=== PATIENT | female | born 1995 | race Caucasian/White ===

== ENCOUNTER 2023-05-26 13:59 | Outpatient (OUT) | payer BC, SELFPAY ==
--- NOTE | 2023-05-26 14:01 | US_ITS ---
The [address] [address] Patient Name: SUNNY RICHARDSON MRN: [id number] date: 1995 Sex: F Assigned Patient Location: US Current Patient Location: US Accession/Order Number: [id number] Exam Date: 05/26/2023 14:03 Report Date: 05/26/2023 15:45 At the request of: JESSICA HUGHES Procedure: US pelvis w/ transvaginal EXAMINATION: US pelvis w/ transvaginal HISTORY: Pelvic And Perineal Pain COMPARISON: No relevant comparison available. FINDINGS: The uterus is normal in size, contour and echotexture measuring 6.7 x 4.4 x 4.0 cm. Retroflexed. No focal myometrial mass. The endometrium measures 8.2 mm, normal. The right ovary is normal measuring 2.5 x 1.4 x 1.4 cm. Normal color and Doppler flow. Multiple peripheral subcentimeter anechoic areas consistent with follicles measuring from 2 to 3 mm in size. The left ovary is normal in appearance measuring 2.0 x 1.8 x 1.4 cm. Normal color and multiple peripheral subcentimeter anechoic areas consistent with follicles measuring 2 to 4 mm in size. US/US pelvis w/ transvaginal IMPRESSION: Multiple bilateral peripheral follicles not meeting criteria for polycystic ovarian morphology Normal uterus Electronically authenticated by: PATRICIA LOAIZA Date: 05/26/2023 15:45
== END 2023-05-26 14:00 | disposition home or self-care (01) ==
LOC: US 13:59
PROVIDERS: PCP Nurse Practitioner; Visit Provider Nurse Practitioner
DX: R10.2 Pelvic and perineal pain (principal)
CPT/HCPCS: 76830; 76856

== ENCOUNTER 2024-04-19 20:45 | Outpatient (REF) | payer BC, SELFPAY ==
--- OUTSIDE RECORDS SUMMARY | 2024-04-19 20:48 | XMS_ITS | CCD ---
Author Organization [facility] Care Team Providers Care Sheet Finisher Name Role Phone Barbra Davis Unavailable Jaye Lyn Unavailable DIAB ., KETTY Attending Unavailable DIAB ., KETTY Consulting Unavailable DIAB . KETTY Admitting Unavailable MCGREGOR ., DR LINDY Renteria Primary Care Unavailable CAROL ., DR LO Attending Unavailable CAROL ., DR LO Consulting Unavailable CAROL ., DR LO Admitting Unavailable MCGREGOR ., DR LINDY Renteria Primary Care Unavailable Dana Cazares Primary Care Physician [phone] Juliette Marquez Unavailable Barbra Davis Attending Unavailable Barbra Davis Admitting Unavailable Lindy Mcgregor MD Primary Care Provider [phone] YESICA SALDIVAR Attending Unavailable RUSHERLAYO Attending Unavailable RUSHERLAYO Attending Unavailable RUSHERLAYO Attending Unavailable DeboraDana Attending Unavailable DeboraDana burgos Attending Unavailable MD Aashish Bazan Attending Unavailable DeboraDana burgos Attending Unavailable Sher FINE Attending Unavailable DeboraDana Attending Unavailable DeboraDana Attending Unavailable Medications Current Medications Medication Drug Class(es) Dates Sig (Normalized) Sig (Original) amoxicillin 875 mg / clavulanate 125 mg oral tablet (1 source) Penicillin-class Antibacterial Start: 09-28-2021 take 1 tablet by mouth every twelve hours Amoxicillin-Pot Clavulanate 875-125 MG 1 tablet Orally every 12 hrs for 10 day(s) Sep, Active Ethinyl Estradiol / Levonorgestrel (1 source) Progestin, Estrogen, Progestin-containing Intrauterine Device Start: 03-25-2023 levonorgestrel-e thinyl estradiol (Seasonale) 0.15-0.03 MG tablet Take 1 tablet by mouth in the morning. 0 03/25/2023 Active fluticasone propionate 0.05 mg/actuat metered dose nasal spray (1 source) Corticosteroid Start: 09-28-2021 take 2 spray(s) nasal route once daily Fluticasone Propionate 50 MCG/ACT 2 sprays Nasally Once a day for 14 day(s) Sep, Active ibuprofen 800 mg oral tablet (8 sources) Nonsteroidal Anti-inflammatory Drug Start: 01-30-2023 take 1 tablet by mouth every eight hours ibuprofen 800 MG tablet Take 800 mg by mouth every 8 (eight) hours. PRN 0 01/30/2023 Active predniSONE 20 mg oral tablet (1 source) Start: 09-28-2021 take 1 tablet by mouth every twelve hours predniSONE 20 MG 1 tablet Orally bid for 5 day(s) Sep, Active terbinafine 250 mg oral tablet (5 sources) Allylamine Antifungal take 1 tablet by mouth in the morning terbinafine (LamISIL) 250 MG tablet Take 250 mg by mouth in the morning. 0 Active LamISIL TABLET F OR TOE NAIL FUNGUS Active Completed/Discontinued Medications Medication Drug Class(es) Dates Sig (Normalized) Sig (Original) cyclobenzaprine hydrochloride 10 mg oral tablet (4 sources) Muscle Relaxant take 1 tablet by mouth every eight hours as needed Cyclobenzaprine HCl 10 MG 1 tablet Orally every 8 hours prn for 7 days Not-Taking Triamcinolone (6 sources) Corticosteroid Start: 05-21-2016 KENALOG - 10 mg May, 40 mg Problems Active Problems Problem Classification Problem Date Documented Da te Episodic/Chronic Acute bronchitis (6 sources) Acute bronchitis; Translations: [Acute bronchitis] Episodic Genitourinary symptoms and ill-defined conditions (3 sources) Dysuria; Translations: [Dysuria] Onset: 05-11-2023 Episodic Other connective tissue disease (1 source) Pain in hallux; Translations: [Pain in right toe(s)] 07-16-2023 Episodic Other nervous system disorders (1 source) Difficulty walking; Translations: [Difficulty in walking, not elsewhere classified] 07-16-2023 Chronic Other nutritional; endocrine; and metabolic disorders (2 sources) Overweight in adulthood with body mass index of 25 or more but less than 30 02-25-2023 Episodic Other skin disorders (1 source) Disorder of skin; Translations: [Other specified disorders of the skin and subcutaneous tissue] Onset: 02-25-2023 Episodic Other skin disorders (2 sources) Pilonidal disease 02-25-2023 Episodic Other skin disorders (1 source) Ingrowing nail; Translations: [Ingrowing nail] 07-16-2023 Episodic Other upper respiratory infections (8 sources) Upper respiratory infection; Translations: [Upper respiratory infection] Onset: 09-23-2021 Resolved: 09-28-2021 Episodic Skin and subcutaneous tissue infections (7 sources) Pilonidal cyst with abscess; Translations: [Pilonidal cyst] Onset: 11-10-2022 Episodic Sprains and strains (1 source) Strain of other muscles, fascia and tendons at shoulder and upper arm level, right arm, initial encounter Episodic Unclassified (4 sources) Patient encounter status 01-30-2023 Unclassified (1 source) Cancer cervix screening status 03-18-2023 Past or Other Problems Problem Classification Problem Date Documented Date Episodic/Chronic Fever of unknown origin (1 source) Fever, unspecified Onset: 09-23-2021 Resolved: 09-23-2021 Episodic Immunizations and screening for infectious disease (1 source) Encounter for screening for human papillomavirus (HPV); Translations: [ENC SCREENING HUMAN PAPILLOMAVIRUS] Onset: 03-06-2022 Episodic Other screening for suspected conditions (not mental disorders or infectious disease) (4 sources) Encounter for screening for malignant neoplasm of cervix; Translations: [ENC SCREENING MALIG NEOPLASM CERV] Onset: 03-05-2022 Episodic Results Test Name Value Interpretation Reference Range Facility Family Medicine Office/Clini c Noteon 04-11-2024 Family Medicine Office/Clinic Note Family Medicine Office/Clinic Note HPI Staff Jewell is a 28 year old female presenting with cough, congestion, Onset; Has had cough for about a month, was seen in on dx'd with bronchiolitis tx'd with albuterol, prednisone, and Benzonatate 100 mg She doesn't think her cough is getting better History of Present Illness pt presents today for cough >4 weeks. Review of Systems PHQ Score Initial Depression Screen Score: 2 SCORE Physical Exam Vitals & Measurements T: 36.1 ???C(Temporal Artery) HR: 86(Peripheral) RR: 20 BP: 122/84 SpO2: 100% HT: 66 in HT: 167.6 cm WT: 72.5 kg WT: 159.5 lb BMI: 25.81 General: alert, no acute distress ENMT: oral mucosa moist, no pharyngeal erythema or exudate Cardiovascular: regular rate and rhythm, normal peripheral perfusion Respiratory: Lungs CTA, respirations non labored Extremities: no deformity, no trauma Neurological: oriented x 4, LOC appropriate for age, CN II-XII intact, motor strength equal & normal bilaterally, speech normal Assessment/Plan 1. Bronchitis (J40: Bronchitis, not specified as acute or chronic) pt presents today with continued cough for greater than 4 weeks. was treated by with steroid, inhaler and Tessalon pearls. pt is still coughing. lungs are clear. will send in z louise and pt encouraged to get mucinex. RTC as needed Ordered: azithromycin, = 1 packet(s), Oral, As Directed, as directed on package labeling, X 5 day(s), # 6 tab(s), Refills(s) 0, Pharmacy: [facility]/pharmacy #[id number], 167.6, cm, 04/11/24 14:44:00 EDT, Height/Length Dosing, 72.5, kg, 04/11/24 14:44:00 EDT, Weight Dosing 2. BMI 25.0-25.9,adult (Z68.25: Body mass index [BMI] 25.0-25.9, adult) BMI education given Ordered: azithromycin, = 1 packet(s), Oral, As Directed, as directed on package labeling, X 5 day(s), # 6 tab(s), Refills(s) 0, Pharmacy: [facility]/pharmacy #[id number], 167.6, cm, 04/11/24 14:44:00 EDT, Height/Length Dosing, 72.5, kg, 04/11/24 14:44:00 EDT, Weight Dosing 3. Non-smoker (Z78.9: Other specified health status) continue not smoking Ordered: azithromycin, = 1 packet(s), Oral, As Directed, as directed on package labeling, X 5 day(s), # 6 tab(s), Refills(s) 0, Pharmacy: [facility]/pharmacy #[id number], 167.6, cm, 04/11/24 14:44:00 EDT, Height/Length Dosing, 72.5, kg, 04/11/24 14:44:00 EDT, Weight Dosing 4. Overweight (BMI 25.0-29.9) (E66.3: Overweight) see above Ordered: azithromycin, = 1 packet(s), Oral, As Directed, as directed on package labeling, X 5 day(s), # 6 tab(s), Refills(s) 0, Pharmacy: [facility]/pharmacy #[id number], 167.6, cm, 04/11/24 14:44:00 EDT, Height/Length Dosing, 72.5, kg, 04/11/24 14:44:00 EDT, Weight Dosing Follow-up No qualifying data available Problem List/Past Medical History Ongoing Bacterial vaginitis BMI 25.0-25.9,adult Bronchitis Cervical cancer screening PCOS (polycystic ovarian syndrome) Pelvic pain Pilonidal cyst Pilonidal disease Vaginal sasha Well woman exam Wellness examination Historical No qualifying data Procedure/Surgical History Reattachment of finger. Medications Albuterol (Eqv-Proventil HFA) 90 mcg/inh inhalation aerosol azithromycin 250 mg Tab, 1 packet(s), Oral, As Directed benzonatate 100 mg Cap ethinyl estradiol-levonorges trel extended cycle 30 mcg-0.15 mg Tab, See Instructions ibuprofen 800 mg Tab, 800 mg= 1 tab(s), Oral, q8hr, 1 refills Allergies No Known Allergies Social History Alcohol - Denies Alcohol Use, 02/25/2023 Never., 04/11/2024 Substance Abuse - Denies Substance Abuse, 02/25/2023 Never., 04/11/2024 Tobacco Never (less than 100 in lifetime) Tobacco Use:. Never Smokeless Tobacco Use:. Cigarettes, 04/11/2024 Family History Acute myocardial infarction: Grandparent. Cancer: Grandparent. Diabetes mellitus type 2: Grandparent. Immunizations Vaccine Date Status Comments influenza virus vaccine, inactivated - Not Given Postpone due to refusal [facility] Comment on above: Result Comment: Elec tronically Signed By: Dana Pastor\.amanda\Date and Time Signed: 04/11/24 14:57 EDT Ambulatory Visit Summaryon 1 08-11-2022 Ambulatory Visit Summary JEWELL RICHARDSON :1995 Visit Date:06/10/2023 Ambulatory Visit Instructions Your Diagnosis PCOS (polycystic ovarian syndrome) BMI 23.0-23.9, adult Non-smoker Your Care Team Attending Physician - Dana Pastor Primary Care Physician - Dana Pastor This Is Your Medications List ethinyl estradiol-levonorges trel (Jolessa oral tablet) ibuprofen (ibuprofen 800 mg Tab) Procedures Performed Reattachment of finger. Discharge Vitals Heart Rate (Peripheral) 76 Respiratory Rate 18 Blood Pressure 110/72 Height 167.6 cm Height 66 in Weight 67.0 kg Weight 147.4 lb BMI 23.85 Medications What How Much When Instructions Unchanged ethinyl estradiol-levonorges trel (Jolessa oral tablet) 1 Tablets By Mouth Every day Unchanged ibuprofen (ibuprofen 800 mg Tab) 1 Tablets By Mouth Every 8 hours Allergies No Known Allergies Problems Ongoing - Any problem that you are currently receiving treatment for. Bacterial vaginitis BMI 25.0-25.9,adult Cervical cancer screening PCOS (polycystic ovarian syndrome) Pelvic pain Pilonidal cyst Pilonidal disease Vaginal sasha Well woman exam Wellness examination Patient Survey You may receive a survey via text or e-mail asking about your office visit. Please share your experience with us by completing your survey. We appreciate your feedback and thank you for choosing us for your care. Education Materials Polycystic Ovary Syndrome Polycystic ovarian syndrome (PCOS) is a common hormonal disorder among women of reproductive age. In most women with PCOS, small fluid-filled sacs (cysts) grow on the ovaries. PCOS can cause problems with menstrual periods and make it hard to get and stay . If this condition is not treated, it can lead to serious health problems, such as diabetes and heart disease. What are the causes? The cause of this condition is not known. It may be due to certain factors, such as: ? Irregular menstrual cycle. ? High levels of certain hormones. ? Problems with the hormone that helps to control blood sugar (insulin). ? Certain genes. What increases the risk? You are more likely to develop this condition if you: ? Have a family history of PCOS or type 2 diabetes. ? Are overweight, eat unhealthy foods, and are not active. These factors may cause problems with blood sugar control, which can contribute to PCOS or PCOS symptoms. What are the signs or symptoms? Symptoms of this condition include: ? Ovarian cysts and sometimes pelvic pain. ? Menstrual periods that are not regular or are too heavy. ? Inability to get or stay . ? Increased growth of hair on the face, chest, stomach, back, thumbs, thighs, or toes. ? Acne or oily skin. Acne may develop during adulthood, and it may not get better with treatment. ? Weight gain or obesity. ? Patches of thickened and dark brown or black skin on the neck, arms, breasts, or thighs. How is this diagnosed? This condition is diagnosed based on: ? Your medical history. ? A physical exam that includes a pelvic exam. Your health care provider may look for areas of increased hair growth on your skin. ? Tests, such as: ? An ultrasound to check the ovaries for cysts and to view the lining of the uterus. ? Blood tests to check levels of sugar (glucose), male hormone (testosterone), and female hormones (estrogen and progesterone). How is this treated? There is no cure for this condition, but treatment can help to manage symptoms and prevent more health problems from developing. Treatment varies depending on your symptoms and if you want to have a baby or if you need control. Treatment may include: ? Making nutrition and lifestyle changes. ? Taking the progesterone hormone to start a menstrual period. ? Taking control pills to help you have regular menstrual periods. ? Taking medicines such as: ? Medicines to make you ovulate, if you want to get . ? Medicine to reduce extra hair growth. ? Having surgery in severe cases. This may involve making small holes in one or both of your ovaries. This decreases the amount of testosterone that your body makes. Follow these instructions at home: ? Take [id number]-whkuypp and prescription medicines only as told by your health care provider. ? Follow a healthy meal plan that includes lean proteins, complex carbohydrates, fresh fruits and vegetables, low-fat dairy products, healthy fats, and fiber. ? If you are overweight, lose weight as told by your health care provider. Your health care provider can determine how much weight loss is best for you and can help you lose weight safely. ? Keep all follow-up visits. This is important. Contact a health care provider if: ? Your symptoms do not get better with medicine. ? Your symptoms get worse or you develop new symptoms. Sum (more content not included)... Normal [facility] Medicine Office/Clini c Noteon 06-10-2023 Family Medicine Office/Clinic Note HPI Staff Jewell is a 27 year old female presenting to go over Ultrasound Pt has US of pelvis with transvaginal on 05/26/23 due to pain ,pt here to discuss results History of Present Illness pt presents today to discuss pelvic u/s results Review of Systems PHQ Score Initial Depression Screen Score: 1 SCORE ROS - Provider Constitutional: no fever, no chills, no sweats, no fatigue Respiratory: no shortness of breath, no cough, no orthopnea, no wheezing. Cardiovascular: no chest pain, no palpitations, no edema. Neurologic: no headache, no dizziness, no numbness, no weakness. Physical Exam Vitals & Measurements HR: 76(Peripheral) RR: 18 BP: 110/72 SpO2: 98% HT: 66 in HT: 167.6 cm WT: 67.0 kg WT: 147.4 lb BMI: 23.85 General: alert, no acute distress ENMT: oral mucosa moist, no pharyngeal erythema or exudate Cardiovascular: regular rate and rhythm, normal peripheral perfusion Respiratory: Lungs CTA, respirations non labored Extremities: no deformity, no trauma Neurological: oriented x 4, LOC appropriate for age, CN II-XII intact, motor strength equal & normal bilaterally, speech normal Assessment/Plan 1. PCOS (polycystic ovarian syndrome) (E28.2: Polycystic ovarian syndrome) pt presents today to go over pelvic u/s results. pt is also c/o vaginal irritation. she has an appointment with DR. Mcnulty tomorrow for the irritation. all questions answered. RTC as needed 2. BMI 23.0-23.9, adult (Z68.23: Body mass index [BMI] 23.0-23.9, adult) BMI education complete 3. Non-smoker (Z78.9: Other specified health status) continue not smoking Orders: fluconazole, 150 mg = 1 tab(s), Oral, Once, take one tab on day 1 and 1 tab on day 4, # 2 tab(s), Refills(s) 0, Pharmacy: [facility]/pharmacy #[id number], 167.6, cm, 05/19/23 8:23:00 EST, Height/Length Dosing, 68.2, kg, 05/19/23 8:23:00 EST, Weight Dosing metronidazole, 500 mg = 1 tab(s), Oral, q12hr, # 14 tab(s), Refills(s) 0, Pharmacy: [facility]/pharmacy #[id number], 167.6, cm, 05/19/23 8:23:00 EST, Height/Length Dosing, 68.2, kg, 05/19/23 8:23:00 EST, Weight Dosing Follow-up No qualifying data available Patient Education Polycystic Ovary Syndrome Ovarian Cyst, [id number] Diet for Polycystic Ovary Syndrome Problem List/Past Medical History Ongoing Bacterial vaginitis BMI 25.0-25.9,adult Cervical cancer screening PCOS (polycystic ovarian syndrome) Pelvic pain Pilonidal cyst Pilonidal disease Vaginal sasha Well woman exam Wellness examination Historical No qualifying data Procedure/Surgical History Reattachment of finger. Medications ibuprofen 800 mg Tab, 800 mg= 1 tab(s), Oral, q8hr, 1 refills Jolessa oral tablet, 1 tab(s), Oral, Daily, 2 refills Allergies No Known Allergies Social History Alcohol - Denies Alcohol Use, 02/25/2023 Substance Abuse - Denies Substance Abuse, 02/25/2023 Tobacco Never (less than 100 in lifetime) Tobacco Use:. Never Smokeless Tobacco Use:. Household tobacco concerns: No., 06/10/2023 Family History Acute myocardial infarction: Grandparent. Cancer: Grandparent. Diabetes mellitus type 2: Grandparent. Immunizations Vaccine Date Status Comments influenza virus vaccine, inactivated - Not Given Postpone due to refusal [facility] Comment on above: Result Comment: Elec tronically Signed By: Dana Pastor\.amanda\Date and Time Signed: 06/10/23 08:52 EST Patient Educationon 06-10-20 Patient Education Obstetrics and Gynecology Polycystic Ovary Syndrome Polycystic ovarian syndrome (PCOS) is a common hormonal disorder among women of reproductive age. In most women with PCOS, small fluid-filled sacs (cysts) grow on the ovaries. PCOS can cause problems with menstrual periods and make it hard to get and stay . If this condition is not treated, it can lead to serious health problems, such as diabetes and heart disease. What are the causes? The cause of this condition is not known. It may be due to certain factors, such as: ? Irregular menstrual cycle. ? High levels of certain hormones. ? Problems with the hormone that helps to control blood sugar (insulin). ? Certain genes. What increases the risk? You are more likely to develop this condition if you: ? Have a family history of PCOS or type 2 diabetes. ? Are overweight, eat unhealthy foods, and are not active. These factors may cause problems with blood sugar control, which can contribute to PCOS or PCOS symptoms. What are the signs or symptoms? Symptoms of this condition include: ? Ovarian cysts and sometimes pelvic pain. ? Menstrual periods that are not regular or are too heavy. ? Inability to get or stay . ? Increased growth of hair on the face, chest, stomach, back, thumbs, thighs, or toes. ? Acne or oily skin. Acne may develop during adulthood, and it may not get better with treatment. ? Weight gain or obesity. ? Patches of thickened and dark brown or black skin on the neck, arms, breasts, or thighs. How is this diagnosed? This condition is diagnosed based on: ? Your medical history. ? A physical exam that includes a pelvic exam. Your health care provider may look for areas of increased hair growth on your skin. ? Tests, such as: ? An ultrasound to check the ovaries for cysts and to view the lining of the uterus. ? Blood tests to check levels of sugar (glucose), male hormone (testosterone), and female hormones (estrogen and progesterone). How is this treated? There is no cure for this condition, but treatment can help to manage symptoms and prevent more health problems from developing. Treatment varies depending on your symptoms and if you want to have a baby or if you need control. Treatment may include: ? Making nutrition and lifestyle changes. ? Taking the progesterone hormone to start a menstrual period. ? Taking control pills to help you have regular menstrual periods. ? Taking medicines such as: ? Medicines to make you ovulate, if you want to get . ? Medicine to reduce extra hair growth. ? Having surgery in severe cases. This may involve making small holes in one or both of your ovaries. This decreases the amount of testosterone that your body makes. Follow these instructions at home: ? Take [id number]-bmkltvt and prescription medicines only as told by your health care provider. ? Follow a healthy meal plan that includes lean proteins, complex carbohydrates, fresh fruits and vegetables, low-fat dairy products, healthy fats, and fiber. ? If you are overweight, lose weight as told by your health care provider. Your health care provider can determine how much weight loss is best for you and can help you lose weight safely. ? Keep all follow-up visits. This is important. Contact a health care provider if: ? Your symptoms do not get better with medicine. ? Your symptoms get worse or you develop new symptoms. Summary ? Polycystic ovarian syndrome (PCOS) is a common hormonal disorder among women of reproductive age. ? PCOS can cause problems with menstrual periods and make it hard to get and stay . ? If this condition is not treated, it can lead to serious health problems, such as diabetes and heart disease. ? There is no cure for this condition, but treatment can help to manage symptoms and prevent more health problems from developing. This information is not intended to replace advice given to you by your health care provider. Make sure you discuss any questions you have with your health care provider. Document Revised: 11/08/2020 Document Reviewed: 11/08/2020 [employer] Patient Education ? 2022 [employer]. Ovarian Cyst An ovarian cyst is a fluid-filled sac on an ovary. Most of these cysts go away on their own and are not cancer. Some cysts need treatment. What are the causes? ? Ovarian hyperstimulation syndrome. Some medicines may lead to this problem. ? Polycystic ovarian syndrome (PCOS). Problems with body chemicals (hormones) can lead to this condition. ? The normal menstrual cycle. What increases the risk? ? Being overweight or very overweight. ? Taking medicines to increase your chance of getting . ? Using some types of control. ? Smoking. What are the signs or symptoms? Many ovarian cysts do not cause symptoms. If you get symptoms, you may have: ? Pain or pressure in the area between th (more content not included)... Normal [facility] RAD - Ultrasound Reporton RAD - Ultrasound Report [id number] Normal [facility] Ambulatory Visit Summaryon 1 07-20-2022 Ambulatory Visit Summary JEWELL RICHARDSON :1995 Visit Date:05/19/2023 Ambulatory Visit Instructions Your Diagnosis Pelvic pain Bacterial vaginitis Vaginal sasha Dysuria Other specified bacterial agents as the cause of diseases classified elsewhere Tests Performed Urnls Dip Stick Auto w/o Microscopy POC 97033 Your Care Team Attending Physician - Dana Pastor Primary Care Physician - Dana Pastor This Is Your Medications List ethinyl estradiol-levonorges trel (Jolessa oral tablet) fluconazole (fluconazole 150 mg Tab) ibuprofen (ibuprofen 800 mg Tab) metronidazole (MetroNIDAZOLE 500 mg Tab) Procedures Performed Reattachment of finger. Discharge Vitals Temperature (Temporal Artery) 36.5 ?C Heart Rate (Peripheral) 78 Respiratory Rate 16 Blood Pressure 122/72 Height 167.6 cm Height 66 in Weight 68.2 kg Weight 150.04 lb BMI 24.28 Medications What How Much When Instructions Changed fluconazole (fluconazole 150 mg Tab) 1 Tablets By Mouth Once take one tab on day 1 and 1 tab on day 4 Pickup at [facility]/pharmacy #[id number] Unchanged ethinyl estradiol-levonorges trel (Jolessa oral tablet) 1 Tablets By Mouth Every day Unchanged ibuprofen (ibuprofen 800 mg Tab) 1 Tablets By Mouth Every 8 hours Unchanged metronidazole (MetroNIDAZOLE 500 mg Tab) 1 Tablets By Mouth Every 12 hours Pickup at [facility]/pharmacy #[id number] Pharmacy Information [facility]/pharmacy #[id number]: [address], [place] [id number] [phone] Test Results Urnls Dip Stick Auto w/o Microscopy POC 84600 (05/19/2023) Bilirubin Urine Dipstick - Negative Blood Urine Dipstick - Negative Glucose Urine Dipstick - Negative Ketones Urine Dipstick - 1+ 15 mg/dl Leukocytes Urine Dipstick - Negative Nitrite Urine Dipstick - Negative Protein Urine Dipstick - Negative Specific Ewing Urine Dipstick - 1.010 Urine Appearance Urine Dipstick - Clear Urine Color Urine Dipstick - Light yellow Urobilinogen Urine Dipstick - Normal 0.2-1 EU/dl pH Urine Dipstick - 5.5 Allergies No Known Allergies Problems Ongoing - Any problem that you are currently receiving treatment for. Bacterial vaginitis BMI 25.0-25.9,adult Cervical cancer screening Pelvic pain Pilonidal cyst Pilonidal disease Vaginal sasha Well woman exam Wellness examination Patient Survey You may receive a survey via text or e-mail asking about your office visit. Please share your experience with us by completing your survey. We appreciate your feedback and thank you for choosing us for your care. Giuseppe Mon [facility] Medicine Office/Clini c Noteon 05-19-2023 Family Medicine Office/Clinic Note HPI Staff Jewell is a 27 year old female presenting for UTI symptoms - Pt has had some issues for about 2 weeks, was here 2 weeks ago, feeling better today. Wants to discuss vaginal issues. Frequency over the weekend. Dysuria: Onset: Before thanksgiving. Symptoms: Burning, itchy in vaginal area. OTC used: no Last UTI: 2weeks ago - saw Dr Bazan here. Hx of kidney stones: no. UA in office documented in chart - doxycicline, flucanazole. History of Present Illness pt presents today with vaginal itching/burning Review of Systems PHQ Score Initial Depression Screen Score: 0 SCORE ROS - Provider Constitutional: no fever, no chills, no sweats, no fatigue Respiratory: no shortness of breath, no cough, no orthopnea, no wheezing. Cardiovascular: no chest pain, no palpitations, no edema. Neurologic: no headache, no dizziness, no numbness, no weakness. vaginal burning/itching, fishy odor Physical Exam Vitals & Measurements T: 36.5 ?C(Temporal Artery) HR: 78(Peripheral) RR: 16 BP: 122/72 SpO2: 98% HT: 66 in HT: 167.6 cm WT: 68.2 kg WT: 150.04 lb BMI: 24.28 General: alert, no acute distress ENMT: oral mucosa moist, no pharyngeal erythema or exudate Cardiovascular: regular rate and rhythm, normal peripheral perfusion Respiratory: Lungs CTA, respirations non labored Extremities: no deformity, no trauma Neurological: oriented x 4, LOC appropriate for age, CN II-XII intact, motor strength equal & normal bilaterally, speech normal perineum and vaginal opening red small amount of white discharge noted Assessment/Plan 1. Pelvic pain (R10.2: Pelvic and perineal pain) pt c/o pelvic pain will order pelvic u/s for TB order provided and faxed. all questions answered. RTC as needed 2. Bacterial vaginitis (N76.0: Acute vaginitis) pt c/o vaginal irritation and fishy odor 3. Vaginal sasha (B37.31: Acute candidiasis of vulva and vagina) vaginal opening red and white discharge noted Dysuria (R30.0: Dysuria) u/a negative in office today Ordered: fluconazole, 150 mg = 1 tab(s), Oral, Once, # 1 tab(s), Refills(s) 0, [id number] 167.6, cm, 05/05/23 15:42:00 EST, Height/Length Dosing, 69.3, kg, 05/05/23 15:42:00 EST, Weight Dosing Urnls Dip Stick Auto w/o Microscopy POC 69288 Urnls Dip Stick Auto w/o Microscopy POC 14801 Other specified bacterial agents as the cause of diseases classified elsewhere (B96.89: Other specified bacterial agents as the cause of diseases classified elsewhere) flagyl sent to pharmacy Orders: fluconazole, 150 mg = 1 tab(s), Oral, Once, take one tab on day 1 and 1 tab on day 4, # 2 tab(s), Refills(s) 0, [id number], 167.6, cm, 05/19/23 8:23:00 EST, Height/Length Dosing, 68.2, kg, 05/19/23 8:23:00 EST, Weight Dosing metronidazole, 500 mg = 1 tab(s), Oral, q12hr, # 14 tab(s), Refills(s) 0, [id number], 167.6, cm, 05/19/23 8:23:00 EST, Height/Length Dosing, 68.2, kg, 05/19/23 8:23:00 EST, Weight Dosing Follow-up No qualifying data available Problem List/Past Medical History Ongoing Bacterial vaginitis BMI 25.0-25.9,adult Cervical cancer screening Pelvic pain Pilonidal cyst Pilonidal disease Vaginal sasha Well woman exam Wellness examination Historical No qualifying data Procedure/Surgical History Reattachment of finger. Medications fluconazole 150 mg Tab, 150 mg= 1 tab(s), Oral, Once ibuprofen 800 mg Tab, 800 mg= 1 tab(s), Oral, q8hr, 1 refills Jolessa oral tablet, 1 tab(s), Oral, Daily, 2 refills MetroNIDAZOLE 500 mg Tab, 500 mg= 1 tab(s), Oral, q12hr Allergies No Known Allergies Social History Alcohol - Denies Alcohol Use, 02/25/2023 Substance Abuse - Denies Substance Abuse, 02/25/2023 Tobacco Never (less than 100 in lifetime) Tobacco Use:. Never Smokeless Tobacco Use:. Household tobacco concerns: No., 05/19/2023 Family History Acute myocardial infarction: Grandparent. Cancer: Grandparent. Diabetes mellitus type 2: Grandparent. Immunizations Vaccine Date Status Comments influenza virus vaccine, inactivated - Not Given Postpone due to refusal Lab Results Ambulatory Point of Care Results Bilirubin Urine Dipstick: Negative (05/19/23 08:23:00) Blood Urine Dipstick: Negative (05/19/23 08:23:00) Glucose Urine Dipstick: Negative (05/19/23 08:23:00) Ketones Urine Dipstick: 1+ 15 mg/dl (05/19/23 08:23:00) Leukocytes Urine Dipstick: Negative (05/19/23 08:23:00) Nitrite Urine Dipstick: Negative (05/19/23 08:23:00) Protein Urine Dipstick: Negative (05/19/23 08:23:00) Specific Ewing Urine Dipstick: 1.010 (05/19/23 08:23:00) Urine Appearance Urine Dipstick: Clear (05/19/23 08:23:00) Urine Color Urine Dipstick: Light yellow (05/19/23 08:23:00) Urobilinogen Urine Dipstick: Normal 0.2-1 EU/dl (05/19/23 08:23:00) pH Urine Dipstick: 5.5 (05/19/23 08:23:00) Normal [facility] Comment on above: Result Comment: Elec tronically Signed By: Dana Pastor\.br\Date and Time Signed: 05/19/23 08:49 EST Physician Orderon 05-19-2023 Physician Order [id number] #[id number] Normal [facility] Urinalysis - AUTOMATEDon Appearance (U) cloudy [employer] Other Bilirubin Ql (U) Negative [employer] Other Color (U) light yellow [employer] Other Glucose Ql (U) Negative [employer] Other Hemoglobin Ql (U) trace [employer] Other Ketones Ql (U) Negative [employer] Other Leukocyte esterase Test strip Ql (U) small [employer] Other Nitrite Ql (U) neative [employer] Other pH (U) 6.5 [pH] [employer] Other Protein Ql (U) Negative [employer] Other Specific gravity (U) [Rel density] 1.010 [employer] Other Urobilinogen (U) [Mass/Vol] 0.2 mg/dL [employer] Other Urinalysis - AUTOMATED [employer] Other Urine Cultureon 05-11-2023 Bacteria identified Cx Nom (U) 50,000 colonies/ml mixed bacterial skin contaminants 2 Days PERFORMED BY: [place] [address] PATHOLOGIST PIPE CONNECTOR BRADFORD ANNE M.D. [facility] Comment on above: Performed By: #### C UU #### [address] Bacteria identified Cx Nom (U) [employer] Other Ambulatory Visit Summaryon 1 07-05-2022 Ambulatory Visit Summary JEWELL RICHARDSON :1995 Visit Date:05/05/2023 Ambulatory Visit Instructions Your Diagnosis BMI 24.0-24.9, adult Nonsmoker Dysuria Urinary frequency Tests Performed Urnls Dip Stick Auto w/o Microscopy POC 60885 Your Care Team Attending Physician - Aashish Bazan MD Primary Care Physician - Dana Pastor This Is Your Medications List ethinyl estradiol-levonorges trel (Jolessa oral tablet) ibuprofen (ibuprofen 800 mg Tab) Procedures Performed Reattachment of finger. Discharge Vitals Temperature (Temporal Artery) 37.2 ?C Heart Rate (Peripheral) 88 Respiratory Rate 14 Blood Pressure 120/76 Height 167.6 cm Height 66 in Weight 69.3 kg Weight 152.46 lb BMI 24.67 Medications What How Much When Instructions Unchanged ethinyl estradiol-levonorges trel (Jolessa oral tablet) 1 Tablets By Mouth Every day Unchanged ibuprofen (ibuprofen 800 mg Tab) 1 Tablets By Mouth Every 8 hours Test Results Urnls Dip Stick Auto w/o Microscopy POC 71822 (05/05/2023) Bilirubin Urine Dipstick - Negative Blood Urine Dipstick - Trace-intact Glucose Urine Dipstick - Negative Ketones Urine Dipstick - Negative Leukocytes Urine Dipstick - 1+ Small Nitrite Urine Dipstick - Negative Protein Urine Dipstick - Negative Specific Ewing Urine Dipstick - 1.020 Urine Appearance Urine Dipstick - Clear Urine Color Urine Dipstick - Yellow Urobilinogen Urine Dipstick - Normal 0.2-1 EU/dl pH Urine Dipstick - 6.5 Medications and Immunizations Administered Not Given influenza virus vaccine, inactivated, Postpone due to refusal Allergies No Known Allergies Problems Ongoing - Any problem that you are currently receiving treatment for. BMI 25.0-25.9,adult Cervical cancer screening Pilonidal cyst Pilonidal disease Well woman exam Wellness examination Patient Survey You may receive a survey via text or e-mail asking about your office visit. Please share your experience with us by completing your survey. We appreciate your feedback and thank you for choosing us for your care. [facility] Ambulatory Visit Summary JEWELL RICHARDSON :1995 Visit Date:05/05/2023 Ambulatory Visit Instructions Your Diagnosis BMI 24.0-24.9, adult Nonsmoker Dysuria Urinary frequency Tests Performed Urnls Dip Stick Auto w/o Microscopy POC 17553 Your Care Team Attending Physician - Aashish Bazan MD Primary Care Physician - Dana Pastor This Is Your Medications List ethinyl estradiol-levonorges trel (Jolessa oral tablet) ibuprofen (ibuprofen 800 mg Tab) Procedures Performed Reattachment of finger. Discharge Vitals Temperature (Temporal Artery) 37.2 ?C Heart Rate (Peripheral) 88 Respiratory Rate 14 Blood Pressure 120/76 Height 167.6 cm Height 66 in Weight 69.3 kg Weight 152.46 lb BMI 24.67 Medications What How Much When Instructions Unchanged ethinyl estradiol-levonorges trel (Jolessa oral tablet) 1 Tablets By Mouth Every day Unchanged ibuprofen (ibuprofen 800 mg Tab) 1 Tablets By Mouth Every 8 hours Test Results Urnls Dip Stick Auto w/o Microscopy POC 19033 (05/05/2023) Bilirubin Urine Dipstick - Negative Blood Urine Dipstick - Trace-intact Glucose Urine Dipstick - Negative Ketones Urine Dipstick - Negative Leukocytes Urine Dipstick - 1+ Small Nitrite Urine Dipstick - Negative Protein Urine Dipstick - Negative Specific Ewing Urine Dipstick - 1.020 Urine Appearance Urine Dipstick - Clear Urine Color Urine Dipstick - Yellow Urobilinogen Urine Dipstick - Normal 0.2-1 EU/dl pH Urine Dipstick - 6.5 Medications and Immunizations Administered Not Given influenza virus vaccine, inactivated, Postpone due to refusal Allergies No Known Allergies Problems Ongoing - Any problem that you are currently receiving treatment for. BMI 25.0-25.9,adult Cervical cancer screening Pilonidal cyst Pilonidal disease Well woman exam Wellness examination Patient Survey You may receive a survey via text or e-mail asking about your office visit. Please share your experience with us by completing your survey. We appreciate your feedback and thank you for choosing us for your care. Giuseppe Mon [facility] Family Medicine Office/Clini c Noteon 05-05-2023 Family Medicine Office/Clinic Note HPI Staff Jewell is a 27 year old female presenting for acute visit Acute: UTI Dysuria: Onset: thursday Symptoms: frequency, burning w/ urination, cloudy urine, itchy feeling also OTC used: cranberry juice, water, no coffee and OTC cranberry pills Last UTI: year and half ago Hx of kidney stones: none UA in office documented in chart flu: refused History of Present Illness - Here for UTI symptoms. See staff HPI Review of Systems PHQ Score Initial Depression Screen Score: 1 SCORE Physical Exam Vitals & Measurements T: 37.2 ?C(Temporal Artery) HR: 88(Peripheral) RR: 14 BP: 120/76 SpO2: 99% HT: 66 in HT: 167.6 cm WT: 69.3 kg WT: 152.46 lb BMI: 24.67 General: alert, no acute distress ENMT: oral mucosa moist, Cardiovascular: normal peripheral perfusion Respiratory: respirations non labored Extremities: no deformity, no trauma Neurological: oriented x 4, LOC appropriate for age, CN II-XII intact, motor strength equal & normal bilaterally, speech normal Assessment/Plan 1. Dysuria (R30.0: Dysuria) - Will treat with positive nitrates - Send for culture Ordered: doxycycline, 100 mg = 1 tab(s), Oral, q12hr, X 5 day(s), # 10 tab(s), Refills(s) 0, Pharmacy: [facility]/pharmacy #[id number], 167.6, cm, 05/05/23 15:42:00 EST, Height/Length Dosing, 69.3, kg, 05/05/23 15:42:00 EST, Weight Dosing fluconazole, 150 mg = 1 tab(s), Oral, Once, # 1 tab(s), Refills(s) 0, Pharmacy: [facility]/pharmacy #[id number], 167.6, cm, 05/05/23 15:42:00 EST, Height/Length Dosing, 69.3, kg, 05/05/23 15:42:00 EST, Weight Dosing Urnls Dip Stick Auto w/o Microscopy POC 33109 2. Urinary frequency (R35.0: Frequency of micturition) - As above Ordered: doxycycline, 100 mg = 1 tab(s), Oral, q12hr, X 5 day(s), # 10 tab(s), Refills(s) 0, Pharmacy: [facility]/pharmacy #[id number], 167.6, cm, 05/05/23 15:42:00 EST, Height/Length Dosing, 69.3, kg, 05/05/23 15:42:00 EST, Weight Dosing fluconazole, 150 mg = 1 tab(s), Oral, Once, # 1 tab(s), Refills(s) 0, Pharmacy: [facility]/pharmacy #[id number], 167.6, cm, 05/05/23 15:42:00 EST, Height/Length Dosing, 69.3, kg, 05/05/23 15:42:00 EST, Weight Dosing Urnls Dip Stick Auto w/o Microscopy POC 00455 3. BMI 24.0-24.9, adult (Z68.24: Body mass index [BMI] 24.0-24.9, adult) - BMI education uploaded Ordered: doxycycline, 100 mg = 1 tab(s), Oral, q12hr, X 5 day(s), # 10 tab(s), Refills(s) 0, [id number] 167.6, cm, 05/05/23 15:42:00 EST, Height/Length Dosing, 69.3, kg, 05/05/23 15:42:00 EST, Weight Dosing fluconazole, 150 mg = 1 tab(s), Oral, Once, # 1 tab(s), Refills(s) 0, [id number], 167.6, cm, 05/05/23 15:42:00 EST, Height/Length Dosing, 69.3, kg, 05/05/23 15:42:00 EST, Weight Dosing 4. Nonsmoker (Z78.9: Other specified health status) - Please continue to not smoke Ordered: doxycycline, 100 mg = 1 tab(s), Oral, q12hr, X 5 day(s), # 10 tab(s), Refills(s) 0, [id number], 167.6, cm, 05/05/23 15:42:00 EST, Height/Length Dosing, 69.3, kg, 05/05/23 15:42:00 EST, Weight Dosing fluconazole, 150 mg = 1 tab(s), Oral, Once, # 1 tab(s), Refills(s) 0, [id number], 167.6, cm, 05/05/23 15:42:00 EST, Height/Length Dosing, 69.3, kg, 05/05/23 15:42:00 EST, Weight Dosing Follow-up No qualifying data available Patient Education Dysuria BMI for Adults Problem List/Past Medical History Ongoing BMI 25.0-25.9,adult Cervical cancer screening Pilonidal cyst Pilonidal disease Well woman exam Wellness examination Historical No qualifying data Procedure/Surgical History Reattachment of finger. Medications Diflucan 150 mg Tab, 150 mg= 1 tab(s), Oral, Once doxycycline hyclate 100 mg Tab, 100 mg= 1 tab(s), Oral, q12hr ibuprofen 800 mg Tab, 800 mg= 1 tab(s), Oral, q8hr, 1 refills Jolessa oral tablet, 1 tab(s), Oral, Daily, 2 refills Allergies No Known Allergies Social History Alcohol - Denies Alcohol Use, 02/25/2023 Substance Abuse - Denies Substance Abuse, 02/25/2023 Tobacco Never (less than 100 in lifetime) Tobacco Use:. Never Smokeless Tobacco Use:. Household tobacco concerns: No., 05/05/2023 Family History Acute myocardial infarction: Grandparent. Cancer: Grandparent. Diabetes mellitus type 2: Grandparent. Immunizations Vaccine Date Status Comments influenza virus vaccine, inactivated - Not Given Postpone due to refusal Lab Results Ambulatory Point of Care Results Bilirubin Urine Dipstick: Negative (05/05/23 15:46:00) Blood Urine Dipstick: Trace-intact (05/05/23 15:46:00) Glucose Urine Dipstick: Negative (05/05/23 15:46:00) Ketones Urine Dipstick: Negative (05/05/23 15:46:00) Leukocytes Urine Dipstick: 1+ Small (05/05/23 15:46:00) Nitrite Urine Dipstick: Negative (05/05/23 15:46:00) Protein Urine Dipstick: Negative (05/05/23 15:46:00) Specific Ewing Urine Dipstick: 1.020 (05/05/23 15:46:00) Urine Appearance Urine Dipstick: Clear (05/05/23 15:46:00) Urine Color Urine Dipstick: Yellow (05/05/23 15:46:00) Urobilinogen Urine Dipstic (more content not included)... Normal [facility] Comment on above: Result Comment: Elec tronically Signed By: Beni LORENZANA, Aashish Pollard\.br\Date and Time Signed: 05/05/23 16:09 EST Patient Educationon 05-05-20 Patient Education Nutrition BMI for Adults What is BMI? Body mass index (BMI) is a number that is calculated from a person's weight and height. BMI can help estimate how much of a person's weight is composed of fat. BMI does not measure body fat directly. Rather, it is an alternative to procedures that directly measure body fat, which can be difficult and expensive. BMI can help identify people who may be at higher risk for certain medical problems. What are BMI measurements used for? BMI is used as a screening tool to identify possible weight problems. It helps determine whether a person is obese, overweight, a healthy weight, or underweight. BMI is useful for: ? Identifying a weight problem that may be related to a medical condition or may increase the risk for medical problems. ? Promoting changes, such as changes in diet and exercise, to help reach a healthy weight. BMI screening can be repeated to see if these changes are working. How is BMI calculated? BMI involves measuring your weight in relation to your height. Both height and weight are measured, and the BMI is calculated from those numbers. This can be done either in [place] or metric measurements. Note that charts and online BMI calculators are available to help you find your BMI quickly and easily without having to do these calculations yourself. To calculate your BMI in [place] measurements: 1. Measure your weight in pounds (lb). 2. Multiply the number of pounds by 703. ? For example, for a person who weighs 180 lb, multiply that number by 703, which equals 126,540. 3. Measure your height in inches. Then multiply that number by itself to get a measurement called inches squared. ? For example, for a person who is 70 inches tall, the inches squared measurement is 70 inches x 70 inches, which equals 4,900 inches squared. 4. Divide the total from step 2 (number of lb x 703) by the total from step 3 (inches squared): 126,540 ? 4,900 = 25.8. This is your BMI. To calculate your BMI in metric measurements: 1. Measure your weight in kilograms (kg). 2. Measure your height in meters (m). Then multiply that number by itself to get a measurement called meters squared. ? For example, for a person who is 1.75 m tall, the meters squared measurement is 1.75 m x 1.75 m, which is equal to 3.1 meters squared. 3. Divide the number of kilograms (your weight) by the meters squared number. In this example: 70 ? 3.1 = 22.6. This is your BMI. What do the results mean? BMI charts are used to identify whether you are underweight, normal weight, overweight, or obese. The following guidelines will be used: ? Underweight: BMI less than 18.5. ? Normal weight: BMI between 18.5 and 24.9. ? Overweight: BMI between 25 and 29.9. ? Obese: BMI of 30 or above. Keep these notes in mind: ? Weight includes both fat and muscle, so someone with a muscular build, such as an athlete, may have a BMI that is higher than 24.9. In cases like these, BMI is not an accurate measure of body fat. ? To determine if excess body fat is the cause of a BMI of 25 or higher, further assessments may need to be done by a health care provider. ? BMI is usually interpreted in the same way for men and women. Where to find more information For more information about BMI, including tools to quickly calculate your BMI, go to these websites: ? Centers for Disease Control and Prevention: www.cdc.gov ? [place] Heart Association: www.heart.org ? National Heart, Lung, and Blood [place]: www.nhlbi.nih.gov Summary ? Body mass index (BMI) is a number that is calculated from a person's weight and height. ? BMI may help estimate how much of a person's weight is composed of fat. BMI can help identify those who may be at higher risk for certain medical problems. ? BMI can be measured using [place] measurements or metric measurements. ? BMI charts are used to identify whether you are underweight, normal weight, overweight, or obese. This information is not intended to replace advice given to you by your health care provider. Make sure you discuss any questions you have with your health care provider. Document Revised: 02/22/2020 Document Reviewed: 12/30/2019 [employer] Patient Education ? 2022 [employer] Urology Dysuria Dysuria is pain or discomfort during urination. The pain or discomfort may be felt in the part of the body that drains urine from the bladder (urethra) or in the surrounding tissue of the genitals. The pain may also be felt in the groin area, lower abdomen, or lower back. You may have to urinate frequently or have the sudden feeling that you have to urinate (urgency). Dysuria can affect anyone, but it is more common in females. Dysuria can be caused by many different things, including: ? Urinary tract infection. ? Kidney stones or bladder stones. ? Certain STIs (sexually transmitted infections), such as chlamydia. ? Dehydration. ? Inflammation of the tissues (more content not included)... Normal [facility] CHEMISTRYOrdered By: SYSTEM SYSTEM on 01-30-2023 Albumin [Mass/Vol] 4.6 g/dL Normal 3.3 - 5.0 gm/dL FT Remisol Albumin/Globulin [Mass ratio] 1.5 {ratio} Normal 1.1 - 2.2 [facility] Remisol ALP [Catalytic activity/Vol] 73 [iU]/d Normal 21 - 98 Int._Unit/L [facility] Remisol ALT No additional P-5'-P [Catalytic activity/Vol] 21 [iU]/d Normal 6 - 46 Int._Unit/L [facility] Remisol Anion gap [Moles/Vol] 10 mmol/L Normal 6 - 16 mEq/L [facility] Remisol AST [Catalytic activity/Vol] 20 [iU]/d Normal 5 - 43 Int._Unit/L [facility] Remisol Bilirubin [Mass/Vol] 0.7 mg/dL Normal 0.0 - 1 .1 mg/dL [facility] Remisol Calcium [Mass/Vol] 9.8 mg/dL Normal 8.9 - 11. 1 mg/dL [facility] Remisol Chloride [Moles/Vol] 109 mmol/L Normal 101 - 1 11 mmol/L [facility] Rem[facility] CO2 [Moles/Vol] 24 mmol/L Normal 21 - 31 mmol/L [facility] Remisol Creatinine [Mass/Vol] 0.7 mg/dL Normal 0.5 - 1.3 mg/dL [facility] Remisol GFR/1.73 sq M.predicted among non-blacks MDRD (S/P/Bld) [Vol rate/Area] 122 mL/min/1.73 m2 Normal >=59mL/min/1. 73 m2 FT Chem S Globulin (S) [Mass/Vol] 3.0 g/dL Normal 1.4 - 4.0 gm/dL [facility] Remisol Glucose [Mass/Vol] 70 mg/dL Normal 55 - 199 mg/dL [facility] Remisol Potassium [Moles/Vol] 4.0 mmol/L Normal 3.5 - 5.3 mmol/L [facility] Remisol Protein [Mass/Vol] 7.6 g/dL Normal 6.0 - 7.8 gm/dL [facility] Remisol Sodium [Moles/Vol] 139 mmol/L Normal 135 - 145 mmol/L [facility]isol TSH Qn 1.07 m[IU]/L Normal 0.34 - 5.60 mcIU/mL [facility] Remisol Urea nitrogen [Mass/Vol] 14 mg/dL Normal 5 - 21 mg/dL [facility] Remisol Urea nitrogen/Creatinine [Mass ratio] 20 mg/mg Normal 10 - 20 [facility] Remisol HEMATOLOGYOrdered By: SYSTEM SYSTEM on 01-30-2023 Basophils/100 WBC (Bld) 0.5 % Normal 0.0 - 2.0 % [facility] HemeAutoSS Basophils/Leukocytes Auto (Bld) [Pure # fraction] 0.0 E9/L Normal 0.0 - 0.2 E9/L [facility]Auto[facility] Eosinophils/100 WBC (Bld) 1.0 % Normal 0.0 - 8.0 % [facility]eAutoSS Eosinophils/Leukocyte s Auto (Bld) [Pure # fraction] 0.1 E9/L Normal 0.0 - 0.5 E9/L [facility] Lymphocytes/100 WBC (Bld) 22.3 % Normal 14.0 - 50.0 % [facility]eAutoSS Lymphocytes/Leukocyte s Auto (Bld) [Pure # fraction] 1.9 E9/L Normal 1.0 - 4.0 E9/L [facility] Monocytes/100 WBC (Bld) 5.5 % Normal 4.0 - 14.0 % [facility]eAutoSS Monocytes/Leukocytes Auto (Bld) [Pure # fraction] 0.5 E9/L Normal 0.2 - 1.0 E9/L [facility] Neutrophils/100 WBC (Bld) 70.7 % Normal 36.0 - 75.0 % [facility] Neutrophils/Leukocyte s Auto (Bld) [Pure # fraction] 6.1 E9/L Normal 2.0 - 7.5 E9/L [facility] HEMATOLOGYOrdered By: Maria Alejandra Fitch on 01-30-2023 Erythrocyte distribution width (RBC) [Ratio] 13.6 % Normal 10.9 - 14.2 % [facility] Hematocrit (Bld) [Volume fraction] 41.3 % Normal 34.0 - 46.0 % [facility] HemeAutoS S Hemoglobin (Bld) [Mass/Vol] 13.9 g/dL Normal 12.0 - 16.0 gm/dL [facility] HemeAutoSS MCH (RBC) [Entitic mass] 29.2 pg Normal 27.0 - 34.0 pg [facility] HemeAutoSS MCHC (RBC) [Mass/Vol] 33.6 g/dL Normal 31.4 - 36.0 gm/dL [facility] HemeAutoSS MCV (RBC) [Entitic vol] 86.8 fL Normal 80.0 - 100.0 fL [facility] HemeAutoSS Platelet mean volume (Bld) [Entitic vol] 9.7 fL Normal 6.4 - 10.8 fL [facility] HemeAut oSS Platelets (Bld) [#/Vol] 257.0 E9/L Normal 150.0 - 500.0 E9/L [facility] HemeAutoSS RBC (Bld) [#/Vol] 4.8 E12/L Normal 4.3 - 5.9 E12/L [facility] HemeAutoSS WBC corrected for nucl RBC Auto (Bld) [#/Vol] 8.6 E9/L Normal 4.0 - 11.0 E9/L [facility] HemeAutoSS CULTURE WOUNDon 11-10-2022 CULTURE WOUND Culture Observations: IN PROCESS. Isolate 1 Streptococcus constellatus Moderate growth of Normal [facility] Comment on above: Performed By: #### W [id number] #### [facility] [address] [place] [address] Dr. Dalton Puckett PAP ACOG PANEL 2: to on 03-13-2022 . . Normal [facility] Comment on above: Performed By: #### [id number] #### [facility] [address] [address] [address] Dalton Puckett Age Gdln ACOG Testing Normal [facility] Comment on above: Performed By: #### [id number] #### [facility] [address] [place] [address] Dr. Dalton Puckett DIAGNOSIS: Comment Normal [facility] Comment on above: Result Comment: NEGA TIVE FOR INTRAEPITHELIAL LESION OR MALIGNANCY. Performed By: #### [id number] #### [facility] [address] [place] [address] Dr. Dalton Puckett Methodology: Comment Normal [facility] Comment on above: Result Comment: This liquid based ThinPrep(R) pap test was screened with the use of an image guided system. Performed By: #### [id number] #### [facility] [address] [place] [address] Dr. Dalton Puckett Note: Comment Normal [facility] Comment on above: Result Comment: The Pap smear is a screening test designed to aid in the detection of premalignant and malignant conditions of the uterine cervix. It is not a diagnostic procedure and should not be used as the sole means of detecting cervical cancer. Both false-positive and false-negative reports do occur. . Performed By: #### [id number] #### [facility] [address] [place] [address] Dr. Dalton Puckett Performed by: Comment Normal [facility] Comment on above: Result Comment: Capri Peterson, Tour Consultant (ASCP) Performed By: #### [id number] #### [facility] [address] [place] [address] Dr. Dalton Puckett Reflex Criteria: Comment Normal [facility] Comment on above: Result Comment: The HPV DNA reflex criteria were not met with this specimen result therefore, no HPV testing was performed. . Performed By: #### [id number] #### [facility] [address] [place] [address] Dr. Dalton Puckett Specimen adequacy: Comment Normal [facility] Comment on above: Result Comment: Sati sfactory for evaluation. Endocervical and/or squamous metaplastic cells (endocervical component) are present. Performed By: #### [id number] #### [facility] [address] [place] [address] Dr. Dalton Puckett COVID Quick Testingon 2021 Result neagtive [employer] Other Quick Fluon 09-23-2021 FLUAV Ab CF (S) [Titer] Negative [employer] Other FLUBV Ab CF (S) [Titer] Negative [employer] Other Vital Signs Date Time Vital Sign Value Performing Clinician Facility 07-16-2023 09:27-0500 Body height 167.6 cm Layo Gautam DPM Work Phone: [facility] 07-16-2023 09:27-0500 Body mass index (BMI) [Ratio] 23.4 kg/m2 Layo Gautam DPM Work Phone: [facility] 07-16-2023 09:27-0500 Body weight 65.77 kg Layo Lotus DPM Work Phone: [facility] 05-11-2023 10:20-0500 Body height 170.18 cm Barbra Davis Other [employer] Other 05-11-2023 10:20-0500 Body mass index (BMI) [Ratio] 22.39 kg/m2 Barbra Davis Other [employer] Other 05-11-2023 10:20-0500 Body temperature 99.1 [degF] Barbra Davis Other [facility] Other 05-11-2023 10:20-0500 Body weight 64.86 kg Barbra Davis Other [employer] Other 05-11-2023 10:20-0500 Respiratory rate 19 /min Barbra Davis Other [employer] Other 05-11-2023 10:20-0500 SaO2% (BldA) [Mass fraction] 99 % Barbra Davis Other [employer] Other 03-21-2023 12:15-0400 Body height 170.18 cm Juliette Alma Other [employer] Other 03-21-2023 12:15-0400 Body mass index (BMI) [Ratio] 23.46 kg/m2 Juliette Marquez Other [employer] Other 03-21-2023 12:15-0400 Body temperature 99 [degF] Juliettemaricruz Marquez Other [employer] Other 03-21-2023 12:15-0400 Body weight 67.95 kg Juliette Alma Other [facility] [facility] Other 03-21-2023 12:15-0400 Respiratory rate 18 /min Juliettemaricruz Marquez Other [employer] Other 03-21-2023 12:15-0400 SaO2% (BldA) [Mass fraction] 99 % Juliette Alma Other [employer] Other 02-25-2023 14:27-0400 Blood Pressure Location Sher AdvanovaL [employer] [facility] 02-25-2023 14:27-0400 Body temperature 60.8 [degF] Sher RIVASL [facility] [place] 02-25-2023 14:27-0400 Diastolic blood pressure 78 mm[Hg] Sher RIVASL [facility] [place] 02-25-2023 14:27-0400 Heart rate 70 /min Sher AdvanovaL [employer] [facility] [place] 02-25-2023 14:27-0400 Respiratory rate 16 /min Sher NILL [facility] [place] 02-25-2023 14:27-0400 Systolic blood pressure 122 mm[Hg] Sher FINE [facility] [place] 09-28-2021 11:00-0400 Body height 170.18 cm Barbra Susan Other [employer] Other 09-28-2021 11:00-0400 Body mass index (BMI) [Ratio] 22.71 kg/m2 Barbra Torresmond Other [employer] Other 09-28-2021 11:00-0400 Body temperature 96.8 [degF] Barbra Torresmond Other [employer] Other 09-28-2021 11:00-0400 Body weight 65.77 kg Barbra Susan Other [employer] Other 09-28-2021 11:00-0400 SaO2% (BldA) [Mass fraction] 98 % Barbra Davis Other [employer] Other 09-23-2021 13:50-0400 Body height 170.18 cm Jaye Lyn Other [employer] Other 09-23-2021 13:50-0400 Body mass index (BMI) [Ratio] 22.71 kg/m2 Jaye Lyn Other [employer] Other 09-23-2021 13:50-0400 Body temperature 101.3 [degF] Jaye Lyn Other [employer] Other 09-23-2021 13:50-0400 Body weight 65.77 kg Jaye Lyn Other [facility] Other 09-23-2021 13:50-0400 SaO2% (BldA) [Mass fraction] 98 % Jaye Lyn Other [employer] Other Encounters Encounter Date Encounter Type Care Provider Facility Start: 04-11-2024 End: 04-11-2024 ambulatory Dana L Debora Facility:[facility] [place] Start: 11-23-2023 End: 11-23-2023 ambulatory Dana L Debora Facility:[facility] [place] Start: 10-21-2023 End: 10-21-2023 ambulatory LAYO GAUTAM Not Available Start: 07-16-2023 End: 07-16-2023 ambulatory LAYO GAUTAM Not Available Start: 07-16-2023 End: 07-16-2023 Office outpatient visit 15 minutes Layo Gautam DPM Work Phone: [facility] Comment on above: Onychocryptosis (Miguelina sirena Dx); Paronychia of great toe of right foot; Pain of right great toe; Difficulty walking Start: 06-23-2023 End: 06-23-2023 ambulatory LAYO GAUTAM Not Available Start: 06-11-2023 End: 06-11-2023 ambulatory YESICA AJNNA Not Available Start: 06-10-2023 End: 06-10-2023 ambulatory Dana L Debora Facility:[facility] [place] Start: 05-19-2023 End: 05-19-2023 ambulatory Dana L Debora Facility:[facility] [place] Start: 05-18-2023 End: 05-18-2023 ambulatory Dana L Debora [facility] [place] Start: 05-12-2023 End: 05-12-2023 ambulatory Barbra Davis Other [employer] Other Start: 05-12-2023 Telephone encounter Barbra MACIAS [facility] Start: 05-11-2023 Office outpatient vi sit 15 minutes Barbra Davis [facility] Start: 05-11-2023 End: 05-11-2023 ambulatory Barbra Davis [facility] Other Start: 05-05-2023 End: 05-05-2023 ambulatory MD Aashish Bazan Facility[facility] Start: 04-15-2023 ambulatory Sher Allen ROBAni Facility : [facility] Start: 03-21-2023 End: 03-21-2023 ambulatory Juliette Marquez Other [facility] Other Start: 03-21-2023 Office outpatient vi sit 15 minutes Juliette Marquez [facility] Start: 03-18-2023 End: 03-18-2023 Lab Drop off Daan L Debora [facility] Start: 02-25-2023 End: 02-25-2023 Patient encounter procedure Sher Allen BABATUNDE [facility] Start: 01-30-2023 End: 01-30-2023 Lab Drop off Dana L Debora [facility] Start: 11-10-2022 End: 11-10-2022 ambulatory KETTY SARATH . Facility: Start: 03-05-2022 End: 03-05-[address] TERESITA MCNULTY . Facility: Start: 09-28-2021 End: 09-28-2021 ambulatory Barbra Davis Other [facility] [employer] [facility] Other Start: 09-28-2021 Office outpatient vi sit 15 minutes Barbra Davis [facility] Start: 09-23-2021 End: 09-23-2021 ambulatory Jaye Lyn Other [employer] Other Start: 09-23-2021 Office outpatient vi sit 25 minutes Jaye Riki [facility] Procedures Date Procedure Procedure Detail Performing Clinician Start: 11-10-2022 Pilonidal cyst (morphologic abnormality) Dana Cazares Reattachment of finger Ludwig FINE Plan of Treatment Date Care Activity Detail Author Start: 04-19-2024 End: 04-19-2024 Patient encounter procedure 04/19/2024 9:00 AM EST Office Visit [facility] [address] [place] [address] Yesica Saldivar PA [address] [place] [address] [facility] Start: 10-21-2023 End: 10-21-2023 Patient encounter procedure 10/21/2023 3:15 PM EDT Office Visit [facility] [address] [place] [id number] Layo Gautam, DPM [address] [place] [address] [facility] Payers Date Payer Category Payer [facility] [id number] 2023 Unknown BCBS BCBS xxxxxx [id number] 2023-Present [phone] [address] [place] [address] [id number] 1996 Unknown [id number] 2.16.840.1.365375.3.579.2. 593 1996 Unknown [id number] 2.16.840.1.815407.3.579.2. 593 1996 Unknown [id number] 2.16.840.1.450166.3.579.2. 1259 1996 Unknown [id number] 2.16.840.1.511740.3.579.2. 1259 1996 Unknown [id number] 2.16.840.1.929149.3.579.2. 1259 1996 Unknown [id number] 2.16.840.1.146768.3.579.2. 1259 1996 Unknown [id number] 2.16.840.1.008502.3.579.2. 727 1996 Unknown [id number] 2.16.840.1.276625.3.579.2. 727 1996 Unknown [id number] 2.16.840.1.633064.3.579.2. 727 1996 Unknown [id number] 2.16.840.1.604558.3.579.2. 727 1996 Unknown [id number] 2.16.840.1.221524.3.579.2. 727 1996 Unknown [id number] 2.16.840.1.164346.3.579.2. 727 1996 Unknown [id number] 2.16.840.1.319254.3.579.2. 7 1996 Unknown [id number] 2.16.840.1.319848.3.579.2. 727 1959 [facility] [id number] 1959 Self-pay Unknown [id number] [id number]. 531 Social History Date Type Detail Facility Unknown if ever smoked [employer] Other Start: 06-18-2023 End: 07-16-2023 Sex Assigned At [facility] Start: 01-30-2023 End: 03-10-2023 Tobacco smoking status Never smoked tobacco (finding) [facility] Tobacco smoking status Never [facility] Start: 03-10-2023 Tobacco use and exposure Smokeless tobacco non-user [facility] Start: 07-16-2023 Alcohol intake Current drinke r of alcohol (finding) [facility] Start: 06-18-2023 End: 07-16-2023 History of Social function [facility] How often to you hav e a drink containing alcohol? Monthly or less [facility] How many standard drinks containing alcohol do you have on a typical day? 1 or 2 [facility] How often do you hav e 6 or more drinks on 1 occasion? Monthly [facility] Start: 03-09-2023 Alcohol Comment 1-2 drinks les s than monthly in the past year [facility] Start: 1995 Sex Assigned At Not on file [facility] Functional Status Date Assessment Result Facility 02-25-2023 Functional Status N/A [facility] Clinical Notes 09-23-2021 to 07-16-2023 Layo Gautam, DP - 07/16/2023 9:30 AM ESTPatient Instructions Note Date & Type Note Facility 07-16-2023 History of Presen t illness Narrative Images from the original note were not included. Subjective Patient ID: Jewell Richardson is a 27 y.o. female who presents for Ingrown Toenail (Established pt presents today for possible ingrown nail, RGT. Started to become bothersome about a week ago. Pt states she feels pressure on nail when wearing work shoes. Pt has been soaking in epsom salts. ). HPI Chief complaint: Painful, locally inflamed ingrown toenail medial margin of the right great toe of about 1-2 weeks' duration. Patient denies injury or trauma. Relates no recent change in activity or shoe gear; however steel toe boots, required for her work activity, aggravate the condition. Denies bleeding or drainage. Attempts at self care have been ineffective. Denies streaking or constitutional symptoms. Patient completed 90 day course of oral terbinafine therapy in June 2023; without adverse effects. She does note favorable improvement in the overall appearance, clarity and texture of the involved toenails. Medications Current Outpatient Medications: ibuprofen 800 MG tablet, Take 800 mg by mouth every 8 (eight) hours. PRN, Disp: , Rfl: levonorgestrel-ethinyl estradiol (Seasonale) 0.15-0.03 MG tablet, Take 1 tablet by mouth in the morning., Disp: , Rfl: terbinafine (LamISIL) 250 MG tablet, Take 250 mg by mouth in the morning., Disp: , Rfl: Allergies Patient has no known allergies. Past Surgical History No past surgical history on file. Family History Family History Problem Relation Name Age of Onset Diabetes Paternal Grandfather Cancer Other Objective General Examination: GENERAL EXAMINATIONalert and oriented. Pleasant disposition. Vascular: DORSALIS PEDIS PULSE:2/4, bilaterally. POSTERIOR TIBIAL PULSE:2/4, bilaterally. TEMPERATURE GRADIENT:warm to warm. EDEMA:none. CAPILLARY FILLING TIME(sec):capillary fill intact bilateral digits less than 3 secs. Neurologic: SHARP SENSATION:tactile and light touch sensation intact. Dermatologic: SKIN FINDINGS:skin turgor is good. HYPERTROPHIC LESION:no forefoot or digital discrete keratotic lesions are noted. NAIL PATHOLOGY: Right great toe: maintains effective clearing of the nail plate. The medial margin is incurvated/cryptotic, keratotic, locally inflamed and tender, without drainage or abscess formation. There are no clinical signs of cellulitis or streaking.. Left great toe: interval distinct proximal nail plate clearing; with residual DSO deformity. There remains distal subungual and marginal keratotic and mycotic debris. Unremarkable for drainage. MYCOSIS SCALE: total with debris; bilateral great toes at baseline. INTERDIGITAL MACERATION:clean, dry, non-inflamed. Orthopedic: JOINT RANGE OF MOTION:functional ankle, subtalar, midtarsal and MTP joint range of motion. DEFORMITIES:no obvious or distinct forefoot or digital deformities are noted. MUSCLE STRENGTHno focal deficits. 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 Effective nail plate clearing right great toe; responding favorably to oral terbinafine therapy. Onychocryptosis/mild paronychia medial margin of the right great toe. Plan: Notes: review of clinical findings, differential diagnosis, recalcitrant nature of condition left great toe, response to previous therapy, treatment strategy and objectives. Positive dermatophyte identification by history. Right great toe: Aseptic technique: Debridement and curettage of the offending cryptotic medial margin; providing effective pressure and symptom relief. Instructions on cuticle massage. Continue topical care measures: Use of vinegar and/or Listerine as directed. Hygiene and skin care measures discussed. Procedure: right great toe: Debridement and curettage as described. This note was created with the assistance of a speech recognition program. While intending to generate a timely document that accurately reflects the content of the visit, no guarantee can be provided that every grammatical or spelling mistake has been or will be identified or corrected. Thank you for your understanding. Layo Gautam DPM documented in this encounter [facility] 07-16-2023 Instructions Layo Gautam DPM - 07/16/2023 9:30 AM EST As noted documented in this encounter [facility] 05-11-2023 Evaluation note Encounter Date Diagnosis Assessment Notes Apr, Dysuria (ICD-10 - R30.0) Drink plenty fluids, get plenty of rest. You may take Tylenol as needed for pain. Take cranberry pills as needed for dysuria. Your urine will be sent for culture and we will call you with the results if we need to place you on an antibiotic. No antibiotic is needed at this time. Follow-up with your family physician if no improvement in 2 to 3 days. Patient recently finished a course of doxycycline for a UTI that was diagnosed approximately 5 days ago. She states she feels somewhat better. Denies nausea vomiting chills or fevers. Denies any headache. [employer] [employer] Other 10-07-2023 Evaluation note* Encounter Date Diagnosis Assessment Notes Treatment Notes Treatment Clinical Notes Mar, Strain of right trapezius muscle, initial encounter (ICD-10 - S46.811A) Discussed with patient exam is consistent with muscular strain to area. Continue heat, gentle stretching, topical rubs such as Biofreeze. Will Rx as needed cyclobenzaprine. Discussed may cause drowsiness, caution advised. Continue ibuprofen 800 3 times daily, Tylenol in between as needed. Avoid strenuous activity until symptoms have improved. Follow-up with PCP if not gradually improving over the next week. Patient verbalized understanding of treatment plan. [employer] Other 10-04-2023 Evaluation + Plan note Diagnostic Tests Pending * PAP IG w/rflx HPV 03/18/23 [facility]04-16-2022 Evaluation note* Encounter Date Diagnosis Assessment Notes Treatment Notes Treatment Clinical Notes Sep, Acute sinusitis, recurrence not specified, unspecified location (ICD-10 - J01.90) Drink plenty fluids, get plenty of rest. Take the amoxicillin with clavulanate as prescribed until gone. Take the prednisone as prescribed until gone. Use the Flonase inhaler as prescribed until your symptoms improve. You may continue your xhvq-zro-buritns medications as instructed. Follow-up with your family physician if no improvement in 2 to 3 days. [facility] Other 04-11-2022 Evaluation note* Encounter Date Diagnosis Assessment Notes Treatment Notes Treatment Clinical Notes Sep, Fever (ICD-10 - R50.9) Sep, Viral URI (ICD-10 - J06.9) Symptoms appear viral today. Bacteria infections take several days to weeks of symptoms to develop. Use saline nasal spray before prescription one and you have better results. Recommend OTC medications such as Mucinex DM, Delsym, Cepocal Lozenges Continue tylenol/ibuprofen for general discomfort. Encourage fluids. Symptoms should improve within the next 10-14 days. If no improvement of symptoms in 14 days call primary care provider to discuss antibiotic therapy [employer] Other Evaluation + Plan note No data available for this section [facility] noteNo [facility] Other Evaluation note* Diagnosis Onychocryptosis- Primary Ingrowing nail Paronychia of great toe of right foot Pain of right great toe Difficulty walking Difficulty in walking [facility] - Reported* Type Description Date Medical History acne Medical History asthma-not confirmed [facility] Other Hospital Discharge instructions No data available for this section [facility] No data available for this section [facility] Summary Purpose Family History No Family History Records Found No data available for this section No Family History Records FoundNo Family History Records FoundNo Family History Records Found Advance Directives No Advanced Directives Records FoundNo Advanced Directives Records FoundNo Advanced Directives Records FoundNo Advanced Directives Records Found Additional Source Comments REASON FOR VISIT (unrecogniz ed section and content) Reason Comments Ingrown Toenail Established pt prese nts today for possible ingrown nail, RGT. Started to become bothersome about a week ago. Pt states she feels pressure on nail when wearing work shoes. Pt has been soaking in epsom salts. INFORMATION SOURCE (unrecogn ized section and content) DATE CREATED AUTHOR 11/21/2022 [facility] DATE CREATED AUTHOR AUTHOR'S ORGANIZ ATION 05/22/2023 [facility] DATE CREATED AUTHOR AUTHOR'S ORGANIZ ATION 10/23/2023 [facility] EPIC DATE CREATED AUTHOR AUTHOR'S ORGANIZ ATION 04/12/2024 [facility] Patient Care team informatio n (unrecognized section and content) Sheet Finisher Relationship Specialty Start Date End Date Lindy Mcgregor MD [address] [place] [address] PCP - General Family Medicine 03/09/23 FOR RECORDS PERTAINING TO PATIENTS WHO ARE OR HAVE BEEN ENROLLED IN A CHEMICAL DEPENDENCY/SUBSTANCEABUSE PROGRAM, SOME INFORMATION MAY BE OMITTED. This clinical summary was aggregated from multiple sources. Caution should be exercised in using it in the provision of clinical care. This summary normalizes information from multiple sources, and as a consequence, information in this document may materially change the coding, format and clinical context of patient data. In addition, data may be omitted in some cases. CLINICAL DECISIONS SHOULD BE BASED ON THE PRIMARY CLINICAL RECORDS. [facility]. provides no warranty or guarantee of the accuracy or completeness of information in this document.
[2024-04-23 14:09] LABS: Age Gdln ACOG Testing Note (.); IGP, rfx Aptima HPV ASCU Note (.)
== END 2024-04-19 20:46 | disposition home or self-care (01) ==
LOC: LAB 20:45
PROVIDERS: PCP Nurse Practitioner; Visit Provider Physician Assistant
DX: Z01.419 Encounter for gynecological examination (general) (routine) without abnormal findings (principal)
CPT/HCPCS: 88175

== ENCOUNTER 2024-04-20 15:04 | Outpatient (OUT) | payer BC, SELFPAY ==
--- OUTSIDE RECORDS SUMMARY | 2024-04-20 15:16 | XMS_ITS | CCD ---
Author Organization [facility] Care Team Providers Care Rug Renovator Name Role Phone Barbra Davis Unavailable Jaye Lyn Unavailable DIAB ., KETTY Attending Unavailable DIAB ., KETTY Consulting Unavailable DIAB . KETTY Admitting Unavailable MCGREGOR ., DR LINDY Renteria Primary Care Unavailable CAROL ., DR LO Attending Unavailable CAROL ., DR LO Consulting Unavailable CAROL ., DR LO Admitting Unavailable MCGREGOR ., DR LINDY Renteria Primary Care Unavailable Dana Cazares Primary Care Physician [phone] Juliette Marquez Unavailable Barbra Davis Attending Unavailable Barbra Davis Admitting Unavailable Lindy Mcgregor MD Primary Care Provider Dana Cazares Attending Unavailable DeboraDana burgos Attending Unavailable MD Aashish Bazan Attending Unavailable DeboraDana Attending Unavailable Sher FINE Attending Unavailable DeboraDana burgos Attending Unavailable DeboraDana burgos Attending Unavailable YESICA SALDIVAR Attending Unavailable LAYO GAUTAM Attending Unavailable LAYO GAUTAM Attending Unavailable LAYO GAUTAM Attending Unavailable LAYO GAUTAM Attending Unavailable YESICA SALDIVAR Attending Unavailable Medications Current Medications Medication Drug Class(es) Dates Sig (Normalized) Sig (Original) amoxicillin 875 mg / clavulanate 125 mg oral tablet (1 source) Penicillin-class Antibacterial Start: 09-28-2021 take 1 tablet by mouth every twelve hours Amoxicillin-Pot Clavulanate 875-125 MG 1 tablet Orally every 12 hrs for 10 day(s) Sep, Active Ethinyl Estradiol / Levonorgestrel (4 sources) Progestin, Estrogen, Progestin-containin g Intrauterine Device Start: 03-25-2023 levonorgestrel-et hinyl estradiol (Seasonale) 0.15-0.03 MG tablet Take 1 tablet by mouth in the morning. 03/25/2023 Active Start: 03-25-2023 levonorgestrel -ethinyl estradiol (Seasonale) 0.15-0.03 MG tablet Take 1 tablet by mouth in the morning. 0 03/25/2023 Active fluticasone propionate 0.05 mg/actuat metered dose nasal spray (1 source) Corticosteroid Start: 09-28-2021 take 2 spray(s) nasal route once daily Fluticasone Propionate 50 MCG/ACT 2 sprays Nasally Once a day for 14 day(s) Sep, Active ibuprofen 800 mg oral tablet (11 sources) Nonsteroidal Anti-inflammatory Drug Start: 01-30-2023 take 1 tablet by mouth every eight hours ibuprofen 800 MG tablet Take 800 mg by mouth every 8 (eight) hours. PRN 01/30/2023 Active predniSONE 20 mg oral tablet (1 source) Start: 09-28-2021 take 1 tablet by mouth every twelve hours predniSONE 20 MG 1 tablet Orally bid for 5 day(s) Sep, Active terbinafine 250 mg oral tablet (8 sources) Allylamine Antifungal End: 04-19-2024 take 1 tablet by mouth in the morning terbinafine (LamISIL) 250 MG tablet Take 250 mg by mouth in the morning. 04/19/2024 Discontinued LamISIL TABLET F OR TOE NAIL FUNGUS [...] bronchitis] Episodic Genitourinary symptoms and ill-defined conditions (5 sources) Dysuria; Translations: [Dysuria] Onset: 05-11-2023 Episodic [...] day(s), # 6 tab(s), Refills(s) 0, Pharmacy: [facility]/pharmacy #[id number], 167.6, cm, 04/11/24 14:44:00 EDT, Height/Length Dosing, 72.5, kg, 04/11/24 14:44:00 EDT, Weight Dosing 2. BMI 25.0-25.9,adult (Z68.25: Body mass index [BMI] 25.0-25.9, adult) BMI education given Ordered: azithromycin, = 1 packet(s), Oral, As Directed, as directed on package labeling, X 5 day(s), # 6 tab(s), Refills(s) 0, Pharmacy: [facility] #[id number], 167.6, cm, 04/11/24 14:44:00 EDT, Height/Length Dosing, 72.5, kg, 04/11/24 14:44:00 EDT, Weight Dosing 3. Non-smoker (Z78.9: Other specified health status) continue not smoking Ordered: azithromycin, = 1 packet(s), Oral, As Directed, as directed on package labeling, X 5 day(s), # 6 tab(s), Refills(s) 0, Pharmacy: [facility]/pharmacy #[id number], 167.6, cm, 04/11/24 14:44:00 EDT, Height/Length Dosing, 72.5, kg, 04/11/24 14:44:00 EDT, Weight Dosing 4. Overweight (BMI 25.0-29.9) (E66.3: Overweight) see above Ordered: azithromycin, = 1 packet(s), Oral, As Directed, as directed on package labeling, X 5 day(s), # 6 tab(s), Refills(s) 0, Pharmacy: [facility]/pharmacy #[id number], 167.6, cm, 04/11/24 14:44:00 EDT, Height/Length [...] - Not Given Postpone due to refusal Normal [facility] Comment on above: Result Comment: Elec tronically Signed By: Dana Pastor\.br\Date and Time Signed: 04/11/24 14:57 EDT Ambulatory Visit Summaryon 1 08-11-2022 Ambulatory Visit Summary JEWELL RICHARDSON :1995 Visit Date:06/10/2023 Ambulatory Visit Instructions Your Diagnosis PCOS (polycystic ovarian syndrome) BMI 23.0-23.9, adult Non-smoker Your Care Team Attending Physician - Dnaa Pastor Primary Care Physician - Dana Pastor [...] Follow these instructions at home: ? Take qvdi-vuv-wyllljv and prescription medicines only as told by [...] Sum (more content not included)... Normal [facility] Family Medicine Office/Clini c Noteon 06-10-2023 Family Medicine [...] 4, # 2 tab(s), Refills(s) 0, [id number] 167.6, cm, 05/19/23 8:23:00 EST, Height/Length Dosing, 68.2, kg, 05/19/23 8:23:00 EST, Weight Dosing metronidazole, 500 mg = 1 tab(s), Oral, q12hr, # 14 tab(s), Refills(s) 0, [id number] 167.6, cm, 05/19/23 8:23:00 EST, Height/Length Dosing, 68.2, kg, 05/19/23 8:23:00 EST, Weight Dosing Follow-up No qualifying data available Patient Education Polycystic Ovary Syndrome Ovarian Cyst, Biqr-ch-Qlrh Diet for Polycystic Ovary Syndrome Problem List/Past [...] - Not Given Postpone due to refusal [facility] Comment on above: Result Comment: Elec tronically Signed By: Dana Pastor\.br\Date and Time Signed: 06/10/23 08:52 EST Patient [...] Follow these instructions at home: ? Take xpda-udz-jqbyddf and prescription medicines only as told by [...] provider. Document Revised: 11/08/2020 Document Reviewed: 11/08/2020 [employer] Patient Education ? 2022 [employer]. Ovarian Cyst An ovarian cyst is a [...] between th (more content not included)... Normal [facility] RAD - Ultrasound Reporton RAD - Ultrasound Report [id number] #1.00TIFF Giuseppe [facility] Ambulatory Visit Summaryon 1 07-20-2022 Ambulatory Visit Summary JEWELL RICHARDSON :1995 Visit Date:05/19/2023 Ambulatory Visit Instructions Your Diagnosis Pelvic pain Bacterial vaginitis Vaginal sasha Dysuria Other specified bacterial agents as the cause of diseases classified elsewhere Tests Performed Urnls Dip Stick Auto w/o Microscopy POC 22569 Your Care Team Attending Physician - Dana [...] 1 tab on day 4 Pickup at [facility]/pharmacy #[id number] Unchanged ethinyl estradiol-levonorges trel (Jolessa oral tablet) 1 Tablets By Mouth Every day Unchanged ibuprofen (ibuprofen 800 mg Tab) 1 Tablets By Mouth Every 8 hours Unchanged metronidazole (MetroNIDAZOLE 500 mg Tab) 1 Tablets By Mouth Every 12 hours Pickup at [facility]/pharmacy #[id number] Pharmacy Information [facility]/pharmacy #[id number]: [address], [place] [phone] Test Results Urnls Dip Stick Auto w/o Microscopy POC 57090 (05/19/2023) Bilirubin Urine Dipstick - Negative Blood Urine Dipstick - Negative Glucose Urine Dipstick - Negative Ketones Urine Dipstick - 1+ 15 mg/dl Leukocytes Urine Dipstick - Negative Nitrite Urine Dipstick - Negative Protein Urine Dipstick - Negative Specific [place] Urine Dipstick - 1.010 Urine Appearance Urine [...] you for choosing us for your care. Normal [facility] Family Medicine Office/Clini c Noteon 05-19-2023 Family Medicine [...] pelvic pain will order pelvic u/s for [facility] order provided and faxed. all questions answered. RTC as needed 2. Bacterial vaginitis (N76.0: Acute vaginitis) pt c/o vaginal irritation and fishy odor 3. Vaginal sasha (B37.31: Acute candidiasis of vulva and vagina) vaginal opening red and white discharge noted Dysuria (R30.0: Dysuria) u/a negative in office today Ordered: fluconazole, 150 mg = 1 tab(s), Oral, Once, # 1 tab(s), Refills(s) 0, [id number] 167.6, cm, 05/05/23 15:42:00 EST, Height/Length Dosing, 69.3, kg, 05/05/23 15:42:00 EST, Weight Dosing Urnls Dip Stick Auto w/o Microscopy POC 24142 Urnls Dip Stick Auto w/o Microscopy POC 67898 Other specified bacterial agents as the cause of diseases classified elsewhere (B96.89: Other specified bacterial agents as the cause of diseases classified elsewhere) flagyl sent to pharmacy Orders: fluconazole, 150 mg = 1 tab(s), Oral, Once, take one tab on day 1 and 1 tab on day 4, # 2 tab(s), Refills(s) 0, [id number] 167.6, cm, 05/19/23 8:23:00 EST, Height/Length Dosing, 68.2, kg, 05/19/23 8:23:00 EST, Weight Dosing metronidazole, 500 mg = 1 tab(s), Oral, q12hr, # 14 tab(s), Refills(s) 0, Pharmacy: [facility]/pharmacy #[id number], 167.6, cm, 05/19/23 8:23:00 EST, Height/Length [...] Protein Urine Dipstick: Negative (05/19/23 08:23:00) Specific [place] Urine Dipstick: 1.010 (05/19/23 08:23:00) Urine Appearance Urine Dipstick: Clear (05/19/23 08:23:00) Urine Color Urine Dipstick: Light yellow (05/19/23 08:23:00) Urobilinogen Urine Dipstick: Normal 0.2-1 EU/dl (05/19/23 08:23:00) pH Urine Dipstick: 5.5 (05/19/23 08:23:00) Normal [facility] Comment on above: Result Comment: Elec tronically Signed By: Dana Pastor\.br\Date and Time Signed: 05/19/23 08:49 EST Physician Orderon 05-19-2023 Physician Order [id number] #1.00TIFF [facility] Urinalysis - AUTOMATEDon Appearance (U) cloudy [employer] Other Bilirubin Ql (U) Negative [employer] Other Color (U) light yellow [employer] Other Glucose Ql (U) Negative [employer] Other Hemoglobin Ql (U) trace [employer] Other Ketones Ql (U) Negative [employer] Other Leukocyte esterase Test strip Ql (U) small [employer] Other Nitrite Ql (U) neative [employer] Other pH (U) 6.5 [pH] [employer] Other Protein Ql (U) Negative [employer] Other Specific gravity (U) [Rel density] 1.010 [employer] Other Urobilinogen (U) [Mass/Vol] 0.2 mg/dL [employer] Other Urinalysis - AUTOMATED [employer] Other Urine Cultureon 05-11-2023 Bacteria identified Cx Nom (U) 50,000 colonies/ml mixed bacterial skin contaminants 2 Days PERFORMED BY: CHRISTINA [place] [id number] PATHOLOGIST [employer] INTERN BRADFORD ANNE M.D. [facility] Comment on above: Performed By: #### C UU #### [address] Bacteria identified Cx Nom (U) [employer] Other Ambulatory Visit Summaryon 07-05-2022 Ambulatory Visit Summary JEWELL RICHARDSON :1995 Visit Date:05/05/2023 Ambulatory Visit Instructions Your Diagnosis BMI 24.0-24.9, adult Nonsmoker Dysuria Urinary frequency Tests Performed Urnls Dip Stick Auto w/o Microscopy POC 45149 Your Care Team Attending Physician - Beni LORENZANA, Aashish Pollard Primary Care Physician - Dana Pastor This [...] Urnls Dip Stick Auto w/o Microscopy POC 77234 (05/05/2023) Bilirubin Urine Dipstick - Negative Blood Urine Dipstick - Trace-intact Glucose Urine Dipstick - Negative Ketones Urine Dipstick - Negative Leukocytes Urine Dipstick - 1+ Small Nitrite Urine Dipstick - Negative Protein Urine Dipstick - Negative Specific [place] Urine Dipstick - 1.020 Urine Appearance Urine [...] you for choosing us for your care. Normal [facility] Ambulatory Visit Summary JEWELL RICHARDSON :1995 Visit Date:05/05/2023 Ambulatory Visit Instructions Your Diagnosis BMI 24.0-24.9, adult Nonsmoker Dysuria Urinary frequency Tests Performed Urnls Dip Stick Auto w/o Microscopy POC 03461 Your Care Team Attending Physician - Beni LORENZANA, Aashish Pollard Primary Care Physician - Dana Pastor This [...] Urnls Dip Stick Auto w/o Microscopy POC 01352 (05/05/2023) Bilirubin Urine Dipstick - Negative Blood Urine Dipstick - Trace-intact Glucose Urine Dipstick - Negative Ketones Urine Dipstick - Negative Leukocytes Urine Dipstick - 1+ Small Nitrite Urine Dipstick - Negative Protein Urine Dipstick - Negative Specific [place] Urine Dipstick - 1.020 Urine Appearance Urine [...] you for choosing us for your care. Normal [facility] Family Medicine Office/Clini c Noteon 05-05-2023 Family [...] day(s), # 10 tab(s), Refills(s) 0, [facility]: [id number], 167.6, cm, 05/05/23 15:42:00 EST, Height/Length Dosing, 69.3, kg, 05/05/23 15:42:00 EST, Weight Dosing fluconazole, 150 mg = 1 tab(s), Oral, Once, # 1 tab(s), Refills(s) 0, Pharmacy: [facility]/pharmacy #[id number], 167.6, cm, 05/05/23 15:42:00 EST, Height/Length Dosing, 69.3, kg, 05/05/23 15:42:00 EST, Weight Dosing Urnls Dip Stick Auto w/o Microscopy POC 91320 2. Urinary frequency (R35.0: Frequency of micturition) - As above Ordered: doxycycline, 100 mg = 1 tab(s), Oral, q12hr, X 5 day(s), # 10 tab(s), Refills(s) 0, Pharmacy: [facility]/pharmacy #[id number], 167.6, cm, 05/05/23 15:42:00 EST, Height/Length Dosing, 69.3, kg, 05/05/23 15:42:00 EST, Weight Dosing fluconazole, 150 mg = 1 tab(s), Oral, Once, # 1 tab(s), Refills(s) 0, [id number] 167.6, cm, 05/05/23 15:42:00 EST, Height/Length Dosing, 69.3, kg, 05/05/23 15:42:00 EST, Weight Dosing Urnls Dip Stick Auto w/o Microscopy POC 43367 3. BMI 24.0-24.9, adult (Z68.24: Body mass index [BMI] 24.0-24.9, adult) - BMI education uploaded Ordered: doxycycline, 100 mg = 1 tab(s), Oral, q12hr, X 5 day(s), # 10 tab(s), Refills(s) 0, [id number], 167.6, cm, 05/05/23 15:42:00 EST, Height/Length Dosing, 69.3, kg, 05/05/23 15:42:00 EST, Weight Dosing fluconazole, 150 mg = 1 tab(s), Oral, Once, # 1 tab(s), Refills(s) 0, Pharmacy: [facility] #[id number], 167.6, cm, 05/05/23 15:42:00 EST, Height/Length Dosing, 69.3, kg, 05/05/23 15:42:00 EST, Weight Dosing 4. Nonsmoker (Z78.9: Other specified health status) - Please continue to not smoke Ordered: doxycycline, 100 mg = 1 tab(s), Oral, q12hr, X 5 day(s), # 10 tab(s), Refills(s) 0, [id number], 167.6, cm, 05/05/23 15:42:00 EST, Height/Length Dosing, 69.3, kg, 05/05/23 15:42:00 EST, Weight Dosing fluconazole, 150 mg = 1 tab(s), Oral, Once, # 1 tab(s), Refills(s) 0, [id number], 167.6, cm, 05/05/23 15:42:00 EST, Height/Length [...] Protein Urine Dipstick: Negative (05/05/23 15:46:00) Specific [place] Urine Dipstick: 1.020 (05/05/23 15:46:00) Urine Appearance Urine Dipstick: Clear (05/05/23 15:46:00) Urine Color Urine Dipstick: Yellow (05/05/23 15:46:00) Urobilinogen Urine Dipstic (more content not included)... Normal [facility] Comment on above: Result Comment: Elec troelsaally Signed By: Beni LORENZANA, Aashish Robbins\Date and Time Signed: 05/05/23 16:09 EST Patient Educationon 05-05-20 23 Patient Education Nutrition BMI for Adults What [...] numbers. This can be done either in Georgian (U.S[place] or metric measurements. Note that charts and online BMI calculators are available to help you find your BMI quickly and easily without having to do these calculations yourself. To calculate your BMI in Georgian (U.[place] measurements: 1. Measure your weight in [...] for Disease Control and Prevention: www.cdc.gov ? [place] Heart Association: www.heart.org ? National Heart, Lung, and Blood [place]: www.nhlbi.nih.gov Summary ? Body mass index (BMI) is a number that is calculated from a person's weight and height. ? BMI may help estimate how much of a person's weight is composed of fat. BMI can help identify those who may be at higher risk for certain medical problems. ? BMI can be measured using Georgian measurements or metric measurements. ? BMI charts are used to identify whether you are underweight, normal weight, overweight, or obese. This information is not intended to replace advice given to you by your health care provider. Make sure you discuss any questions you have with your health care provider. Document Revised: 02/22/2020 Document Reviewed: 12/30/2019 [employer] Patient Education ? 2022 [employer] Urology Dysuria Dysuria is pain or [...] the tissues (more content not included)... Normal [facility] CHEMISTRYOrdered By: SYSTEM SYSTEM on 01-30-2023 Albumin [Mass/Vol] 4.6 g/dL Normal 3.3 - 5.0 gm/dL [facility] Remisol Albumin/Globulin [Mass ratio] 1.5 {ratio} Normal [...] 122 mL/min/1.73 m2 Normal >=59mL/min/1. 73 m2 [facility] Chem S Globulin (S) [Mass/Vol] 3.0 g/dL [...] 0.5 E9/L Normal 0.2 - 1.0 E9/L [facility] Neutrophils/100 WBC (Bld) 70.7 % Normal 36.0 - 75.0 % [facility] HemeAutoSS Neutrophils/Leukocyte s Auto (Bld) [Pure # fraction] 6.1 E9/L Normal 2.0 - 7.5 E9/L [facility] HEMATOLOGYOrdered By: Maria Alejandra Fitch on 01-30-2023 Erythrocyte distribution width (RBC) [Ratio] 13.6 % Normal 10.9 - 14.2 % [facility] Hematocrit (Bld) [Volume fraction] 41.3 % Normal 34.0 - 46.0 % [facility] S Hemoglobin (Bld) [Mass/Vol] 13.9 g/dL Normal 12.0 - 16.0 gm/dL [facility] MCH (RBC) [Entitic mass] 29.2 pg Normal 27.0 - 34.0 pg [facility] MCHC (RBC) [Mass/Vol] 33.6 g/dL Normal 31.4 - 36.0 gm/dL [facility] MCV (RBC) [Entitic vol] 86.8 fL Normal 80.0 - 100.0 fL [facility] Platelet mean volume (Bld) [Entitic vol] 9.7 fL Normal 6.4 - 10.8 fL [facility]eAut oSS Platelets (Bld) [#/Vol] 257.0 E9/L Normal 150.0 - 500.0 E9/L [facility] RBC (Bld) [#/Vol] 4.8 E12/L Normal 4.3 - 5.9 E12/L [facility] WBC corrected for nucl RBC Auto (Bld) [#/Vol] 8.6 E9/L Normal 4.0 - 11.0 E9/L [facility] CULTURE WOUNDon 11-10-2022 CULTURE WOUND Culture Observations: IN PROCESS. Isolate 1 Streptococcus constellatus Moderate growth of Normal [facility] Comment on above: Performed By: #### W OUNDCX #### [facility] [address] [place] [address] Dr. Dalton Puckett PAP ACOG PANEL 2: to on 03-13-2022 . . Normal [facility] Comment on above: Performed By: #### [id number] #### [facility] [address] [place] [address] Dr. Dalton Puckett Age Gdln ACOG Testing [facility] Comment on above: Performed By: #### [id number] #### [facility] [address] [place] [address] Dr. Dalton Puckett DIAGNOSIS: Comment Normal [facility] Comment on above: Result Comment: NEGA TIVE FOR INTRAEPITHELIAL LESION OR MALIGNANCY. Performed By: #### 4 [id number] #### [facility] [address] [place] [address] Dr. Dalton Puckett Methodology: Comment [facility] Comment on above: Result Comment: This liquid based ThinPrep(R) pap test was screened with the use of an image guided system. Performed By: #### 4 [id number] #### [facility] [address] [place] [address] Dr. Dalton Puckett Note: Comment [facility] Comment on above: Result Comment: The Pap smear is a screening test designed to aid in the detection of premalignant and malignant conditions of the uterine cervix. It is not a diagnostic procedure and should not be used as the sole means of detecting cervical cancer. Both false-positive and false-negative reports do occur. . Performed By: #### 4 [id number] #### [facility] [address] [place] [address] Dr. Dalton Puckett Performed by: Comment Normal [facility] Comment on above: Result Comment: Capri Peterson, Bed Teacher (ASCP) Performed By: #### 4 [id number] #### [facility] [address] [place] [address] Dr. Dalton Puckett Reflex Criteria: Comment [facility] Comment on above: Result Comment: The HPV DNA reflex criteria were not met with this specimen result therefore, no HPV testing was performed. . Performed By: #### [id number] #### [facility] [address] [place] [address] Dr. Dalton Puckett Specimen adequacy: Comment Normal [facility] Comment on above: Result Comment: Sati sfactory for evaluation. Endocervical and/or squamous metaplastic cells (endocervical component) are present. Performed By: #### 4 [id number] #### [facility] [address] [place] [address] Dr. Dalton Puckett COVID Quick Testingon 2021 Result neagtive [employer] Other Quick Fluon 09-23-2021 FLUAV Ab CF (S) [Titer] Negative [employer] Other FLUBV Ab CF (S) [Titer] Negative [employer] Other Vital Signs Date Time Vital Sign Value Performing Clinician Facility 04-19-2024 09:11-0500 Body mass index (BMI) [Ratio] 25.99 kg/m2 Yesica STEWART Work Phone: [facility] 04-19-2024 09:11-0500 Body weight 73.03 kg Yesica STEWART Work Phone: [facility] 04-19-2024 09:11-0500 Diastolic blood pressure 50 mm[Hg] Yesica STEWART Work Phone: [facility] 04-19-2024 09:11-0500 Systolic blood pressure 100 mm[Hg] Yesica STEWART Work Phone: [facility] 07-16-2023 09:27-0500 Body height 167.6 cm Layo Gautam DPM Work Phone: [facility] 07-16-2023 09:27-0500 Body mass index (BMI) [Ratio] 23.4 kg/m2 Layo Gautam DPM Work Phone: [facility] 07-16-2023 09:27-0500 Body weight 65.77 kg Layo Gautam DPM Work Phone: [facility] 05-11-2023 10:20-0500 Body height 170.18 cm Barbra Davis Other [employer] Other 05-11-2023 10:20-0500 Body mass index (BMI) [Ratio] 22.39 kg/m2 Barbra Davis Other [employer] Other 05-11-2023 10:20-0500 Body temperature 99.1 [degF] Barbra Davis Other [employer] Other 05-11-2023 10:20-0500 Body weight 64.86 kg Barbra Davis Other [employer] Other 05-11-2023 10:20-0500 Respiratory rate 19 /min Barbra Davis Other [employer] Other 05-11-2023 10:20-0500 SaO2% (BldA) [Mass fraction] 99 % Barbra Davis Other [employer] Other 03-21-2023 12:15-0400 Body height 170.18 cm Juliette Marquez Other [employer] Other 03-21-2023 12:15-0400 Body mass index (BMI) [Ratio] 23.46 kg/m2 Juliette Marquez Other [employer] Other 03-21-2023 12:15-0400 Body temperature 99 [degF] Juliette Marquez Other [employer] Other 03-21-2023 12:15-0400 Body weight 67.95 kg Juliette Marquez Other [employer] Other 03-21-2023 12:15-0400 Respiratory rate 18 /min Juliette Marquez Other [employer] Other 03-21-2023 12:15-0400 SaO2% (BldA) [Mass fraction] 99 % Juliette Marquez Other [employer] Other 02-25-2023 14:27-0400 Blood Pressure Location [email or web address] [place] 02-25-2023 14:27-0400 Body temperature 60.8 [degF] [facility] [place] 02-25-2023 14:27-0400 Diastolic blood pressure 78 mm[Hg] [facility] [place] 02-25-2023 14:27-0400 Heart rate 70 /min [facility] [place] 02-25-2023 14:27-0400 Respiratory rate 16 /min [facility] [place] 02-25-2023 14:27-0400 Systolic blood pressure 122 mm[Hg] [facility] [place] 09-28-2021 11:00-0400 Body height 170.18 cm Barbra Davis Other [employer] Other 09-28-2021 11:00-0400 Body mass index (BMI) [Ratio] 22.71 kg/m2 Barbra Davis Other [employer] Other 09-28-2021 11:00-0400 Body temperature 96.8 [degF] Barbra Davis Other [employer] Other 09-28-2021 11:00-0400 Body weight 65.77 kg Barbra Davis Other [employer] Other 09-28-2021 11:00-0400 SaO2% (BldA) [Mass fraction] 98 % Barbra Davis Other [employer] Other 09-23-2021 13:50-0400 Body height 170.18 cm Jaye Lyn Other [employer] Other 09-23-2021 13:50-0400 Body mass index (BMI) [Ratio] 22.71 kg/m2 Jaye Lyn Other [employer] Other 09-23-2021 13:50-0400 Body temperature 101.3 [degF] Jaye Lyn Other [employer] Other 09-23-2021 13:50-0400 Body weight 65.77 kg Jaye Lyn Other [employer] Other 09-23-2021 13:50-0400 SaO2% (BldA) [Mass fraction] 98 % Jaye Lyn Other [employer] Other Encounters Encounter Date Encounter Type Care Provider Facility Start: 04-19-2024 End: 04-19-2024 Bamboo flowsheet Yesica STEWART Work Phone: [facility] Start: 04-19-2024 End: 04-19-2024 Bamboo flowsheet Yesica STEWART Work Phone: [facility] Start: 04-19-2024 End: 04-19-2024 Patient encounter procedure Yesica STEWART Work Phone: [facility] Work Phone: Start: 04-19-2024 End: 04-19-2024 Periodic preventive med est patient 18-39 yrs Yesica STEWART Work Phone: [facility] Comment on above: Well woman exam with routine gynecological exam; Frequent urination Start: 04-19-2024 End: 04-19-2024 ambulatory YESICA SIMSEY Not Available Start: 04-11-2024 End: 04-11-2024 ambulatory Dana L Debora Facility:[facility] Start: 01-27-2024 End: 01-27-2024 ambulatory LAYO A RUSHER Not Available Start: 11-23-2023 End: 11-23-2023 ambulatory Dana L Debora Facility:[facility] Start: 10-21-2023 End: 10-21-2023 ambulatory LAYO A RUSHER Not Available Start: 07-16-2023 End: 07-16-2023 Office outpatient visit 15 minutes Layo Gautam [facility] Work Phone: [facility] Comment on above: Onychocryptosis (Miguelina sirena Dx); Paronychia of great toe of right foot; Pain of right great toe; Difficulty walking Start: 07-16-2023 End: 07-16-2023 ambulatory LAYO A RUSHER Not Available Start: 06-23-2023 End: 06-23-2023 ambulatory LAYO A RUSHER Not Available Start: 06-11-2023 End: 06-11-2023 ambulatory YESICA JANNA Not Available Start: 06-10-2023 End: 06-10-2023 ambulatory Dana L Debora Facility:[facility] Start: 05-19-2023 End: 05-19-2023 ambulatory Dana L Debora Facility:[facility] Start: 05-18-2023 End: 05-18-2023 ambulatory Dana L Debora Facility:[facility] Start: 05-12-2023 End: 05-12-2023 ambulatory Barbra Davis Other [employer] Other Start: 05-12-2023 Telephone encounter Barbra MACIAS [facility] Start: 05-11-2023 Office outpatient vi sit 15 minutes Barbra Davis [facility] Start: 05-11-2023 End: 05-11-2023 ambulatory Barbra Davis [employer] Other Start: 05-05-2023 End: 05-05-2023 ambulatory MD Aashish Bazan Facility:[facility] Start: 04-15-2023 ambulatory Sher FINE Facility : [facility] Start: 03-21-2023 End: 03-21-2023 ambulatory Juliette Marquez Other [employer] Other Start: 03-21-2023 Office outpatient vi sit 15 minutes Juliette Marquez [facility] Start: 03-18-2023 End: 03-18-2023 Lab Drop off Dana L Debora [facility] Start: 02-25-2023 End: 02-25-2023 Patient encounter procedure Sher Allen BABATUNDE [facility] Nill[facility] Start: 01-30-2023 End: 01-30-2023 Lab Drop off Dana L Debora [facility] Start: 11-10-2022 End: 11-10-2022 ambulatory KETTY CLEMENS . Facility: Start: 03-05-2022 End: 03-05-[address] TERESITA MCNULTY . Facility: Start: 09-28-2021 End: 09-28-2021 ambulatory Barbra Davis Other [employer] Other Start: 09-28-2021 Office outpatient vi sit 15 minutes Barbra Davis [facility] Start: 09-23-2021 End: 09-23-2021 ambulatory Jaye Lyn Other [employer] Other Start: 09-23-2021 Office outpatient vi sit 25 minutes Jaye Lyn [facility] Procedures Date Procedure Procedure Detail Performing Clinician Start: 11-10-2022 Pilonidal cyst (morphologic abnormality) Dana Debora Reattachment of finger Ludwig FINE Plan of Treatment Date Care Activity Detail Author Start: 04-24-2025 End: 04-24-2025 Patient encounter procedure 04/24/2025 10:00 AM EST Office Visit [facility] [address] [address] Yesica Saldivar PA [address] [place] [address] [facility] Start: 05-04-2024 End: 05-04-2024 Patient encounter procedure 05/04/2024 2:45 PM EST Office Visit [facility] [address] [place] [phone] Layo Gautam DPM [address] [place], [place] [id number] [facility] Start: 04-19-2024 End: 04-19-2025 CBC W Auto Differential panel - Blood CBC and differential Lab Routine Well woman exam with routine gynecological exam Expected: 04/19/2024 (Approximate), Expires: 04/19/2025 [facility] Comment on above: Expected: 04/19/2024 (Approximate), Expires: 04/19/2025 Start: 04-19-2024 End: 04-19-2025 Comprehensive metabolic 2000 panel - Serum or Plasma Comprehensive metabolic panel Lab Routine Well woman exam with routine gynecological exam Expected: 04/19/2024 (Approximate), Expires: 04/19/2025 [facility] Comment on above: Expected: 04/19/2024 (Approximate), Expires: 04/19/2025 Start: 04-19-2024 End: 04-19-2025 Hemoglobin A1c/Hemoglobin.total in Blood Hemoglobin A1c Lab Routine Well woman exam with routine gynecological exam Expected: 04/19/2024 (Approximate), Expires: 04/19/2025 [facility] Comment on above: Expected: 04/19/2024 (Approximate), Expires: 04/19/2025 Start: 04-19-2024 End: 04-19-2025 Lipid 1996 panel - Serum or Plasma Lipid panel Lab Routine Well woman exam with routine gynecological exam Expected: 04/19/2024 (Approximate), Expires: 04/19/2025 [facility] Comment on above: Expected: 04/19/2024 (Approximate), Expires: 04/19/2025 Start: 04-19-2024 End: 04-19-2025 Thyrotropin [Units/volume] in Serum or Plasma TSH Lab Routine Well woman exam with routine gynecological exam Expected: 04/19/2024 (Approximate), Expires: 04/19/2025 [facility] Comment on above: Expected: 04/19/2024 (Approximate), Expires: 04/19/2025 Start: 04-19-2024 End: 04-19-2025 Urinalysis complete panel - Urine Urinalysis with reflex microscopic Lab Routine Frequent urination Expected: 04/19/2024 (Approximate), Expires: 04/19/2025 [facility] Comment on above: Expected: 04/19/2024 (Approximate), Expires: 04/19/2025 Start: 04-19-2024 End: 04-19-2024 Patient encounter procedure [facility] Comment on above: Arrived Start: 10-21-2023 End: 10-21-2023 Patient encounter procedure 10/21/2023 3:15 PM EDT Office Visit [facility] [address] [place] [phone] Layo Gautam, MAXINE [address] [place], [place] [id number] [facility] Cytology Cervical or vaginal smear or scraping study Pap Smear Pathology and Cytology Routine Well woman exam with routine gynecological exam Ordered: 04/19/2024 [facility] Work Phone: Comment on above: Ordered: 04/19/2024 Payers Date Payer Category Payer [employer] Blue [employer] [id number] 2023 [employer] Blue [employer] BCBS [id number] 2023 Unknown BCBS BCBS [id number] [id number] 2023-Present [phone] [address] [place] [id number] [id number] 1996 Unknown [id number] 2.16.840.1.324941.3.579. 2.593 1996 Unknown [id number] 2.16.840.1.484868.3.579. 2.593 1996 Unknown [id number] 2.16.840.1.606629.3.579. 2. 1996 Unknown [id number] 2.16.840.1.236674.3.579. 2.727 1996 Unknown [id number] 2.16.840.1.369512.3.579. 2. 1996 Unknown [id number] 2.16.840.1.024558.3.579. 2.727 1996 Unknown [id number] 2.16.840.1.402575.3.579. 2. 1996 Unknown [id number] 2.16.840.1.142603.3.579. 2.727 1996 Unknown [id number] 2.16.840.1.951497.3.579. 2. 1996 Unknown [id number] 2.16.840.1.668049.3.579. 2.727 1996 Unknown [id number] 2.16.840.1.286119.3.579. 2.9 1996 Unknown [id number] 2.16.840.1.325586.3.579. 2.9 1996 Unknown [id number] 2.16.840.1.814620.3.579. 2.9 1996 Unknown [id number] 2.16.840.1.104193.3.579. 2.9 1996 Unknown [id number] 2.16.840.1.429044.3.579. 2.9 1996 Unknown [id number] 2.16.840.1.435383.3.579. 2.1259 1958 [facility] [id number] 2.16.840.1.174011.19 1959 Self-pay Unknown [id number] 2.16.840.1.966497.3.579. 2.531 Social History Date Type Detail Facility Unknown if ever smoked [employer] Other Start: 06-18-2023 End: 01-27-2024 Sex Assigned At [facility] Start: 01-30-2023 End: 03-10-2023 Tobacco smoking status Never smoked tobacco (finding) [facility] Tobacco smoking status Never [facility] Start: 03-10-2023 Tobacco use and exposure Smokeless tobacco non-user [facility] Start: 07-16-2023 End: 04-19-2024 Alcohol intake Current drinker of alcohol (finding) [facility] Start: 06-18-2023 End: 01-27-2024 History of Social function [facility] How often to you hav e a drink containing alcohol? Monthly or less [facility] How many standard drinks containing alcohol do you have on a typical day? 1 or 2 [facility] How often do you hav e 6 or more drinks on 1 occasion? Monthly [facility] Start: 03-09-2023 Alcohol Comment 1-2 drinks les s than monthly in the past year [facility] Start: 1996 Sex Assigned At Not on file N [facility] Functional Status Date Assessment Result Facility 02-25-2023 Functional Status N/A General [facility] Clinical Notes 09-23-2021 to 04-19-2024 TERRY Lange - 04/19/2024 9:00 AM ESTSteven Fan Gautam DPM - 07/16/2023 9:30 AM ESTPatient Instructions Note Date & Type Note Facility 04-19-2024 History of Presen t illness Narrative Reason for Appointment: Patient ID: Jewell Richardson is a 28 y.o. female who presents for Well Women Visit Patient presents today for Annual Exam. MEDICATIONS Current Outpatient Medications Medication Instructions ibuprofen 800 mg, Every 8 hours levonorgestrel-ethinyl estradiol (Seasonale) 0.15-0.03 MG tablet 1 tablet, Daily ALLERGIES No Known Allergies PROBLEMS Active Ambulatory Problems Diagnosis Date Noted No Active Ambulatory Problems Resolved Ambulatory Problems Diagnosis Date Noted No Resolved Ambulatory Problems Past Medical History: Diagnosis Date PCOS (polycystic ovarian syndrome) HISTORY PAST MEDICAL HISTORY SOCIAL HISTORY Past Medical History: Diagnosis Date PCOS (polycystic ovarian syndrome) Social History Tobacco Use Smoking status: Never Smokeless tobacco: Never Vaping Use Vaping status: Never Used Substance Use Topics Alcohol use: Yes Comment: 1-2 drinks less than monthly in the past year Drug use: Never FAMILY HISTORY Family History Problem Relation Name Age of Onset Diabetes Paternal Grandfather Cancer Other SURGICAL HISTORY No past surgical history on file. REVIEW OF SYSTEMS Review of Systems: Review of Systems Constitutional: Negative. HENT: Negative. Eyes: Negative. Respiratory: Negative. Cardiovascular: Negative. Gastrointestinal: Negative. Genitourinary: Positive for urgency. Musculoskeletal: Negative. Skin: Negative. Neurological: Negative. All other systems reviewed and are negative. Hematological: Negative. Endocrine: Negative. Allergic/Immunologic: Negative. OBJECTIVE Objective: Physical Exam Constitutional: Appearance: Normal appearance. She is normal weight. Genitourinary: Right Adnexa: not tender and no mass present. Left Adnexa: not tender and no mass present. No cervical discharge. Breasts: Breasts are soft. Right: Normal. Left: Normal. HENT: Head: Normocephalic. Nose: Nose normal. Mouth/Throat: Mouth: Mucous membranes are moist. Cardiovascular: Rate and Rhythm: Normal rate. Pulses: Normal pulses. Pulmonary: Effort: Pulmonary effort is normal. Breath sounds: Normal breath sounds. Abdominal: General: Bowel sounds are normal. Palpations: Abdomen is soft. Musculoskeletal: General: Normal range of motion. Cervical back: Normal range of motion. Neurological: General: No focal deficit present. Mental Status: She is alert and oriented to person, place, and time. Skin: General: Skin is warm and dry. Psychiatric: Mood and Affect: Mood normal. Behavior: Behavior normal. Thought Content: Thought content normal. Judgment: Judgment normal. Vitals and nursing note reviewed. Exam conducted with a foreign languages department chair present. Vitals: Estimated body mass index is 23.4 kg/m as calculated from the following: Height as of 01/27/24: 5' 6 . Weight as of 01/27/24: 145 lb. BP: No LMP recorded. ASSESSMENT & PLAN ICD-10-CM 1. Well woman exam with routine gynecological exam Z01.419 Annual Exam: Patient presents today for an annual exam. Patient states she is having increased urinary frequency. Feels she urinates excessively for over one year. Denies weight loss. She would like a referral to urology. We will also send wellness labs and urinalysis order for evalulation Orders Placed This Encounter Procedures TSH Lipid panel Comprehensive metabolic panel Hemoglobin A1c CBC and differential Urinalysis with reflex microscopic Follow Up: Patient is to return in one year for annual unless needed otherwise. Documented by Cris Lebron LPN on behalf of: TERRY Lange documented in this encounter [facility] 07-16-2023 History of Presen t illness Narrative [...] Layo Gautam DPM documented in this encounter [facility] 07-16-2023 Instructions Layo Gautam DPM - 07/16/2023 9:30 AM EST As noted documented in this encounter [facility] 05-11-2023 Evaluation note Encounter Date Diagnosis Assessment [...] vomiting chills or fevers. Denies any headache. [employer] Other 10-07-2023 Evaluation note* Encounter Date Diagnosis [...] week. Patient verbalized understanding of treatment plan. [employer] Other 10-04-2023 Evaluation + Plan note Diagnostic Tests Pending * PAP [id number] IG w/rflx HPV 03/18/23 [facility]04-16-2022 Evaluation note* Encounter Date Diagnosis Assessment Notes Treatment Notes Treatment Clinical Notes Sep, Acute sinusitis, recurrence not specified, unspecified location (ICD-10 - J01.90) Drink plenty fluids, get plenty of rest. Take the amoxicillin with clavulanate as prescribed until gone. Take the prednisone as prescribed until gone. Use the Flonase inhaler as prescribed until your symptoms improve. You may continue your gean-icx-frqhoyn medications as instructed. Follow-up with your family physician if no improvement in 2 to 3 days. [employer] Other 04-11-2022 Evaluation note* Encounter Date Diagnosis [...] primary care provider to discuss antibiotic therapy [facility] Other Evaluation + Plan note No data available for this section [facility] Other Evaluation note* Diagnosis Onychocryptosis- Primary Ingrowing nail Paronychia of great toe of right foot Pain of right great toe Difficulty walking Difficulty in walking [facility] Diagnosis Well woman exam with routine gynecological exam Routine gynecological examination Frequent urination Urinary frequency documented in this encounter [facility] Narrative - Reported* Type Description Date Medical History acne Medical History asthma-not confirmed [facility] Other Hospital Discharge instructions No data available for this section [facility] No data available for this section [facility] Summary Purpose Family History No Family History [...] Pt has been soaking in epsom salts. Reason Comments Well Women Visit INFORMATION SOURCE (unrecogn ized section and content) DATE CREATED AUTHOR 11/21/2022 [facility] DATE CREATED AUTHOR AUTHOR'S ORGANIZ ATION 05/22/2023 [facility] DATE CREATED AUTHOR AUTHOR'S ORGANIZ ATION 04/12/2024 [facility] DATE CREATED AUTHOR AUTHOR'S ORGANIZ ATION 04/20/2024 [facility] EPIC Patient Care team informatio n (unrecognized section and content) [employer] Relationship Specialty Start Date End Date Lindy Mcgregor MD [address] [place] [phone] PCP - General Family Medicine 03/09/23 [employer] Relationship Specialty Start Date End Date Lindy Mcgregor MD [address] [place] [address] PCP - General Family Medicine 03/09/23 [employer] Relationship Specialty Start Date End Date Lindy Mcgregor MD [address] [place] [address] PCP - General Family Medicine 03/09/23 FOR [...] BE BASED ON THE PRIMARY CLINICAL RECORDS. [employer] [facility]. provides no warranty or guarantee of the accuracy or completeness of information in this document.
[2024-04-20 15:28] LABS: Estimated Average Glucose 97 mg/dL
[2024-04-20 15:29] LABS: Bilirubin Urine NEGATIVE (NEGATIVE); Blood Urine SMALL (NEGATIVE); Clarity Urine CLEAR (CLEAR); Color Urine LT. YELLOW (YELLOW); Glucose Urine UA NEGATIVE (NEGATIVE); Ketones Urine NEGATIVE (NEGATIVE); Leukocyte Esterase Urine NEGATIVE (NEGATIVE); Nitrite Urine NEGATIVE (NEGATIVE); Protein Urine NEGATIVE (NEG/TRACE); Urobilinogen Urine 0.2 EU/dL (0.2-1.0)
[2024-04-20 15:30] LABS: Urine Microscopic Indicated YES
[2024-04-20 15:32] LABS: Basophils Percent Auto 0.5 % (0.2-2.0); Eosinophils Absolute Auto 0.1 10^3/uL (0.0-0.7); Eosinophils Percent Auto 2.1 % (0.9-7.0); Hematocrit 40.6 % (36.0-48.0); Hemoglobin 13.5 g/dL (12.0-16.0); Immature Granulocytes Abs Auto 0.01 10^3/uL (0.00-0.03); Immature Granulocytes Pct Auto 0.2 % (0.0-0.5); Lymphocytes Absolute Auto 2.5 10^3/uL (1.2-3.8); Lymphocytes Percent Auto 39.8 % (20.5-60.0); Mean Corpuscular HGB Conc 33.3 g/dL (29.9-35.2); Mean Corpuscular Hemoglobin 29.9 pg (26.7-34.0); Mean Corpuscular Volume 89.8 fL (81.0-99.0); Mean Platelet Volume 10.3 fL (9.5-13.5); Monocytes Absolute Auto 0.4 10^3/uL (0.3-0.8); Monocytes Percent Auto 6.2 % (1.7-12.0); Neutrophils Absolute Auto 3.2 10^3/uL (1.4-6.5); Neutrophils Percent Auto 51.2 % (43.0-75.0); Platelet Count 251 10^3/uL (150-450); Red Blood Count 4.52 10^6/uL (4.20-5.40); Red Cell Distribution Width 12.6 % (11.0-15.0); White Blood Count 6.2 10^3/uL (4.0-11.0)
[2024-04-20 15:40] LABS: WBC Urine NONE SEEN #/HPF (NONE SEEN)
[2024-04-20 15:41] LABS: Bacteria Urine TRACE #/HPF (NONE SEEN); Cast Seen? NONE SEEN #/LPF (NONE SEEN); Crystals Seen? None Seen #/HPF (None Seen); Mucus Urine NONE SEEN (NONE SEEN); Squamous Epithelial Cell Urine RARE #/LPF (NONE/RARE)
[2024-04-20 15:42] LABS: Alanine Aminotransferase 29 U/L (14-59); Albumin Level 3.5 g/dL (3.4-5.0); Alkaline Phosphatase 59 U/L (46-116); Anion Gap 12.6; Aspartate Amino Transferase 17 U/L (15-37); BUN Creatinine Ratio 17.2; Bilirubin Total 0.4 mg/dL (0.2-1.0); Calcium 9.1 mg/dL (8.5-10.1); Carbon Dioxide 23.3 mmol/L (21.0-32.0); Chloride 108 mmol/L (98-107); Chol HDL Ratio 2.2; Cholesterol 134 mg/dL (<=200); Estimated GFR (African America >60 (>=60 mL/min/1.73m^2); Estimated GFR (Non-African Ame >60 (>=60 mL/min/1.73m^2); Globulin 3.6 g/dL; Glucose 92 mg/dL (74-106); HDL Cholesterol 60 mg/dL (40-60); LDL Cholesterol Calculated 58.8 mg/dL; Potassium 3.9 mmol/L (3.5-5.1); Sodium 140 mmol/L (136-145); Thyroid Stimulating Hormone 2.437 uIU/mL (0.358-3.740); Total Protein 7.1 g/dL (6.4-8.2); Triglycerides 76 mg/dL (<=150); VLDL CHOLESTEROL 15.2 mg/dL
== END 2024-04-20 15:05 | disposition home or self-care (01) ==
LOC: LAB 15:04
PROVIDERS: PCP Nurse Practitioner; Visit Provider Physician Assistant
DX: Z01.419 Encounter for gynecological examination (general) (routine) without abnormal findings (principal)
CPT/HCPCS: 36415; 80053; 80061; 81001; 83036; 84443; 85025

== ENCOUNTER 2024-09-01 14:40 | Outpatient (OUT) | payer BC, SELFPAY ==
--- OUTSIDE RECORDS SUMMARY | 2024-09-01 15:03 | XMS_ITS | CCD ---
Author Organization [facility] Care Team Providers Care Professor Of 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 Education Name Role Phone Barbra Davis Unavailable Jaye Lyn Unavailable DIAB ., KETTY Attending Unavailable DIAB ., KETTY Consulting Unavailable DIAB . KETTY Admitting Unavailable MCGREGOR ., DR LINDY Renteria Primary Care Unavailable CAROL ., DR LO Attending Unavailable CAROL ., DR LO Consulting Unavailable CAROL ., DR LO Admitting Unavailable MCGREGOR ., DR LINDY Renteria Primary Care Unavailable Dana Cazares Primary Care Physician [phone] Juliette Marquez Unavailable Barbra Davis Attending Unavailable Barbra Davis Admitting Unavailable Lindy Mcgregor MD Primary Care Provider [phone] LAYO GAUTAM Attending Unavailable RUSHER, LAYO Chavira Attending Unavailable RUSHER, LAYO Chavira Attending Unavailable JANNAYESICA Attending Unavailable RUSHER, LAYO Chavira Attending Unavailable RUS, LAYO Chavira Attending Unavailable Debora, Dana Law Attending Unavailable Debora, Dana Law Attending Unavailable Debora, Dana Law Attending Unavailable LA SCHERER Attending Unavailable DeboraDana Attending Unavailable Medications Current Medications Medication Drug Class(es) Dates Sig (Normalized) Sig (Original) amoxicillin 875 mg / clavulanate 125 mg oral tablet (1 source) Penicillin-class Antibacterial Start: 09-28-2021 take 1 tablet by mouth every twelve hours Amoxicillin-Pot Clavulanate 875-125 MG 1 tablet Orally every 12 hrs for 10 day(s) Sep, Active Ethinyl Estradiol / Levonorgestrel (15 sources) Progestin, Estrogen, Progestin-containin g Intrauterine Device [...] Sep, Active ibuprofen 800 mg oral tablet (20 sources) Nonsteroidal Anti-inflammatory Drug Start: 01-30-2023 take [...] Sep, Active terbinafine 250 mg oral tablet (10 sources) Allylamine Antifungal Start: 08-11-2024 End: 11-09-2024 take 1 tablet by mouth once daily terbinafine (LamISIL) 250 MG tablet Indications: Dermatophytosis of nail , Dystrophic nail , Pain around toenail Take 1 tablet (250 mg) by mouth Daily 90 tablet 08/11/2024 11/09/2024 Active End: 04-19-2024 take 1 tablet by mouth [...] 8 hours prn for 7 days Not-Taking ethinyl estradiol-levonorgest rel extended cycle 30 mcg-0.15 mg Tab (1 source) Start: 12-21-2023 ethinyl estradiol-levonorges trel extended cycle 30 mcg-0.15 mg Tab See Instructions, 91 tab(s), Refill(s) 2, TAKE 1 TABLET BY MOUTH EVERY DAY, [id number], 167.6, cm, 06/10/23 8:12:00 EST, Height/Length Dosing, 67, kg, 06/10/23 8:12:00 EST, Weight Dosing Start Date: 12/21/23 Status: Ordered Triamcinolone (6 sources) Corticosteroid Start: 05-21-2016 KENALOG - 10 mg May, 40 mg Problems Active Problems Problem Classification Problem Date Documented Date Episodic/Chronic Abdominal pain (1 source) Pain in pelvis 05-19-2023 Episodic Acute bronchitis (6 sources) Acute bronchitis; Translations: [Acute bronchitis] Episodic Chronic obstructive pulmonary disease and bronchiectasis (1 source) Bronchitis 04-11-2024 Episodic Genitourinary symptoms and ill-defined conditions (6 sources) Dysuria; Translations: [Dysuria] Onset: 05-11-2023 Episodic Inflammatory diseases of female pelvic organs (1 source) Bacterial vaginosis 05-19-2023 Episodic Mycoses (7 sources) Onychomycosis due to dermatophyte ; Translations: [Tinea unguium] 05-04-2024 Episodic Other connective tissue disease (3 sources) Pain in hallux; Translations: [Pain in right toe(s)] 07-16-2023 Episodic Other connective tissue disease (6 sources) Pain in toe; Translations: [Pain in unspecified toe(s)] 05-04-2024 Episodic Other endocrine disorders (1 source) Polycystic ovary syndrome 06-10-2023 Chronic Other nervous system disorders (3 sources) Difficulty walking; Translations: [Difficulty in walking, not elsewhere classified] 07-16-2023 Chronic Other nutritional; endocrine; and metabolic disorders (3 sources) Overweight in adulthood with body mass index of 25 or more but less than 30 02-25-2023 Episodic Other skin disorders (1 source) Disorder of skin; Translations: [Other specified disorders of the skin and subcutaneous tissue] Onset: 02-25-2023 Episodic Other skin disorders (3 sources) Pilonidal disease 02-25-2023 Episodic Other skin disorders (5 sources) Ingrowing nail; Translations: [Ingrowing nail] 07-16-2023 Episodic Other skin disorders (6 sources) Dystrophia unguium; Translations: [Nail dystrophy] 05-04-2024 Episodic Other upper respiratory infections (8 sources) Upper respiratory infection; Translations: [Upper respiratory infection] Onset: 09-23-2021 Resolved: 09-28-2021 Episodic Skin and subcutaneous tissue infections (10 sources) Pilonidal cyst with abscess; Translations: [Pilonidal cyst] Onset: 11-10-2022 Episodic Sprains and strains (1 source) Strain of other muscles, fascia and tendons at shoulder and upper arm level, right arm, initial encounter Episodic Unclassified (6 sources) Patient encounter status 01-30-2023 Unclassified (2 sources) Cancer cervix screening status 03-18-2023 Past or [...] Test Name Value Interpretation Reference Range Facility Ambulatory Visit Summaryon 0 08-23-2024 Ambulatory Visit Summary Ambulatory Visit Summary JEWELL RICHARDSON :1995 Visit Date:08/23/2024 Ambulatory Visit Instructions Your Diagnosis Cough Sinusitis Fluid level behind tympanic membrane of both ears BMI 25.0-25.9,adult Non-smoker Your Care Team Attending Physician - Dana Pastor Primary Care Physician - Dana Pastor This Is Your Medications List amoxicillin-clavulan ate (Augmentin 875 mg oral tablet) brompheniramine/dext romethorphan/PSE (Bromfed DM oral syrup) ethinyl estradiol-levonorges trel (ethinyl estradiol-levonorges trel extended cycle 30 mcg-0.15 mg Tab) ibuprofen (ibuprofen 800 mg Tab) Procedures Performed Headache, Ovarian cyst, PCOS- polycystic ovary syndrome, Reattachment of finger. Discharge Vitals Temperature (Tympanic) 37.1 ???C Heart Rate (Peripheral) 128 Respiratory Rate 20 Blood Pressure 130/88 Height 168.0 cm Height 66 in Weight 71.8 kg Weight 158.292 lb BMI 25.44 Medications What How Much When Why Instructions New amoxicillin-clavulan ate (Augmentin 875 mg oral tablet) 1 Tablets By Mouth Every 12 hours Cough Sinusitis Fluid level behind tympanic membrane of both ears BMI 25.0-25.9,adult Non-smoker Duration: 7 Days Pickup at [facility]/pharmacy #[id number] New brompheniramine/ dextromethorphan/ PSE (Bromfed DM oral syrup) 5 Milliliter By Mouth 4 times a day as needed for for cough and congestion Cough Sinusitis Fluid level behind tympanic membrane of both ears BMI 25.0-25.9,adult Non-smoker Pickup at [facility]/pharmacy #[id number] Unchanged ethinyl estradiol-levonorges trel (ethinyl estradiol-levonorges trel extended cycle 30 mcg-0.15 mg Tab) See instructions TAKE 1 TABLET BY MOUTH EVERY DAY Unchanged ibuprofen (ibuprofen 800 mg Tab) 1 Tablets By Mouth Every 8 hours Pharmacy Information [facility]/pharmacy #[id number]: [address], [place] [id number] [phone] Medications and Immunizations Administered Given triamcinolone acetonide 40 mg/mL Inj Susp, 40 mg, IntraMuscular. For: Cough, BMI 25.0-25.9,adult, Non-smoker Allergies No Known Allergies Problems Ongoing - Any problem that you are currently receiving treatment for. Bacterial vaginitis BMI 25.0-25.9,adult Body aches Bronchitis Cervical cancer screening Cough Fluid level behind tympanic membrane of both ears PCOS (polycystic ovarian syndrome) Pelvic pain Pilonidal cyst Pilonidal disease Sinusitis Vaginal sasha Well woman exam Wellness examination Patient Survey You may receive a survey via text or e-mail asking about your office visit. Please share your experience with us by completing your survey. We appreciate your feedback and thank you for choosing us for your care. Giuseppe [facility] Family Medicine Office/Clini c Noteon 08-23-2024 Family Medicine Office/Clinic Note Family Medicine Office/Clinic Note HPI Staff Jewell is a 28 year old female presenting for acute sick visit Respiratory C/O: Onset: 3 days Body aches: yes Chest congestion: no Chills: yes Cough: yes Sputum production: yes Sore throat: yes Ear complaints: yes bilateral ear pain Eye itching/watering: no Fever: no unable to check but does feel like she could Headache: no Nasal congestion: no Nasal discharge: yes Poor appetite: no Reduced activity: no Sinus pain/pressure: yes Sneezing: no Wheezing: no Ill contacts: no Remedies tried: Tylenol, ibuprofen Questions/Concerns: History of Present Illness pt presents today for URI symptoms Review of Systems PHQ Score Initial Depression Screen Score: 2 SCORE Physical Exam Vitals & Measurements T: 37.1 ???C(Tympanic) HR: 128(Peripheral) RR: 20 BP: 130/88 SpO2: 97% HT: 66 in HT: 168.0 cm WT: 71.8 kg WT: 158.292 lb BMI: 25.44 General: alert, no acute distress ENMT: oral mucosa moist, no pharyngeal erythema or exudate Cardiovascular: regular rate and rhythm, normal peripheral perfusion Respiratory: Lungs CTA, respirations non labored Extremities: no deformity, no trauma Neurological: oriented x 4, LOC appropriate for age, CN II-XII intact, motor strength equal & normal bilaterally, speech normal Assessment/Plan 1. Cough (R05.9: Cough, unspecified) covid and flu both negative in office today. pt c/o cough, congestion, body aches. rotate tylenol and ibuprofen every 4 hours. will send bromfed and give 40mg kenalog in office today Ordered: amoxicillin-clavulan ate, = 1 tab(s), Oral, q12hr, X 7 day(s), # 14 tab(s), Refills(s) 0, Pharmacy: [facility]/pharmacy #[id number], 168, cm, 08/23/24 10:43:00 EDT, Height/Length Dosing, 71.8, kg, 08/23/24 10:43:00 EDT, Weight Dosing brompheniramine/dext romethorphan/PSE, 5 mL, Oral, QID for cough and congestion, 200 mL, Refill(s) 0, [facility][id number], 168, cm, 08/23/24 10:43:00 EDT, Height/Length Dosing, 71.8, kg, 08/23/24 10:43:00 EDT, Weight Dosing triamcinolone, 40 mg = 1 mL, Injection, IntraMuscular, Once, Stop date 08/23/24 10:54:00 EDT, Routine, Start date 08/23/24 10:54:00 EDT, 08/23/24 10:54:00 EDT Influenza Type A&B POC 25098 Rapid COVID POC 78400 2. Sinusitis (J32.9: Chronic sinusitis, unspecified) sinus tenderness, nasal congestion. will send in augmenting Ordered: amoxicillin-clavulan ate, = 1 tab(s), Oral, q12hr, X 7 day(s), # 14 tab(s), Refills(s) 0, Pharmacy: [facility]/pharmacy #[id number], 168, cm, 08/23/24 10:43:00 EDT, Height/Length Dosing, 71.8, kg, 08/23/24 10:43:00 EDT, Weight Dosing brompheniramine/dext romethorphan/PSE, 5 mL, Oral, QID for cough and congestion, 200 mL, Refill(s) 0, [facility]/pharmacy #[id number], 168, cm, 08/23/24 10:43:00 EDT, Height/Length Dosing, 71.8, kg, 08/23/24 10:43:00 EDT, Weight Dosing 3. Fluid level behind tympanic membrane of both ears (H65.93: Unspecified nonsuppurative otitis media, bilateral) kenalog given in office today. pt getting dizzy from fluid Ordered: amoxicillin-clavulan ate, = 1 tab(s), Oral, q12hr, X 7 day(s), # 14 tab(s), Refills(s) 0, Pharmacy: [facility]/pharmacy #[id number], 168, cm, 08/23/24 10:43:00 EDT, Height/Length Dosing, 71.8, kg, 08/23/24 10:43:00 EDT, Weight Dosing brompheniramine/dext romethorphan/PSE, 5 mL, Oral, QID for cough and congestion, 200 mL, Refill(s) 0, [id number], 168, cm, 08/23/24 10:43:00 EDT, Height/Length Dosing, 71.8, kg, 08/23/24 10:43:00 EDT, Weight Dosing 4. BMI 25.0-25.9,adult (Z68.25: Body mass index [BMI] 25.0-25.9, adult) BMI education gvien Ordered: amoxicillin-clavulan ate, = 1 tab(s), Oral, q12hr, X 7 day(s), # 14 tab(s), Refills(s) 0, Pharmacy: [facility]/pharmacy #[id number], 168, cm, 08/23/24 10:43:00 EDT, Height/Length Dosing, 71.8, kg, 08/23/24 10:43:00 EDT, Weight Dosing brompheniramine/dext romethorphan/PSE, 5 mL, Oral, QID for cough and congestion, 200 mL, Refill(s) 0, [facility]/pharmacy #[id number], 168, cm, 08/23/24 10:43:00 EDT, Height/Length Dosing, 71.8, kg, 08/23/24 10:43:00 EDT, Weight Dosing triamcinolone, 40 mg = 1 mL, Injection, IntraMuscular, Once, Stop date 08/23/24 10:54:00 EDT, Routine, Start date 08/23/24 10:54:00 EDT, 08/23/24 10:54:00 EDT Influenza Type A&B POC 68367 Rapid COVID POC 61709 5. Non-smoker (Z78.9: Other specified health status) continue not smoking Ordered: amoxicillin-clavulan ate, = 1 tab(s), Oral, q12hr, X 7 day(s), # 14 tab(s), Refills(s) 0, Pharmacy: [facility]/pharmacy #[id number], 168, cm, 08/23/24 10:43:00 EDT, Height/Length Dosing, 71.8, kg, 08/23/24 10:43:00 EDT, Weight Dosing brompheniramine/dext romethorphan/PSE, 5 mL, Oral, QID for cough and congestion, 200 mL, Refill(s) 0, [facility]/pharmacy #[id number], 168, cm, 08/23/24 10:43:00 EDT, Height/Length Dosing, 71.8, kg, 08/23/24 10:43:00 EDT, Weight Dosing triamcinolone, 40 mg = 1 mL, Injection, IntraMuscular, Once, Stop date 08/23/24 10:54:00 EDT, Routine, Start date 08/23/24 10:54:00 EDT, 08/23/24 10:54:00 EDT Influenza Type A&B POC 25112 Rapid COVID POC 55404 Follow-up No qual (more content not included)... Normal [facility] Comment on above: Result Comment: Elec tronically Signed By: Dana Pastor\Date and Time Signed: 08/23/24 11:00 EDT Urology Office/Clinic Noteon 05-11-2024 Urology Office/Clinic Note Urology Office/Clinic Note Chief Complaint urinary frequency HPI Staff Referral by Dr. Mcnulty's office for frequency of urination. Reports that she does drink a lot of water. Could not provide a urine sample at this time. PVR - 42mL today. *takes cranberry supplement daily Dysuria: denies burning or pain Incomplete bladder emptying: denies Hematuria: denies Frequency: urinating about every 1-2hrs Urgency: can hold urine for about 30min, then she needs to get to the restroom. Nocturia: every day is different, but on average 2-3x per night Stream: good stream Leaking: denies Post void dripping: denies Wearing pads/ Depends: denies Urge incontinence: denies Stress incontinence: yes Incontinence without Sensory Awareness: denies Abdominal pain: denies Flank pain: denies Review of Systems PHQ Score Initial Depression Screen Score: 2 SCORE no fever, chills, malaise, myalgia. no rash/lesions. no abdominal pain, nausea, vomiting. Physical Exam Vitals & Measurements T: 37 ???C(Oral) HR: 83(Peripheral) RR: 16 BP: 106/80 HT: 66 in HT: 168 cm WT: 70.5 kg WT: 155.426 lb BMI: 24.98 General: nontoxic, NAD Mouth: moist mucosa Lungs: normal respiratory effort Cardio: regular rate, good distal perfusion Abdomen: nondistended, no suprapubic distention or tenderness, no CVA tenderness Neurologic: Grossly normal Skin: No rashes or suspicious lesions Assessment/Plan 1. Urinary frequency (R35.0: Frequency of micturition) Does not report excessive thirst. Had a UTI about a year ago and drastically & intentionally increased her fluid intake since that time. On average has 1c coffee, 6-8x 20oz yeti of water, and occasional juice. I explained this is likely the source of her frequency as her intake is >4.5L on any given day. Explained that for stone-formers we recommend 2.5L and for [id number] it can be even less. She is at least double to possibly triple the intake she requires. Discussed bladder irritants. Discussed bowel health and bowel/bladder connection. Discussed kegels for pelvic floor strengthening. Recommend slow and steady decrease of fluid intake to a more reasonable level around 2L daily. See if frequency improves in turn. If develops excessive thirst, f/u w PCP to r/o diabetes etc. If frequency persists despite reduced intake, contact us for f/u. Otherwise f/u PRN. Ordered: E&M of New Patient Low 30-44 Min [id number] Follow-up With When Contact Information [facility] Additional Instructions: Only if needed/new problems arise. No scheduled appointment indicated at this time. Patient Education Urinary Frequency, Adult Problem List/Past Medical History Ongoing Bacterial vaginitis BMI 25.0-25.9,adult Bronchitis Cervical cancer screening PCOS (polycystic ovarian syndrome) Pelvic pain Pilonidal cyst Pilonidal disease Vaginal sasha Well woman exam Wellness examination Historical No qualifying data Procedure/Surgical History Headache, Ovarian cyst, PCOS- polycystic ovary syndrome, Reattachment of finger. Medications ethinyl estradiol-levonorges trel extended cycle 30 mcg-0.15 mg Tab, See Instructions ibuprofen 800 mg Tab, 800 mg= 1 tab(s), Oral, q8hr, 1 refills Allergies No Known Allergies Social History Alcohol - Denies Alcohol Use, 02/25/2023 Never., 04/11/2024 Substance Abuse - Denies Substance Abuse, 02/25/2023 Never., 04/11/2024 Tobacco Never (less than 100 in lifetime) Tobacco Use:. Never Smokeless Tobacco Use:., 05/10/2024 Family History Acute myocardial infarction: Grandparent. Cancer: Grandparent. Diabetes mellitus type 2: Grandparent. Melanoma of skin: Grandparent. Immunizations Vaccine Date Status Comments influenza virus vaccine, inactivated - Not Given Postpone due to refusal Normal [facility] Comment on above: Result Comment: Elec tronically Signed By: GILMER TAYLOR, LA Sue\Date and Time Signed: 05/11/24 16:20 EST IGP,APTIMA HPV,AGE GDLNon AGE GDLN ACOG TESTING Note . [facility] Comment on above: TESTS RESULT FLAG UN ITS REF RANGE LAB Clinician Provided Cytology Information Source.............Cervix;Endocervix No. of containers..01 ThinPrep Vial Age Algo ACOG Patricia... FLAG LEGEND: L-Low Normal,H-High Normal,LL-Alert Low,HH-Alert High <-Panic Low,>-Panic High,A-Abnormal,AA-Critical Abnormal Performed at: 01 =[address] [facility] [place] [address] Milka Whitley MD, IGP, RFX APTIMA HPV ASCU Note . [facility] Comment on above: TESTS RESULT FLAG UN ITS REF RANGE LAB DIAGNOSIS: 02 NEGATIVE FOR INTRAEPITHELIAL LESION OR MALIGNANCY. Specimen adequacy: 02 Satisfactory for evaluation. Endocervical and/or squamous metaplastic cells (endocervical component) are present. Performed by: Chino Hamilton [facility] Pre Need Consultant ([facility]) . 02 Note: Note 03 The Pap smear is a screening test designed to aid in the detection of premalignant and malignant conditions of the uterine cervix. It is not a diagnostic procedure and should not be used as the sole means of detecting cervical cancer. Both false-positive and false-negative reports do occur. Test Methodology: Note 03 This liquid based ThinPrep(R) pap test was screened with the use of an image guided system. . 02 The HPV DNA reflex criteria were not met with this specimen result therefore, no HPV testing was performed. FLAG LEGEND: L-Low Normal,H-High Normal,LL-Alert Low,HH-Alert High <-Panic Low,>-Panic High,A-Abnormal,AA-Critical Abnormal Performed at: 02 [facility] [address] [address] Darrius Jimenez MD, [address] [address] Milka Whitley MD, Performed at: = - [facility] [id number] [employer] Supervisor: Milka Whitley MD, Phone: [phone] Performed at: [facility] [address] [place], [place] [id number] [employer] Supervisor: Darrius Jimenez MD, Phone: [phone] BRUSH-SPATULA CERVIX ENDOCERVIX [facility] HEMOGLOBIN A1Con 024 Glucose [Mass/Vol] 97 mg/dL [facility] HbA1c (Bld) [Mass fraction] 5 % 4.5 - 6.2 % [facility] Comment on above: ADA RECOMMENDED LIMI T 4.0 - 6.0 ADA THERAPEUTIC TARGET < 7.0 ACTION SUGGESTED > 7.0 [facility] Family Medicine Office/Clini c Noteon 04-11-2024 Family Medicine Office/Clinic Note Family Medicine Office/Clinic Note HPI Staff Jewell is a 28 year old female presenting with cough, congestion, Onset; Has had cough for about a month, was seen in UC on dx'd with bronchiolitis tx'd with albuterol, [...] day(s), # 6 tab(s), Refills(s) 0, Pharmacy: [facility]/pharmacy #[id number], 167.6, cm, 04/11/24 14:44:00 EDT, Height/Length Dosing, 72.5, kg, 04/11/24 14:44:00 EDT, Weight Dosing 2. BMI 25.0-25.9,adult (Z68.25: Body mass index [BMI] 25.0-25.9, adult) BMI education given Ordered: azithromycin, = 1 packet(s), Oral, As Directed, as directed on package labeling, X 5 day(s), # 6 tab(s), Refills(s) 0, Pharmacy: [facility]/pharmacy #[id number], 167.6, cm, 04/11/24 14:44:00 EDT, Height/Length Dosing, 72.5, kg, 04/11/24 14:44:00 EDT, Weight Dosing 3. Non-smoker (Z78.9: Other specified health status) continue not smoking Ordered: azithromycin, = 1 packet(s), Oral, As Directed, as directed on package labeling, X 5 day(s), # 6 tab(s), Refills(s) 0, Pharmacy: [facility]/pharmacy #[id number], 167.6, cm, 04/11/24 14:44:00 EDT, Height/Length Dosing, 72.5, kg, 04/11/24 14:44:00 EDT, Weight Dosing 4. Overweight (BMI 25.0-29.9) (E66.3: Overweight) see above Ordered: azithromycin, = 1 packet(s), Oral, As Directed, as directed on package labeling, X 5 day(s), # 6 tab(s), Refills(s) 0, Pharmacy: [facility]/pharmacy #[id number], 167.6, cm, 04/11/24 14:44:00 EDT, [...] - Not Given Postpone due to refusal [facility] Comment on above: Result Comment: Elec tronically Signed By: Dana Pastor\.br\Date and Time Signed: 04/11/24 14:57 EDT Urinalysis - AUTOMATEDon Appearance (U) cloudy [employer] Other Bilirubin Ql (U) Negative [employer] Other Color (U) light yellow [facility] Other Glucose Ql (U) Negative [employer] Other Hemoglobin Ql (U) trace [employer] Other Ketones Ql (U) Negative [employer] Other Leukocyte esterase Test strip Ql (U) small [facility] Other Nitrite Ql (U) neative [employer] Other pH (U) 6.5 [pH] [employer] Other Protein Ql (U) Negative [employer] Other Specific gravity (U) [Rel density] 1.010 [facility] Other Urobilinogen (U) [Mass/Vol] 0.2 mg/dL [facility] Other Urinalysis - AUTOMATED [facility] Other Urine Cultureon 05-11-2023 Bacteria identified Cx Nom (U) 50,000 colonies/ml mixed bacterial skin contaminants 2 Days PERFORMED BY: [facility] [address] [place] [address] PATHOLOGIST COMPLIANCE QUALITY PERFORMANCE ANALYST BRADFORD ANNE M.D. Normal [facility] Comment on above: Performed By: #### C UU #### [facility] [address] [place] [address] [facility] Bacteria identified Cx Nom (U) [facility] Other CHEMISTRYOrdered By: SYSTEM SYSTEM on 01-30-2023 Albumin [...] 6.1 E9/L Normal 2.0 - 7.5 E9/L [facility] HEMATOLOGYOrdered By: Maria Alejandra Fitch on 01-30-2023 Erythrocyte distribution width (RBC) [Ratio] 13.6 % Normal 10.9 - 14.2 % [facility] Hematocrit (Bld) [Volume fraction] 41.3 % Normal 34.0 - 46.0 % [facility] S Hemoglobin (Bld) [Mass/Vol] 13.9 g/dL Normal 12.0 - 16.0 gm/dL [facility] MCH (RBC) [Entitic mass] 29.2 pg Normal 27.0 - 34.0 pg [facility] MCHC (RBC) [Mass/Vol] 33.6 g/dL Normal 31.4 - 36.0 gm/dL [facility] MCV (RBC) [Entitic vol] 86.8 fL Normal 80.0 - 100.0 fL [facility] Platelet mean volume (Bld) [Entitic vol] 9.7 fL Normal 6.4 - 10.8 fL [facility]eAut oSS Platelets (Bld) [#/Vol] 257.0 E9/L Normal 150.0 - 500.0 E9/L [facility] RBC (Bld) [#/Vol] 4.8 E12/L Normal 4.3 - 5.9 E12/L [facility] WBC corrected for nucl RBC Auto (Bld) [#/Vol] 8.6 E9/L Normal 4.0 - 11.0 E9/L [facility] CULTURE WOUNDon 11-10-2022 CULTURE WOUND Culture Observations: IN PROCESS. Isolate 1 Streptococcus constellatus Moderate growth of Normal [facility] Comment on above: Performed By: #### W OUNDCX #### [facility] [address] [place] [address] Dr. Dalton Puckett PAP ACOG PANEL 2: 21 to 29on 03-13-2022 . . Normal [facility] Comment on above: Performed By: #### [id number] #### [facility] [address] [place] [address] Dr. Dalton Puckett Age Gdln ACOG Testing 21-29 [facility] Comment on above: Performed By: #### [id number] #### [facility] [address] [place] [place] [address] Dr. Dalton Puckett DIAGNOSIS: Comment Normal [facility] Comment on above: Result Comment: NEGA TIVE FOR INTRAEPITHELIAL LESION OR MALIGNANCY. Performed By: #### [id number] #### [facility] [address] [place] [address] Dr. Dalton Puckett Methodology: Comment [facility] Comment on above: Result Comment: This liquid based ThinPrep(R) pap test was screened with the use of an image guided system. Performed By: #### [id number] #### [facility] [address] [place] [address] Dr. Dalton Puckett Note: Comment [facility] Comment on above: Result Comment: The Pap smear is a screening test designed to aid in the detection of premalignant and malignant conditions of the uterine cervix. It is not a diagnostic procedure and should not be used as the sole means of detecting cervical cancer. Both false-positive and false-negative reports do occur. . Performed By: #### [id number] #### [facility] [address] [place] [address] Dr. Dalton Puckett Performed by: Comment Normal [facility] Comment on above: Result Comment: Capri Peterson, Funeral Pre Need Consultant (ASCP) Performed By: #### [id number] #### [facility] [address] [place] [address] Dr. Dalton Puckett Reflex Criteria: Comment [facility] Comment on above: Result Comment: The HPV DNA reflex criteria were not met with this specimen result therefore, no HPV testing was performed. . Performed By: #### [id number] #### [facility] [address] [place] [address] Dr. Dalton Puckett Specimen adequacy: Comment Normal [facility] Comment on above: Result Comment: Sati sfactory for evaluation. Endocervical and/or squamous metaplastic cells (endocervical component) are present. Performed By: #### [id number] #### [facility] [address] [place] [address] Dr. Dalton CHAN Quick Testingon 2021 Result neagtive [facility] Other Quick Fluon 09-23-2021 FLUAV Ab CF (S) [Titer] Negative [facility] Other FLUBV Ab CF (S) [Titer] Negative [facility] Other Vital Signs Date Time Vital Sign Value Performing Clinician Facility 08-11-2024 14:14-0500 Body height 167.6 cm Layo Gautam DPM Work Phone: [facility] 08-11-2024 14:14-0500 Body mass index (BMI) [Ratio] 25.82 kg/m2 Layo Gautam DPM Work Phone: [facility] 08-11-2024 14:14-0500 Body weight 72.58 kg Layo Gautam DPM Work Phone: [facility] 05-19-2024 10:32-0500 Body height 154.9 cm Layomaricruz Gautam DPM Work Phone: [facility] 05-19-2024 10:32-0500 Body mass index (BMI) [Ratio] 30.42 kg/m2 Layo Gautam DPM Work Phone: [facility] 05-19-2024 10:32-0500 Body weight 73.03 kg Layomaricruz Gautam DPM Work Phone: [facility] 05-10-2024 11:31-0500 Blood Pressure Location LA SCHERER [facility] 05-10-2024 11:31-0500 Body temperature 98.6 [degF] LA SCHERER [facility] 05-10-2024 11:31-0500 Diastolic blood pressure 80 mm[Hg] LA SCHERER [facility] 05-10-2024 11:31-0500 Heart rate 83 /min LA SCHERER [facility] 05-10-2024 11:31-0500 Respiratory rate 16 /min LA SCHERER [facility] 05-10-2024 11:31-0500 Systolic blood pressure 106 mm[Hg] LA SCHERER [facility] 05-04-2024 14:38-0500 Body height 167.6 cm Layo Gautam DPM Work Phone: [facility] 05-04-2024 14:38-0500 Body mass index (BMI) [Ratio] 25.99 kg/m2 Layomaricruz Gautam DPM Work Phone: [facility] 05-04-2024 14:38-0500 Body weight 73.03 kg Laoymaricruz Gautam DPM Work Phone: [facility] 04-19-2024 09:11-0500 Body mass index (BMI) [Ratio] 25.99 kg/m2 Yesica STEWART Work Phone: [facility] 04-19-2024 09:11-0500 Body weight 73.03 kg Yesica STEWART Work Phone: [facility] 04-19-2024 09:11-0500 Diastolic blood pressure 50 mm[Hg] Yesica STEWART Work Phone: [facility] 04-19-2024 09:11-0500 Systolic blood pressure 100 mm[Hg] Yesica STEWART Work Phone: [facility] 07-16-2023 09:27-0500 Body height 167.6 cm Layo Gautam DPM Work Phone: [facility] [employer] 07-16-2023 09:27-0500 Body mass index (BMI) [Ratio] 23.4 kg/m2 Layo Gautam DPM Work Phone: [facility] [employer] 07-16-2023 09:27-0500 Body weight 65.77 kg Layo Gautam DPM Work Phone: [facility] 05-11-2023 10:20-0500 Body height 170.18 cm Barbra Davis Other [facility] Other 05-11-2023 10:20-0500 Body mass index (BMI) [Ratio] 22.39 kg/m2 Barbra Davis Other [facility] Other 05-11-2023 10:20-0500 Body temperature 99.1 [degF] Barbra Davis Other [facility] Other 05-11-2023 10:20-0500 Body weight 64.86 kg Barbra Davis Other [facility] Other 05-11-2023 10:20-0500 Respiratory rate 19 /min Barbra Davis Other [facility] Other 05-11-2023 10:20-0500 SaO2% (BldA) [Mass fraction] 99 % Barbra Davis Other [facility] Other 03-21-2023 12:15-0400 Body height 170.18 cm Juliette Marquez Other [facility] Other 03-21-2023 12:15-0400 Body mass index (BMI) [Ratio] 23.46 kg/m2 Juliette Marquez Other [facility] Other 03-21-2023 12:15-0400 Body temperature 99 [degF] Juliette Marquez Other [facility] Other 03-21-2023 12:15-0400 Body weight 67.95 kg Juliette Marquez Other [facility] Other 03-21-2023 12:15-0400 Respiratory rate 18 /min Juliette Marquez Other [facility] Other 03-21-2023 12:15-0400 SaO2% (BldA) [Mass fraction] 99 % Juliette Marquez Other [facility] Other 02-25-2023 14:27-0400 Blood Pressure Location [facility] [place] 02-25-2023 14:27-0400 Body temperature 60.8 [degF] Sher [email or web address] [place] 02-25-2023 14:27-0400 Diastolic blood pressure 78 mm[Hg] Sher NILL [facility] [place] 02-25-2023 14:27-0400 Heart rate 70 /min Sher [email or web address] [place] 02-25-2023 14:27-0400 Respiratory rate 16 /min Shre [email or web address] [place] 02-25-2023 14:27-0400 Systolic blood pressure 122 mm[Hg] Sher NILL [facility] [place] 09-28-2021 11:00-0400 Body height 170.18 cm Barbra Davis Other [facility] Other 09-28-2021 11:00-0400 Body mass index (BMI) [Ratio] 22.71 kg/m2 Barbra Davis Other [facility] Other 09-28-2021 11:00-0400 Body temperature 96.8 [degF] Barbra Davis Other [facility] Other 09-28-2021 11:00-0400 Body weight 65.77 kg Barbra Davis Other [facility] Other 09-28-2021 11:00-0400 SaO2% (BldA) [Mass fraction] 98 % Barbra Davis Other [facility] Other 09-23-2021 13:50-0400 Body height 170.18 cm Jaye Riki Other [facility] Other 09-23-2021 13:50-0400 Body mass index (BMI) [Ratio] 22.71 kg/m2 Jaye Riki Other [facility] Other 09-23-2021 13:50-0400 Body temperature 101.3 [degF] Jaye Riki Other [facility] Other 09-23-2021 13:50-0400 Body weight 65.77 kg Jaye Riki Other [facility] Other 09-23-2021 13:50-0400 SaO2% (BldA) [Mass fraction] 98 % Jaye Lyn Other [facility] Other Encounters Encounter Date Encounter Type Care Provider Facility Start: 08-23-2024 End: 08-23-2024 ambulatory Dana Cazares Facility:[facility] Start: 08-11-2024 End: 08-11-2024 Office outpatient visit 15 minutes Layo Gautam DPM Work Phone: [facility] Comment on above: Dermatophytosis of n ail (Primary Dx); Dystrophic nail; Pain around toenail Start: 08-11-2024 End: 08-11-2024 ambulatory LAYO GAUTAM Not Available Start: 08-11-2024 End: 08-11-2024 Bamboo flowsheet Layo Gautam DPM Work Phone: [facility] Start: 08-11-2024 End: 08-11-2024 Bamboo flowsheet Layo Gautam DPM Work Phone: [facility] Start: 07-27-2024 End: 07-27-2024 ambulatory Dana Cazares Facility:[facility] Start: 05-19-2024 End: 05-19-2024 Bamboo flowsheet Layo Gautam DPM Work Phone: [facility] Start: 05-19-2024 End: 05-19-2024 Bamboo flowsheet Layo Gautam DPM Work Phone: [facility] Start: 05-19-2024 End: 05-19-2024 Office outpatient visit 15 minutes Layo Gautam DPM Work Phone: [facility] Comment on above: Paronychia of great toe of right foot (Primary Dx); Pain of right great toe; Onychocryptosis; Difficulty walking Start: 05-19-2024 End: 05-19-2024 ambulatory LAYO GAUTAM Not Available Start: 05-10-2024 End: 05-10-2024 ambulatory LA SCHERER Facility:[facility] Start: 05-10-2024 End: 05-10-2024 Patient encounter procedure LA SCHERER [facility] Start: 05-04-2024 End: 05-04-2024 Office outpatient visit 15 minutes Layo Gautam DPM Work Phone: [facility] Comment on above: Dermatophytosis of n ail (Primary Dx); Dystrophic nail; Pain around toenail; Onychocryptosis Start: 05-04-2024 End: 05-04-2024 ambulatory LAYO GAUTAM Not Available Start: 05-04-2024 End: 05-04-2024 Bamboo flowsheet Layo Gautam DPM Work Phone: [facility] Start: 05-04-2024 End: 05-04-2024 Bamboo flowsheet Layo Gautam DPM Work Phone: [facility] Start: 04-29-2024 ambulatory Dana Cazares Facility:[facility] Start: 04-20-2024 End: 04-20-2024 Clinisync Result Encounter Yesica STEWART Work Phone: [facility] Unsolicited Start: 04-20-2024 End: 04-20-2024 Clinisync Result Encounter Yesica STEWART Work Phone: [facility] Start: 04-19-2024 End: 04-19-2024 Bamboo flowsheet Yesica STEWART Work Phone: [facility] Start: 04-19-2024 End: 04-23-2024 Bamboo flowsheet Yesica STEWART Work Phone: [facility] Start: 04-19-2024 End: 04-23-2024 Clinisync Result Encounter Yesica STEWART Work Phone: [facility] Unsolicited Start: 04-19-2024 End: 04-19-2024 Patient encounter procedure Yesica STEWART Work Phone: [facility] Work Phone: Start: 04-19-2024 End: 04-19-2024 Periodic preventive med est patient 18-39 yrs Yesica STEWART Work Phone: [facility] Comment on above: Well woman exam with routine gynecological exam; Frequent urination Start: 04-19-2024 End: 04-19-2024 ambulatory YESICA SALDIVAR Not Available Start: 04-11-2024 End: 04-11-2024 ambulatory Dana L Debora Facility:[facility] Start: 01-27-2024 End: 01-27-2024 ambulatory LAYO GAUTAM Not Available Start: 11-23-2023 End: 11-23-2023 ambulatory Dana L Debora Facility:[facility] Start: 10-21-2023 End: 10-21-2023 ambulatory LAYO GAUTAM Not Available Start: 07-16-2023 End: 07-16-2023 Office outpatient visit 15 minutes Layo Gautam DP Work Phone: [facility] Comment on above: Onychocryptosis (Miguelina sirena Dx); Paronychia of great toe of right foot; Pain of right great toe; Difficulty walking Start: 05-12-2023 End: 05-12-2023 ambulatory Barbra Davis Other [facility] Other Start: 05-12-2023 Telephone encounter Barbra Davis [facility] Start: 05-11-2023 Office outpatient vi sit 15 minutes Barbra Davis [facility] Start: 05-11-2023 End: 05-11-2023 ambulatory Barbra Davis [facility] Other Start: 03-21-2023 End: 03-21-2023 ambulatory Juliette Marquez Other [facility] Other Start: 03-21-2023 Office outpatient vi sit 15 minutes Juliette Marquez [facility] Start: 03-18-2023 End: 03-18-2023 Lab Drop off Dana L Debora [facility] Start: 02-25-2023 End: 02-25-2023 Patient encounter procedure Sher FINE [facility]ibal [facility] Start: 01-30-2023 End: 01-30-2023 Lab Drop off Dana Cazares [facility] Start: 11-10-2022 End: 11-10-2022 ambulatory KETTY CLEMENS . Facility:[facility] Start: 03-05-2022 End: 03-05-[address] TERESITA MCNULTY . Facility:[facility] Start: 09-28-2021 End: 09-28-2021 ambulatory Barbra Davis Other [facility] Other Start: 09-28-2021 Office outpatient vi sit 15 minutes Barbra Davis [facility] Start: 09-23-2021 End: 09-23-2021 ambulatory Jaye Lyn Other [facility] Other Start: 09-23-2021 Office outpatient vi sit 25 minutes Jaye Lyn [facility] Procedures Date Procedure Procedure Detail Performing Clinician Start: 04-20-2024 MLR HEMOGLOBIN A1C Yesica STEWART Work Phone: Start: 04-19-2024 IGP,APTIMA HPV,AGE GDLN Yesica STEWART Work Phone: Start: 11-10-2022 Pilonidal cyst (morphologic abnormality) Dana Cazares Cyst of ovary (disorder) FIDE SCHERER Headache (finding) LA SCHERER Polycystic ovary syndrome JE SAMMIE SCHERER Reattachment of finger Ludwig carbone BABATUNDE Plan of Treatment Date Care Activity Detail Author Start: 04-24-2025 End: 04-24-2025 Patient encounter procedure 04/24/2025 10:00 AM EST Office Visit [facility] [address] [place] [address] [place] [address] Yesica Saldivar PA [address] [place] [address] [place] [address] [facility] Start: 11-16-2024 End: 11-16-2024 Patient encounter procedure 11/16/2024 9:30 AM EDT Office Visit [facility] [address] [place] [id number] Layo Gautam, DPM [address] [place] [address] [facility] Start: 08-11-2024 End: 08-11-2024 Patient encounter procedure [facility] Comment on above: Arrived Start: 05-19-2024 End: 05-19-2024 Patient encounter procedure 05/19/2024 10:30 AM EST [facility] [address] [place] [phone] Layo Gautam, DPM [address] [place], [place] [id number] Arrived [facility] Comment on above: Arrived Start: 05-04-2024 End: 05-04-2024 Patient encounter procedure [facility] Comment on above: Arrived Start: 04-19-2024 End: 04-19-2025 CBC W Auto Differential panel - Blood CBC and differential Lab Routine Well woman exam with routine gynecological exam Expected: 04/19/2024 (Approximate), Expires: 04/19/2025 [facility] Comment on above: Expected: 04/19/2024 (Approximate), Expires: 04/19/2025 Start: 04-19-2024 End: 04-19-2025 Comprehensive metabolic 2000 panel - Serum or Plasma Comprehensive metabolic panel Lab Routine Well woman exam with routine gynecological exam Expected: 04/19/2024 (Approximate), Expires: 04/19/2025 [facility] Comment on above: Expected: 04/19/2024 (Approximate), Expires: 04/19/2025 Start: 04-19-2024 End: 04-19-2025 Hemoglobin A1c/Hemoglobin.total in Blood Hemoglobin A1c Lab Routine Well woman exam with routine gynecological exam Expected: 04/19/2024 (Approximate), Expires: 04/19/2025 [facility] Comment on above: Expected: 04/19/2024 (Approximate), Expires: 04/19/2025 Start: 04-19-2024 End: 04-19-2025 Lipid 1996 panel - Serum or Plasma Lipid panel Lab Routine Well woman exam with routine gynecological exam Expected: 04/19/2024 (Approximate), Expires: 04/19/2025 [facility] Comment on above: Expected: 04/19/2024 (Approximate), Expires: 04/19/2025 Start: 04-19-2024 End: 04-19-2025 Thyrotropin [Units/volume] in Serum or Plasma TSH Lab Routine Well woman exam with routine gynecological exam Expected: 04/19/2024 (Approximate), Expires: 04/19/2025 [facility] Comment on above: Expected: 04/19/2024 (Approximate), Expires: 04/19/2025 Start: 04-19-2024 End: 04-19-2025 Urinalysis complete panel - Urine Urinalysis with reflex microscopic Lab Routine Frequent urination Expected: 04/19/2024 (Approximate), Expires: 04/19/2025 [facility] Comment on above: Expected: 04/19/2024 (Approximate), Expires: 04/19/2025 Start: 04-19-2024 End: 04-19-2024 Patient encounter procedure [facility] Comment on above: Arrived Start: 10-21-2023 End: 10-21-2023 Patient encounter procedure 10/21/2023 3:15 PM EDT Office Visit [facility] [address] [place] [address] Layo Gautam, MAXINE [address] [place] [id number] [facility] Cytology Cervical or vaginal smear or scraping study Pap Smear Pathology and Cytology Routine Well woman exam with routine gynecological exam Ordered: 04/19/2024 [facility] Work Phone: Comment on above: Ordered: 04/19/2024 Immunizations Immunization Date Immunization Notes Care Provider Selina cheng NEGATED: Highlighted row has not occurred!05-05-2023 influenza virus vaccine, unspecified formulation LA SCHERER [facility] [place] Payers Date Payer Category Payer [employer] [place] [employer] [id number] 2023 Unknown BCBS BCBS [id number] [id number] 2023-Present [id number] [place], [place] [id number] [id number] 1996 Unknown [id number] 2.16.840.1.340995.3.579. 2.593 1996 Unknown [id number] 2.16.840.1.744765.3.579. 2.593 1996 Unknown [id number] 2.16.840.1.172730.3.579. 2.1259 1996 Unknown [id number] 2.16.840.1.230232.3.579. 2.1259 1996 Unknown [id number] 2.16.840.1.689347.3.579. 2.1259 1996 Unknown [id number] 2.16.840.1.095612.3.579. 2.1259 1996 Unknown [id number] 2.16.840.1.586293.3.579. 2.1259 1996 Unknown [id number] 2.16.840.1.833152.3.579. 2.1259 1996 Unknown [id number] 2.16.840.1.443589.3.579. 2.727 1996 Unknown [id number] 2.16.840.1.242665.3.579. 2.727 1996 Unknown [id number] 2.16.840.1.208554.3.579. 2.727 1996 Unknown [id number] 2.16.840.1.134267.3.579. 2.727 1996 Unknown [id number] 2.16.840.1.548644.3.579. 2.727 1959 [facility] Blue [facility] [id number] 1959 Self-pay [employer] [place] [employer] [id number] [id number]. Unknown [id number] 2.16.840.1.902494.3.579. 2.531 Social History Date Type Detail Facility Unknown if ever smoked [facility] Other Start: 06-18-2023 End: 01-27-2024 Sex Assigned At [facility] Start: 01-30-2023 End: 03-10-2023 Tobacco smoking status Never smoked tobacco (finding) [facility] Tobacco smoking status Never [facility] Start: 03-10-2023 Tobacco use and exposure Smokeless tobacco non-user [facility] Start: 07-16-2023 End: 08-11-2024 Alcohol intake Current drinker of alcohol (finding) [...] Sex Assigned At Not on file [facility] Functional Status Date Assessment Result Facility 05-10-2024 Functional Status N/A [facility] 02-25-2023 Functional Status N/A [facility] Clinical Notes 09-23-2021 to 08-11-2024 Layo Gautam, CASE - 08/11/2024 2:15 PM ESTPatient InstructionsStashwin Gautam, MAXINE - 05/19/2024 10:30 AM ESTPatient InstructionsStashwin Gautam, MAXINE - 05/04/2024 2:45 PM ESTPatient Instructions Note Date & Type Note Facility 08-11-2024 History of Present illness Narrative Images from the original note were not included. Subjective Patient ID: Jewell Richardson is a 28 y.o. female who presents for Lamisil FUV ( Jewell Richardson is a 28 y.o. female who presents for FUV of Lamisil. Patient relates very slow progress. ). HPI Follow-up assessment: Onychodystrophy/mycosis bilateral great toes. Patient completed most recent 90 day course oral Lamisil therapy end of June 2023. Reports no adverse effects. Relates continued improvement from baseline; albeit with some degree of recalcitrance. Reports good compliance with adjunctive topical care measures. Generally well satisfied with response and progress to date. Mildly symptomatic over the past several weeks or so. Denies bleeding or drainage. Patient well satisfied with Powerstep orthoses. Medications Current Outpatient Medications: ibuprofen 800 MG tablet, Take 800 mg by mouth every 8 (eight) hours. PRN, Disp: , Rfl: levonorgestrel-ethinyl estradiol (Seasonale) 0.15-0.03 MG tablet, Take 1 tablet by mouth in the morning., Disp: , Rfl: Allergies Patient has no known allergies. Past Surgical History History reviewed. No pertinent surgical history. Family History Family History Problem Relation Name Age of Onset Diabetes Paternal Grandfather Cancer Other Objective General Examination: GENERAL EXAMINATION: alert and oriented. Pleasant disposition. Vascular: DORSALIS PEDIS PULSE: 2/4, bilaterally. POSTERIOR TIBIAL PULSE: 2/4, bilaterally. TEMPERATURE GRADIENT: warm to warm. EDEMA: Unremarkable for ankle edema. CAPILLARY FILLING TIME(sec): capillary fill intact bilateral digits less than 3 secs. Neurologic: SHARP SENSATION: tactile and light touch sensation intact. Dermatologic: SKIN FINDINGS: skin turgor is good. HYPERTROPHIC LESION: no forefoot or digital discrete keratotic lesions are noted. NAIL PATHOLOGY: Right great toe: Estimate 15-20 % persistent DSO deformity; with distal subungual keratotic and mycotic debris. The margins are incurvated, mildly keratotic, non-inflamed, non-tender; without drainage. Left great toe: Maintains near-complete proximal nail plate clearing; with slight residual DSO deformity. There remains distal subungual and marginal keratotic and mycotic debris. Unremarkable for drainage. MYCOSIS SCALE: total with debris; bilateral great toes at baseline. INTERDIGITAL MACERATION: clean, dry, non-inflamed. Orthopedic: JOINT RANGE OF MOTION: functional ankle, subtalar, midtarsal and MTP joint range of motion. DEFORMITIES: no obvious or distinct forefoot or digital deformities are noted. MUSCLE STRENGTH: no focal deficits. Radiology: Assessment/Plan Recalcitrant, persistent DSO deformity bilateral great toes. Completed most recent 90 day course of oral terbinafine therapy in June of 2023; without adverse effects. Plantar myofasciitis symptoms of the right foot; effectively resolved with Powerstep orthoses. Plan: Notes: review of clinical findings, differential diagnosis, recalcitrant nature of condition left great toe, overall response to date, treatment strategy and objectives. Positive dermatophyte identification by history. [place] agreement for another 90 day course of oral terbinafine therapy. Review of overall efficacy with oral Lamisil therapy, benefit/risk profile, anticipated time frame for effective nail plate clearing, potential for recalcitrance and/or relapse. Adjunctive topical care: Fungi foam 1%, preceded by use of vinegar and/or Listerine as directed; encompassing cuticle massage. Hygiene and skin care measures discussed. Procedure: Toenail Debridement: Aseptic technique: power/manual instrumentation: onychodebridement length and thickness, curretage of offending crypotic margins, renny-ungual debris, providing effective pressure and symptom relief, reducing shoe and digital trauma; reducing fungal reservoir. This note was created with the assistance of a speech recognition program. While intending to generate a timely document that accurately reflects the content of the visit, no guarantee can be provided that every grammatical or spelling mistake has been or will be identified or corrected. Thank you for your understanding. Layo Gautam DPM documented in this encounter [facility] 08-11-2024 Instructions Layo Gautam DPM - 08/11/2024 2:15 PM EST As noted documented in this encounter [facility] 05-19-2024 History of Present illness Narrative Images from the original note were not included. Subjective Patient ID: Jewell Richardson is a 28 y.o. female who presents for Ingrown Toenail (Established pt presents today with possible ingrown nail medial margin RGT, pt states usually bothers her at work, has been doing cuticle massage, and soaking in epsom salts. Started to become bothersome on Thursday. ). HPI Presents today on a somewhat urgent basis. Chief complaint: Painful and locally reddened ingrown toenail medial margin of the right great toe; which has developed over the past several days. Patient denies injury or trauma. Relates no recent change in activity or shoe gear. Denies swelling, bleeding or drainage. Medications Current Outpatient Medications: ibuprofen 800 MG [...] Grandfather Cancer Other Objective General Examination: GENERAL EXAMINATION: alert and oriented. Pleasant disposition. Vascular: DORSALIS PEDIS PULSE: 2/4, bilaterally. POSTERIOR TIBIAL PULSE: 2/4, bilaterally. TEMPERATURE GRADIENT: warm to warm. EDEMA: Unremarkable for ankle edema. CAPILLARY FILLING TIME(sec): capillary fill intact bilateral digits less than 3 secs. Neurologic: SHARP SENSATION: tactile and light touch sensation intact. Dermatologic: SKIN FINDINGS: skin turgor is good. HYPERTROPHIC LESION: no forefoot or digital discrete keratotic lesions are noted. NAIL PATHOLOGY: Right great toe: maintains effective near complete clearing of the nail plate; with mild residual DSO relapse. The medial nail plate margin is incurvated; the paronychial margin is tender and mildly inflamed (blanchable); without drainage, abscess formation or clinical evidence of infection.. Left great toe: Maintains near-complete proximal nail plate clearing; with slight residual DSO deformity. There remains distal subungual and marginal keratotic and mycotic debris. Unremarkable for drainage. MYCOSIS SCALE: total with debris; bilateral great toes at baseline. INTERDIGITAL MACERATION: clean, dry, non-inflamed. Orthopedic: JOINT RANGE OF MOTION: functional ankle, subtalar, midtarsal and MTP joint range of motion. DEFORMITIES: no obvious or distinct forefoot or digital deformities are noted. MUSCLE STRENGTH: no focal deficits. Radiology: Assessment/Plan Recalcitrant/persistent symptomatic onychodystrophy/mycosis left great toe; favorable interval clinical improvement from baseline noted. Effective nail plate clearing right great toe; responding favorably to oral terbinafine therapy. Plantar myofasciitis symptoms of the right foot; particularly with work activity; effectively resolved with Powerstep orthoses. Onychocryptosis with mild paronychia medial margin right great toe; chronic by history. Plan: Notes: review of clinical findings, suspected etiology and contributing/aggravating factors, treatment strategy and objectives. Right great toe: Aseptic technique: Debridement and curettage of the offending incurvated medial margin; providing favorable pressure and symptom relief Instructions on cuticle massage. Continue topical care measures: Fungi foam 1%, preceded by use of vinegar and/or Listerine as directed; encompassing cuticle massage. Hygiene and skin care measures discussed. Briefly discussed medial marginal matricectomy/phenol technique right great toe for consideration. Procedure: This note was created with the assistance of a speech recognition program. While intending to generate a timely document that accurately reflects the content of the visit, no guarantee can be provided that every grammatical or spelling mistake has been or will be identified or corrected. Thank you for your understanding. Layo Gautam DPM documented in this encounter [facility] 05-19-2024 Instructions Layo Gautam DPM - 05/19/2024 10:30 AM EST As noted documented in this encounter [facility] 05-11-2024 Note Patient Education Urology Urinary Frequency, Adult Urinary frequency means urinating more often than usual. You may urinate every 1?2 hours even though you drink a normal amount of fluid and do not have a bladder infection or condition. Although you urinate more often than normal, the total amount of urine produced in a day is normal. With urinary frequency, you may have an urgent need to urinate often. The stress and anxiety of needing to find a bathroom quickly can make this urge worse. This condition may go away on its own, or you may need treatment at home. Home treatment may include bladder training, exercises, taking medicines, or making changes to your diet. Follow these instructions at home: Bladder health Your health care provider will tell you what to do to improve bladder health. You may be told to: ??? Keep a bladder diary. Keep track of: ? What you eat and drink. ? How often you urinate. ? How much you urinate. ??? Follow a bladder training program. This may include: ? Learning to delay going to the bathroom. ? Double urinating, also called voiding. This helps if you are not completely emptying your bladder. ? Scheduled voiding. ??? Do Kegel exercises. Kegel exercises strengthen the muscles that help control urination, which may help the condition. Eating and drinking Follow instructions from your health care provider about eating or drinking restrictions. You may be told to: ??? Avoid caffeine. ??? Drink fewer fluids, especially alcohol. ??? Avoid drinking in the evening. ??? Avoid foods or drinks that may irritate the bladder. These include coffee, tea, soda, artificial sweeteners, citrus, tomato-based foods, and chocolate. ??? Eat foods that help prevent or treat constipation. Constipation can make urinary frequency worse. You may need to take these actions to prevent or treat constipation: ? Drink enough fluid to keep your urine pale yellow. ? Take dwpe-axw-mahbzuv or prescription medicines. ? Eat foods that are high in fiber, such as beans, whole grains, and fresh fruits and vegetables. ? Limit foods that are high in fat and processed sugars, such as fried or sweet foods. General instructions ??? Take ofgz-mev-ahmzhvo and prescription medicines only as told by your health care provider. ??? Keep all follow-up visits. This is important. Contact a health care provider if: ??? You start urinating more often. ??? You feel pain or irritation when you urinate. ??? You notice blood in your urine. ??? Your urine looks cloudy. ??? You develop a fever. ??? You begin vomiting. Get help right away if: ??? You are unable to urinate. Summary ??? Urinary frequency means urinating more often than usual. With urinary frequency, you may urinate every 1?2 hours even though you drink a normal amount of fluid and do not have a bladder infection or other bladder condition. ??? Your health care provider may recommend that you keep a bladder diary, follow a bladder training program, or make dietary changes. ??? If told by your health care provider, do Kegel exercises to strengthen the muscles that help control urination. ??? Take gnby-ctd-itourhy and prescription medicines only as told by your health care provider. ??? Contact a health care provider if your symptoms do not improve or get worse. This information is not intended to replace advice given to you by your health care provider. Make sure you discuss any questions you have with your health care provider. Document Revised: 01/04/2021 Document Reviewed: 01/04/2021 [employer] Patient Education ? 2023 [employer]. [facility] 05-04-2024 History of Present illness Narrative Images from the original note were not included. Subjective Patient ID: Jewell Richardson is a 28 y.o. female who presents for Lamisil (Jewell Richardson is a 28 y.o. female, Established pt presents today for lamisil fuv, MARIUSZT. Pt relates nail is looking a lot better.). HPI Follow-up assessment: Onychodystrophy/mycosis bilateral great toes. Patient completed most recent 90 day course oral Lamisil therapy end of June 2023. Reports no adverse effects. Relates continued improvement from baseline; particularly with the left great toe since last visit. Reports good compliance with adjunctive topical care measures. Generally well satisfied with response and progress to date. Patient well satisfied with Powerstep orthoses; comments I love them . Medications Current Outpatient Medications: ibuprofen 800 MG tablet, Take 800 mg by mouth every 8 (eight) hours. PRN, Disp: , Rfl: levonorgestrel-ethinyl estradiol (Seasonale) 0.15-0.03 MG tablet, Take 1 tablet by mouth in the morning., Disp: , Rfl: Allergies Patient has no known allergies. Past Surgical History History reviewed. No pertinent surgical history. Family History Family History Problem Relation Name Age of Onset Diabetes Paternal Grandfather Cancer Other Objective General Examination: GENERAL EXAMINATION: alert and oriented. Pleasant disposition. Vascular: DORSALIS PEDIS PULSE: 2/4, bilaterally. POSTERIOR TIBIAL PULSE: 2/4, bilaterally. TEMPERATURE GRADIENT: warm to warm. EDEMA: Unremarkable for ankle edema. CAPILLARY FILLING TIME(sec): capillary fill intact bilateral digits less than 3 secs. Neurologic: SHARP SENSATION: tactile and light touch sensation intact. Dermatologic: SKIN FINDINGS: skin turgor is good. HYPERTROPHIC LESION: no forefoot or digital discrete keratotic lesions are noted. NAIL PATHOLOGY: Right great toe: maintains effective near complete clearing of the nail plate; with mild residual DSO relapse. Left great toe: Maintains near-complete proximal nail plate clearing; with slight residual DSO deformity. There remains distal subungual and marginal keratotic and mycotic debris. Unremarkable for drainage. MYCOSIS SCALE: total with debris; bilateral great toes at baseline. INTERDIGITAL MACERATION: clean, dry, non-inflamed. Orthopedic: JOINT RANGE OF MOTION: functional ankle, subtalar, midtarsal and MTP joint range of motion. DEFORMITIES: no obvious or distinct forefoot or digital deformities are noted. MUSCLE STRENGTH: no focal deficits. Radiology: Assessment/Plan Recalcitrant/persistent symptomatic onychodystrophy/mycosis left great toe; favorable interval clinical improvement from baseline noted. Effective nail plate clearing right great toe; responding favorably to oral terbinafine therapy. Plantar myofasciitis symptoms of the right foot; particularly with work activity; effectively resolved with Powerstep orthoses. Plan: Notes: review of clinical findings, differential diagnosis, recalcitrant nature of condition left great toe, overall response to date, treatment strategy and objectives. Content to continue topical care measures. Positive dermatophyte identification by history. Review of overall efficacy with oral Lamisil therapy, benefit/risk profile, anticipated timeframe for effective nail plate clearing, potential for recalcitrance and/or relapse. Topical care: Fungi foam 1%, preceded by use of vinegar and/or Listerine as directed; encompassing cuticle massage. Hygiene and skin care measures discussed. For consideration, discussed another course of oral terbinafine therapy; mutual agreement to hold and monitor current course at this time. Procedure: Toenail Debridement: Aseptic technique: power/manual instrumentation: onychodebridement length and thickness, curretage of offending crypotic margins, renny-ungual debris, providing effective pressure and symptom relief, reducing shoe and digital trauma; reducing fungal reservoir. This note was created with the assistance of a speech recognition program. While intending to generate a timely document that accurately reflects the content of the visit, no guarantee can be provided that every grammatical or spelling mistake has been or will be identified or corrected. Thank you for your understanding. Layo Gautam DPM documented in this encounter [facility] 05-04-2024 Instructions Layo Gautam DPM - 05/04/2024 2:45 PM EST Topical care measures as noted documented in this encounter [facility] 04-19-2024 History of Present illness Narrative Reason for Appointment: Patient ID: eJwell Richardson is a 28 y.o. female who [...] nursing note reviewed. Exam conducted with a industrial eng present. Vitals: Estimated body mass index is [...] documented in this encounter [facility] 07-16-2023 History of Present illness Narrative Images from the original note [...] documented in this encounter [facility] 07-16-2023 Instructions Layo Gautam DPM - 07/16/2023 9:30 AM EST As noted documented in this encounter [facility] 05-11-2023 Evaluation note Encounter Date Diagnosis Assessment [...] vomiting chills or fevers. Denies any headache. [employer] [facility] Other 10-07-2023 Evaluation note* Encounter Date Diagnosis [...] week. Patient verbalized understanding of treatment plan. [facility] Other 10-04-2023 Evaluation + Plan note Diagnostic Tests Pending * PAP IG w/rflx HPV 03/18/23 [facility]20[facility] Evaluation note* Encounter Date Diagnosis Assessment Notes Treatment Notes Treatment Clinical Notes Sep, Acute sinusitis, recurrence not specified, unspecified location (ICD-10 - J01.90) Drink plenty fluids, get plenty of rest. Take the amoxicillin with clavulanate as prescribed until gone. Take the prednisone as prescribed until gone. Use the Flonase inhaler as prescribed until your symptoms improve. You may continue your hnls-eau-aoxjcml medications as instructed. Follow-up with your family physician if no improvement in 2 to 3 days. [facility] Other 04-11-2022 Evaluation note* Encounter Date Diagnosis [...] primary care provider to discuss antibiotic therapy [place] [employer] Other Evaluation + Plan note No data available for this section [facility] Other Evaluation note* Diagnosis Onychocryptosis- Primary Ingrowing nail Paronychia of great toe of right foot Pain of right great toe Difficulty walking Difficulty in walking documented in this encounter [facility]* Diagnosis Well woman exam with routine gynecological exam Routine gynecological examination Frequent urination Urinary frequency documented in this encounter [facility]* Diagnosis Dermatophytosis of nail- Primary Dystrophic nail Other specified disease of nail Pain around toenail Onychocryptosis Ingrowing nail documented in this encounter [facility] HealthcareEvaluation note* Diagnosis Paronychia of great toe of right foot- Primary Pain of right great toe Onychocryptosis Ingrowing nail Difficulty walking Difficulty in walking documented in this encounter [facility]* Diagnosis Dermatophytosis of nail- Primary Dystrophic nail Other specified disease of nail Pain around toenail documented in this encounter [facility] general Narrative - Reported* Type Description Date Medical History acne Medical History asthma-not confirmed [facility] Other Hospital Discharge instructions No data available for this section [facility] data available for this section [facility] Summary Purpose Family History No Family History Records Found No data available for this section No Family History Records Found No data [...] epsom salts. Reason Comments Well Women Visit Reason Comments Norberto Richardson is a 28 y.o. female, Established pt presents today for lamisil fuv, RGT. Pt relates nail is looking a lot better. Reason Comments Ingrown Toenail Established pt prese nts today with possible ingrown nail medial margin RGT, pt states usually bothers her at work, has been doing cuticle massage, and soaking in epsom salts. Started to become bothersome on Thursday. Reason Comments Lamisil FUV Jewell Richardson is a 28 y.o. female who presents for FUV of Lamisil. Patient relates very slow progress. 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 Relationship Specialty Start Date End Date Lindy Mcgregor MD [address] [place] [address] PCP - General Family Medicine 03/09/23 Professor Of 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 Relationship Specialty Start Date End Date Lindy Mcgregor MD [address] [place] [address] PCP - General Family Medicine 03/09/23 Professor Of 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 Education Relationship Specialty Start Date End Date Lindy Mcgregor MD [address] [place] [address] PCP - General Family Medicine 03/09/23 Professor Of 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 Education Relationship Specialty Start Date End Date Lindy Mcgregor MD [address] [place] [address] PCP - General Family Medicine 03/09/23 Professor Of 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 Education Relationship Specialty Start Date End Date Lindy Mcgregor MD [address] [place] [address] PCP - General Family Medicine 03/09/23 Professor Of 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 Education Relationship Specialty Start Date End Date Lindy Mcgregor MD [address] [place] [address] PCP - General Family Medicine 03/09/23 Professor Of 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 Education Relationship Specialty Start Date End Date Lindy Mcgregor MD [address] [place] [address] PCP - General Family Medicine 03/09/23 FOR [...] BE BASED ON THE PRIMARY CLINICAL RECORDS. [facility] [employer] [facility]. provides no warranty or guarantee of the accuracy or completeness of information in this document.
--- NOTE | 2024-09-01 15:08 | XR_ITS ---
[facility] [place] [id number] Patient Name: SUNNY RICHARDSON MRN: [id number] date: 1995 Sex: F Assigned Patient Location: [facility] Current Patient Location: [facility] Accession/Order Number: [id number] Exam Date: 09/01/2024 15:26 Report Date: 09/01/2024 15:26 At the request of: JESSICA HUGHES Procedure: XR cervical spine 5V CERVICAL SPINE 6 views: CLINICAL HISTORY: Neck Pain COMPARISON: None FINDINGS: Vertebral body disc space heights appear maintained. Facet joints appear unremarkable. Oblique views appear unremarkable. No prevertebral soft tissue swelling. XR/XR cervical spine 5V IMPRESSION: NO ACUTE BONY PROCESS. Impression dictated by: Steven Petersen Jr., D.O.09/01/2024 3:26 PM Dictation Location: [place] [address] Electronically authenticated by: [id number] Date: 09/01/2024 15:26
== END 2024-09-01 14:41 | disposition home or self-care (01) ==
LOC: RAD 14:42
PROVIDERS: PCP Nurse Practitioner; Visit Provider Nurse Practitioner
DX: M54.2 Cervicalgia (principal)
CPT/HCPCS: 72050

== ENCOUNTER 2025-05-04 16:01 | Outpatient (REF) | payer BC, SELFPAY ==
--- OUTSIDE RECORDS SUMMARY | 2025-05-04 15:00 | XMS_ITS | Encounter Summary ---
Author Organization [facility] Address [address] [place] [address] Care Team Providers Care Field Crop Ii Farmworker Name Role Phone Dana Cazares IRRIGATOR OVERHEAD Unavailable Reason for Visit * ReasonCommentsGynecologic Exam Encounter Details DateTypeDepartmentCare Team (Latest Contact Info)Oliqnfoizrb85/20/2025 3:00 PM ESTProcedure Visit ABBY RODRÍGUEZ [address] [place] [id number] Yesica Christiansen PA [address] [place], [facility]11 Well woman exam with routine gynecological exam; History of ovarian cyst; Pelvic pain in female Social History Tobacco UseTypesPacks/DayYears UsedDateSmoking Tobacco: NeverSmokeless Tobacco: NeverAlcohol UseStandard Drinks/WeekCommentsYes0 (1 standard drink = 0.6 oz pure alcohol)1-2 drinks less than monthly in the past yearAUDIT-CAnswerDate Recorded Q1: How often do you have a drink containing alcohol?Monthly or less06/18/2023 Q2: How many drinks containing alcohol do you have on a typical day when you are drinking?1 or Q3: How often do you have six or more drinks on one occasion?Jfjezuw1606/18/2023CommentsUnknownSex and Gender InformationValue Date RecordedSex Assigned at BirthNot on fileLegal LvoFreakw71/15/2023 11:38 PM EDTGender IdentityNot on fileSexual OrientationNot on filedocumented as of this encounter Last Filed Vital Signs Vital SignReadingTime TakenCommentsBlood Rjgvzidf269/7211 2:47 PM EST Pulse--Temperature--Respiratory Rate--Oxygen Saturation--Inhaled Oxygen Concentration--Zooxto87.8 kg (156 lb)05/04/2025 2:47 PM ESTHeight--Body Mass Index24.806 9:32 AM EDTdocumented in this encounter Progress Notes * TERRY Lange - 05/04/2025 3:00 PM EST Reason for Appointment: Patient ID: Jewell Mckeon is a 29 y.o. female who presents for Gynecologic Exam Patient presents today for Annual Exam. MEDICATIONS Current Outpatient Medications Medication Instructions ibuprofen 800 mg, Every 8 hours levonorgestrel-ethinyl estradiol (Seasonale) 0.15-0.03 MG tablet 1 tablet, Daily ALLERGIES Allergies Allergen Reactions Lamisil [Terbinafine] Itching PROBLEMS Active Ambulatory Problems Diagnosis Date Noted No Active Ambulatory Problems Resolved Ambulatory Problems Diagnosis Date Noted No Resolved Ambulatory Problems Past Medical History: Diagnosis Date Bacterial vaginosis 05/18/23 PCOS (polycystic ovarian syndrome) Urinary tract infection 05/06/23 HISTORY PAST MEDICAL HISTORY SOCIAL HISTORY Past Medical History: Diagnosis Date Bacterial vaginosis 05/18/23 PCOS (polycystic ovarian syndrome) Urinary tract infection 05/06/23 Social History Tobacco Use Smoking status: Never Smokeless tobacco: Never Vaping Use Vaping status: Never Used Substance Use Topics Alcohol use: Yes Comment: 1-2 drinks less than monthly in the past year Drug use: Never FAMILY HISTORY Family History Problem Relation Name Age of Onset Diabetes Paternal Grandfather Rajan Zimmer Cancer Other SURGICAL HISTORY History reviewed. No pertinent surgical history. REVIEW OF SYSTEMS Review of Systems: Review of Systems Constitutional: Negative. HENT: Negative. Eyes: Negative. Respiratory: Negative. Cardiovascular: Negative. Gastrointestinal: Negative. Genitourinary: Negative. Musculoskeletal: Negative. Skin: Negative. Neurological: Negative. All other systems reviewed and are negative. Hematological: Negative. Endocrine: Negative. Allergic/Immunologic: Negative. OBJECTIVE Objective: Physical Exam Constitutional: Appearance: Normal appearance. Genitourinary: Right Adnexa: not tender and no mass present. Left Adnexa: not tender and no mass present. No cervical discharge. Breasts: Breasts are soft. Right: Normal. Left: Normal. HENT: Head: Normocephalic. Nose: Nose normal. Mouth/Throat: Mouth: Mucous membranes are moist. Cardiovascular: Rate and Rhythm: Normal rate. Pulmonary: Effort: Pulmonary effort is normal. Abdominal: General: Bowel sounds are normal. Palpations: Abdomen is soft. Musculoskeletal: General: Normal range of motion. Cervical back: Normal range of motion. Neurological: General: No focal deficit present. Mental Status: She is alert. Skin: General: Skin is warm and dry. Psychiatric: Mood and Affect: Mood normal. Vitals and nursing note reviewed. Exam conducted with a marshmallow machine operator present. Vitals: Estimated body mass index is 24.8 kg/m?? as calculated from the following: Height as of 11/16/24: 5' 6.5 . Weight as of this encounter: 156 lb. BP: 116/72 No LMP recorded. ASSESSMENT & PLAN ICD-10-CM 1. Well woman exam with routine gynecological exam Z01.419 Pap Smear Assessment/Plan Annual Exam: Patient presents today for an annual exam. Patient states she is doing well and has no complaints. Pap was obtained without difficulty. No orders of the defined types were placed in this encounter. Patient states she has history of ovarian cyst and would like to have follow up US for occasional pelvic pain. Pt will follow up as needed Follow Up: Patient is to return in one year for annual unless needed otherwise. Documented by Magalie Campoverde CST on behalf of: TERRY Lange * Magalie Campoverde - 05/04/2025 3:00 PM EST Reason for Appointment: Patient ID: Jewell Mckeon is a 29 y.o. female who presents for Gynecologic Exam Patient presents today for Annual Exam. MEDICATIONS Current Outpatient Medications Medication Instructions ??? ibuprofen 800 mg, Every 8 hours ??? levonorgestrel-ethinyl estradiol (Seasonale) 0.15-0.03 MG tablet 1 tablet, Daily ALLERGIES Allergies Allergen Reactions ??? Lamisil [Terbinafine] Itching PROBLEMS Active Ambulatory Problems Diagnosis Date Noted ??? No Active Ambulatory Problems Resolved Ambulatory Problems Diagnosis Date Noted ??? No Resolved Ambulatory Problems Past Medical History: Diagnosis Date ??? Bacterial vaginosis 05/18/23 ??? PCOS (polycystic ovarian syndrome) ??? Urinary tract infection 05/06/23 HISTORY PAST MEDICAL HISTORY SOCIAL HISTORY Past Medical History: Diagnosis Date ??? Bacterial vaginosis 05/18/23 ??? PCOS (polycystic ovarian syndrome) ??? Urinary tract infection 05/06/23 Social History Tobacco Use ??? Smoking status: Never ??? Smokeless tobacco: Never Vaping Use ??? Vaping status: Never Used Substance Use Topics ??? Alcohol use: Yes Comment: 1-2 drinks less than monthly in the past year ??? Drug use: Never FAMILY HISTORY Family History Problem Relation Name Age of Onset ??? Diabetes Paternal Grandfather Rajan Zimmer ??? Cancer Other SURGICAL HISTORY History reviewed. No pertinent surgical history. REVIEW OF SYSTEMS Review of Systems: Review of Systems Constitutional: Negative. HENT: Negative. Eyes: Negative. Respiratory: Negative. Cardiovascular: Negative. Gastrointestinal: Negative. Genitourinary: Negative. Musculoskeletal: Negative. Skin: Negative. Neurological: Negative. All other systems reviewed and are negative. Hematological: Negative. Endocrine: Negative. Allergic/Immunologic: Negative. OBJECTIVE Objective: OBGyn Exam Vitals: Estimated body mass index is 23.85 kg/m?? as calculated from the following: Height as of 11/16/24: 5' 6.5 . Weight as of 11/16/24: 150 lb. BP: No LMP recorded. ASSESSMENT & PLAN ICD-10-CM 1. Well woman exam with routine gynecological exam Z01.419 Pap Smear Assessment/Plan Annual Exam: Patient presents today for an annual exam. Patient states she is doing well and has no complaints. Pap was obtained without difficulty. No orders of the defined types were placed in this encounter. Follow Up: Patient is to return in one year for annual unless needed otherwise. Documented by Magalie Campoverde CST on behalf of: TERRY Lange documented in this encounter Plan of Treatment DateTypeDepartmentCare Team (Latest Contact Info)Wykctsslztn26/24/2026 3:00 PM ESTProcedure Visit [facility] [address] [place] [address] [place] [address] Yesica Christiansen PA [address] [place] [address] NameTypePriorityAssociated DiagnosesOrder SchedulePap SmearPathology and CytologyRoutine Well woman exam with routine gynecological exam Ordered: 05/04/2025US Pelvis w/ TVImagingRoutine History of ovarian cyst Pelvic pain in female Expected: 05/04/2025, Expires: 11/01/2025documented as of this encounter Visit Diagnoses Diagnosis Well woman exam with routine gynecological exam Routine gynecological examination History of ovarian cyst Personal history of other genital system and obstetric disorders Pelvic pain in female Unspecified symptom associated with female genital organs documented in this encounter Care Teams Team MemberRelationshipSpecialtyStart DateEnd Date Dana Cazares NP [address] [place], [place] [id number] Primary Care ProviderFamily Medicine11/16/24documented as of this encounter
--- OUTSIDE RECORDS SUMMARY | 2025-05-04 16:04 | XMS_ITS | Encounter Summary ---
Author Organization [facility] Address [address] [facility] [place] [address] Care Team Providers Care Network Security Analyst Name Role Phone Dana Cazares MOBILITY DEVELOPER Unavailable Encounter Details DateTypeDepartmentCare Team (Latest Contact Info)Awvpxbnupcg45/20/2025amboo flowsheet [facility] [address] [place] [address] Yesica Christiansen PA [address] [facility] [place], [facility] Social History Tobacco UseTypesPacks/DayYears UsedDateSmoking Tobacco: NeverSmokeless [...] have six or more drinks on one occasion?Hjupdao2906/18/2023CommentsUnknownSex and Gender InformationValue Date RecordedSex Assigned at BirthNot on fileLegal QspSviyvh80/15/2023 11:38 PM EDTGender IdentityNot on fileSexual OrientationNot on filedocumented as of this encounter Plan of Treatment DateTypeDepartmentCare Team (Latest Contact Info)Ovhojbzsyoy27/24/2026 3:00 PM ESTProcedure Visit [facility] [address] [place] [phone] Yesica Christiansen PA [address] [place] [address] documented as of this encounter Visit Diagnoses Not on filedocumented in this encounter Care Teams Team MemberRelationshipSpecialtyStart DateEnd Date Dana Cazares NP [address] [place] [address] Primary Care ProviderFamily Medicine11/16/24documented as of this encounter
--- OUTSIDE RECORDS SUMMARY | 2025-05-04 16:04 | XMS_ITS | Clinical Summary ---
Author Organization [facility] tem Address [id number] [address] [place] [address] Care Team Providers Care Senior Technical Manager Name Role Phone Unavailable Primary Care Provider Unavailabl e Social History Tobacco UseTypesPacks/DayYears UsedDateSmoking Tobacco: Never Assessed CommentsUnknownSex and Gender InformationValueDate RecordedSex Assigned at Not on fileLegal MusEyoayh81/06/2022 3:44 PM EDTGender IdentityNot on fileSexual OrientationNot on file Plan of Treatment Health MaintenanceDue DateLast DoneCommentsDepression Wdiltkvfq16/19/2009Tobacco Cvubihgwn96/19/2009dult BMI Skxpnltcz40/19/2015DTaP,Tdap and Td Vaccines (1 - Tdap)09/01/2015Pap Smear2017Influenza Lcbyezn7702/13/2025 Medical Devices Not on file Insurance
--- OUTSIDE RECORDS SUMMARY | 2025-05-04 16:04 | XMS_ITS | Clinical Summary ---
Author Organization [facility] Address [address] [place] [address] Care Team Providers Care Survey Research Teacher Name Role Phone Debora Dana NURSE SPECIALIST Unavailable Allergies Active AllergyReactionsCriticalityNoted AwouLxzbhnpwJzvenhlfmoiAebagni38/04/2025 Medications MedicationSigDispense QuantityRefillsLast FilledStart DateEnd DateStatus ibuprofen 800 MG tablet Take 800 mg by mouth every 8 (eight) hours PRN3Active levonorgestrel-ethinyl estradiol (Seasonale) 0.15-0.03 MG tablet Take 1 tablet by mouth Daily03/25/2023ctive levonorgestrel-ethinyl estradiol (Seasonale) 0.15-0.03 MG tablet Indications:Well woman exam with routine gynecological examTake 1 tablet by mouth Daily 84 tablet ctive Encounters DateTypeDepartmentCare KzooLcnommvrrtl90/20/2025 3:00 PM ESTProcedure Visit NOMRupinder RODRÍGUEZ [address] [place] [address] [place] [address] Yesica Christiansen PA Well woman exam with routine gynecological exam; History of ovarian cyst; Pelvic pain in uiscgk6305/04/2025amboo flowsheet NOMRupinder RODRÍGUEZ [address] [place] [address] Yesica Christiansen PA from Last 3 Months Family History Medical HistoryRelationNameCommentsCancerOtherDiabetesPaternal GrandfatherJim YeckleyRelationNameStatusCommentsFatherAliveMotherAliveOtherPaternal Grandfather Rajan Osborne Social History Tobacco UseTypesPacks/DayYears UsedDateSmoking Tobacco: NeverSmokeless Tobacco: Never Tobacco Cessation:Counseling Given: Not Answered Alcohol UseStandard Drinks/WeekCommentsYes0 (1 standard drink = 0.6 oz pure alcohol)1-2 drinks less than monthly in the past yearAUDIT-CAnswerDate Recorded Q1: How often do you have a drink containing alcohol?Monthly or less06/18/2023 Q2: How many drinks containing alcohol do you have on a typical day when you are drinking?1 or Q3: How often do you have six or more drinks on one occasion?Sqxegdy8706/18/2023CommentsUnknownSex and Gender InformationValue Date RecordedSex Assigned at BirthNot on fileLegal LqnBnedpk15/15/2023 11:38 PM EDTGender IdentityNot on fileSexual OrientationNot on file Last Filed Vital Signs Vital SignReadingTime TakenCommentsBlood Nkvposjk138/7205/04/2025 2:47 PM EST Pulse--Temperature--Respiratory Rate--Oxygen Saturation--Inhaled Oxygen Concentration--Rxvcqi49.8 kg (156 lb)05/04/2025 2:47 PM PRLKxhbkz526.9 cm (5' 6.5 )11/16/2024 9:32 AM EDTBody Mass Index24.8011/16/2024 9:32 AM EDT Plan of Treatment DateTypeDepartmentCare Team (Latest Contact Info)Dflpyhqisvb15/24/2026 3:00 PM ESTProcedure Visit [facility] [address] [facility] [place] [address] Yesica Christiansen PA [address] [facility] [place] [place] [address] Insurance Care Teams Team MemberRelationshipSpecialtyStart DateEnd Date Dana Cazares NP [address] [place] [address] Primary Care ProviderFamily [facility]11/16/24
--- OUTSIDE RECORDS SUMMARY | 2025-05-04 16:06 | XMS_ITS | CCD ---
Author Organization [facility] Care Team Providers Care Microfilm Duplicating Unit Supervisor Name Role Phone Barbra Davis Unavailable Jaye Lyn Unavailable DIAB ., KETTY Attending Unavailable DIAB ., KETTY Consulting Unavailable DIAB ., KETTY Admitting Unavailable MCGREGOR ., DR LINDY Renteria Primary Care Unavailable HAMLET ., DR LO Attending Unavailable HAMLET ., DR LO Consulting Unavailable HAMLET ., DR LO Admitting Unavailable MCGREGOR ., DR LINDY Renteria Primary Care Unavailable Dana Cazares Primary Care Physician [phone] Juliette Marquez Unavailable Barbra Davis Attending Unavailable Barbra Davis Admitting Unavailable Lindy Mcgregor MD Primary Care Provider LAYO GAUTAM Attending Unavailable NOLVIA, LAYO Chavira Attending Unavailable LAYO GATUAM Attending Unavailable YESICA SALDIVAR Attending Unavailable NOLVIA, LAYO Chavira Attending Unavailable LAYO GAUTAM Attending Unavailable Dana Cazares MD Unavailable LA SCHERER Attending Unavailable Dana Cazares Attending Unavailable Dana Cazares Attending Unavailable DeboraDana burgos Attending Unavailable DeboraDana burgos Attending Unavailable Ez DE LA VEGA Attending Unavailable Allergies Allergy ClassificationReported Allergen(s)Allergy TypeDate of OnsetReaction(s) Facility (2 sources)terbinafineDrug Degdtsg53-55-8561GacedfbOECB [facility] Medications Current Medications MedicationDrug Class(es)DatesSig (Normalized)Sig (Original)amoxicillin 875 mg / clavulanate 125 mg oral tablet (1 source)Penicillin-class AntibacterialStart: 80-60-1043mnot 1 tablet by mouth every twelve hoursAmoxicillin-Pot Clavulanate 875-125 MG 1 tablet Orally every 12 hrs for 10 day(s) Sep, ActiveEthinyl Estradiol / Levonorgestrel (18 sources)Progestin, Estrogen, Progestin-containing Intrauterine DeviceStart: 22-38-0244hhsptnbldhcasd-ethinyl estradiol (Seasonale) 0.15-0.03 MG tablet Take 1 tablet by mouth Daily 03/25/2023 ActiveStart: 42-57-5901strermntlyemwx-ethinyl estradiol (Seasonale) 0.15-0.03 MG tablet Take 1 tablet by mouth in the morning. 03/25/2023 ActiveStart: 56-75-0732kehnfvavjvhtty-ethinyl estradiol (Seasonale) 0.15-0.03 MG tablet Take 1 tablet by mouth in the morning. 0 03/25/2023 Active fluticasone propionate 0.05 mg/actuat metered dose nasal spray (1 source)CorticosteroidStart: 72-55-3338dzld 2 spray(s) nasal route once daily Fluticasone Propionate 50 MCG/ACT 2 sprays Nasally Once a day for 14 day(s) Sep, Activeibuprofen 800 mg oral tablet (20 sources)Nonsteroidal Anti-inflammatory DrugStart: 47-10-2068ckhl 1 tablet by mouth every eight hoursibuprofen 800 MG tablet Take 800 mg by mouth every 8 (eight) hours PRN 01/30/2023 ActivepredniSONE 20 mg oral tablet (1 source)Start: 07-37-8236aurc 1 tablet by mouth every twelve hourspredniSONE 20 MG 1 tablet Orally bid for 5 day(s) Sep, Activeterbinafine 250 mg oral tablet (12 sources)Allylamine AntifungalStart: 08-11-2024 End: 26-80-6490hidg 1 tablet by mouth once dailyterbinafine (LamISIL) 250 MG tablet Indications: Dermatophytosis of nail , Dystrophic nail , Pain around toenail Take 1 tablet (250 mg) by mouth Daily 90 tablet 08/11/2024 11/16/2024 Discontinued (Therapy completed) End: 23-99-8243kmzv 1 tablet by mouth in the morningterbinafine (LamISIL) 250 MG tablet Take 250 mg by mouth in the morning. 04/19/2024 DiscontinuedLamISIL TABLET FOR TOE NAIL FUNGUS Active Completed/Discontinued Medications MedicationDrug Class(es)DatesSig (Normalized)Sig (Original)cyclobenzaprine hydrochloride 10 mg oral tablet (4 sources)Muscle Relaxanttake 1 tablet by mouth every eight hours as needed Cyclobenzaprine HCl 10 MG 1 tablet Orally every 8 hours prn for 7 days Not-Takingethinyl estradiol-levonorgestrel extended cycle 30 mcg-0.15 mg Tab (1 source)Start: 18-16-8952zbneeqj estradiol-levonorgestrel extended cycle 30 mcg-0.15 mg Tab See Instructions, 91 tab(s), Refill(s) 2, TAKE 1 TABLET BY MOUTH EVERY DAY, [id number], 167.6, cm, 06/10/23 8:12:00 EST, Height/Length Dosing, 67, kg, 06/10/23 8:12:00 EST, Weight Dosing Start Date: 12/21/23 Status: OrderedTriamcinolone (6 sources)CorticosteroidStart: 31-56-6660IQRCIEW - 10 mg May, 40 mg Problems Active Problems Problem ClassificationProblemDateDocumented DateEpisodic/ChronicAbdominal pain (1 source)Pain in qkztpu98-29-3351EibltzeeRyepb bronchitis (6 sources)Acute bronchitis; Translations: [Acute bronchitis]EpisodicChronic obstructive pulmonary disease and bronchiectasis (1 source)Zoxfegiuxz83-64-6659DgoazdwjIjxskkrlgagtz symptoms and ill-defined conditions (6 sources)Dysuria; Translations: [Dysuria]Onset: 71-91-4112ZjsluuwvIaytmzsflxsa diseases of female pelvic organs (1 source)Bacterial pfltemvqy26-23-9818OgenvoxeUjugsuq (9 sources)Onychomycosis due to dermatophyte ; Translations: [Tinea unguium] 73-66-8508EowdfsmvNprmu connective tissue disease (3 sources)Pain in hallux; Translations: [Pain in right toe(s)]07-16-2023 EpisodicOther connective tissue disease (8 sources)Pain in toe; Translations: [Pain in unspecified toe(s)]05-04-2024 EpisodicOther endocrine disorders (1 source)Polycystic ovary -78-1784BpqjwayKsrgy nervous system disorders (3 sources)Difficulty walking; Translations: [Difficulty in walking, not elsewhere classified]06-13-4426BgytdqlPhzst nutritional; endocrine; and metabolic disorders (3 sources)Overweight in adulthood with body mass index of 25 or more but less than 1776-70-6827BknsrxfpVvkoq skin disorders (1 source)Disorder of skin; Translations: [Other specified disorders of the skin and subcutaneous tissue]Onset: 99-99-7985CwxsisapQiyxh skin disorders (3 sources)Pilonidal htsaepu59-41-3211JtbnqsedLfpai skin disorders (7 sources)Ingrowing nail; Translations: [Ingrowing nail]00-19-8425AvdfubhiObugq skin disorders (8 sources)Dystrophia unguium; Translations: [Nail dystrophy]94-54-9857Fiqmfqxx Other upper respiratory infections (8 sources)Upper respiratory infection; Translations: [Upper respiratory infection]Onset: 09-23-2021 Resolved: 64-05-8934PmibebakVnsd and subcutaneous tissue infections (10 sources)Pilonidal cyst with abscess; Translations: [Pilonidal cyst]Onset: 99-15-8316WpyyfnxpKhqeidh and strains (1 source)Strain of other muscles, fascia and tendons at shoulder and upper arm level, right arm, initial encounterEpisodicUnclassified (6 sources)Patient encounter ktktti04-55-3121Iumllyqhzqaw (2 sources)Cancer cervix screening cykusl93-94-9101 Past or Other Problems Problem ClassificationProblemDateDocumented DateEpisodic/ChronicFever of unknown origin (1 source)Fever, unspecifiedOnset: 09-23-2021 Resolved: 99-78-6173TbxmprkcHvnhzglgtdqlc and screening for infectious disease (1 source)Encounter for screening for human papillomavirus (HPV); Translations: [ENC SCREENING HUMAN PAPILLOMAVIRUS]Onset: 27-15-2017BjlsiwsdZuozu screening for suspected conditions (not mental disorders or infectious disease) (4 sources)Encounter for screening for malignant neoplasm of cervix; Translations: [ENC SCREENING MALIG NEOPLASM CERV]Onset: 08-10-2491Rlseoxrn Results Test NameValueInterpretationReference RangeFacilityAmbulatory Visit Summaryon 68-76-6036Olfpdscimf Visit SummaryAmbulatory Visit Summary JEWELL RICHARDSON :1995 Visit Date:09/01/2024 Ambulatory Visit Instructions Your Diagnosis Neck pain Fatigue Your Care Team Attending Physician - Dana Pastor Primary Care Physician - Dana Pastor This Is Your Medications List brompheniramine/dextromethorphan/PSE (Bromfed DM oral syrup) ethinyl estradiol-levonorgestrel (ethinyl estradiol-levonorgestrel extended cycle 30 mcg-0.15 mg Tab) ibuprofen (ibuprofen 800 mg Tab) Procedures Performed Headache, Ovarian cyst, PCOS- polycystic ovary syndrome, Reattachment of finger. Discharge Vitals Heart Rate (Peripheral) 92 Respiratory Rate 18 Blood Pressure 138/90 Height 168.0 cm Height 66 in Weight 71.45 kg Weight 157.52 lb BMI 25.32 Medications What How Much When Why Instructions Unchanged brompheniramine/ dextromethorphan/ PSE (Bromfed DM oral syrup) 5 Milliliter By Mouth 4 times a day as needed for for cough and congestion Cough Sinusitis Fluid level behind tympanic membrane of both ears BMI 25.0-25.9,adult Non-smoker Unchanged ethinyl estradiol-levonorgestrel (ethinyl estradiol-levonorgestrel extended cycle 30 mcg-0.15 mg Tab) See instructions TAKE 1 TABLET BY MOUTH EVERY DAY Unchanged ibuprofen (ibuprofen 800 mg Tab) 1 Tablets By Mouth Every 8 hours Allergies No Known Allergies Problems Ongoing - Any problem that you are currently receiving treatment for. Bacterial vaginitis BMI 25.0-25.9,adult Body aches Bronchitis Cervical cancer screening Cough Fluid level behind tympanic membrane of both ears Neck pain PCOS (polycystic ovarian syndrome) Pelvic pain Pilonidal cyst Pilonidal disease Sinusitis Vaginal sasha Well woman exam Wellness examination Patient Survey You may receive a survey via text or e-mail asking about your office visit. Please share your experience with us by completing your survey. We appreciate your feedback and thank you for choosing us for your care. [facility] Medicine Office/Clinic Noteon [id number] Medicine Office/Clinic NoteFafree hospital for women Medicine Office/Clinic Note HPI Staff Jewell is a 29 year old female presenting for acute visit Pain characteristics: Pain location: neck stiff Intensity: 6-7/10 hurts worse at work. Onset: Today Medication used: No injury that pt knows of, Turning head to the left c/o pain feels like there is pulling. 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 Pt denies having any imaging done of her neck . Pt is seeing massage therapist tomorrow. Long time ago did see a chiropractor. Pt states she stretches every day before and after work. Turning head to left makes pain worse. History of Present Illness pt presents today for severe neck pain Review of Systems PHQ Score Initial Depression Screen Score: 2 SCORE Physical Exam Vitals & Measurements HR: 92(Peripheral) RR: 18 BP: 138/90 SpO2: 99% HT: 168.0 cm HT: 66 in WT: 157.52 lb WT: 71.45 kg BMI: 25.32 General: alert, no acute distress ENMT: oral mucosa moist, no pharyngeal erythema or exudate Cardiovascular: regular rate and rhythm, normal peripheral perfusion Respiratory: Lungs CTA, respirations non labored Extremities: no deformity, no trauma Neurological: oriented x 4, LOC appropriate for age, CN II-XII intact, motor strength equal & normal bilaterally, speech normal limited ROM of neck due to pain and stiffness Assessment/Plan 1. Neck pain (M54.2: Cervicalgia) pt presents today for severe neck pain. woke up with stiff neck. was not able to go to work. will need [place] paper work filled out. [employer] is supposed to be faxing us that paper work. 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 will send medrol dose pack, muscle relaxer and anti inflammatory. x ray ordered at [facility]. will call her with those results. pt is scheduled for massage tomorrow. Ordered: cyclobenzaprine, 10 mg = 1 tab(s), Oral, TID, PRN for spasm, # 30 tab(s), Refills(s) 0, Pharmacy: [facility]/pharmacy #[id number], 168, cm, 09/01/24 14:11:00 EDT, Height/Length Dosing, 71.5, kg, 09/01/24 14:11:00EDT, Weight Dosing meloxicam, 15 mg = 1 tab(s), Oral, Daily, # 30 tab(s), Refills(s) 0, [id number] 168, cm, 09/01/24 14:11:00 EDT, Height/Length Dosing, 71.5, kg, 09/01/24 14:11:00 EDT, Weight Dosing methylPREDNISolone, = 1 packet(s), Oral, As Directed, as directed on package labeling, X 6 day(s), # 21 tab(s), Refills(s) 0, [id number], 168, cm, 09/01/24 14:11:00 EDT, Height/Length Dosing, 71.5, kg, 09/01/24 14:11:00 EDT, Weight Dosing 2. BMI 25.0-25.9,adult (Z68.25: Body mass index [BMI] 25.0-25.9, adult) Orders: Lab Specimen Collect 90443 Follow-up No qualifying data available Problem List/Past Medical History Ongoing Bacterial vaginitis BMI 25.0-25.9,adult Body aches Bronchitis Cervical cancer screening Cough Fluid level behind tympanic membrane of both ears Neck pain PCOS (polycystic ovarian syndrome) Pelvic pain Pilonidal cyst Pilonidal disease Sinusitis Vaginal sasha Well woman exam Wellness examination Historical No qualifying data Procedure/Surgical History Headache, Ovarian cyst, PCOS- polycystic ovary syndrome, Reattachment of finger. Medications Bromfed DM oral syrup, 5 mL, Oral, QID, PRN cyclobenzaprine 10 mg Tab, 10 mg= 1 tab(s), Oral, TID, PRN ethinyl estradiol-levonorgestrel extended cycle 30 mcg-0.15 mg Tab, See Instructions ibuprofen 800 mg Tab, 800 mg= 1 tab(s), Oral, q8hr, 1 refills Medrol 4 mg Tab, 1 packet(s), Oral, As Directed meloxicam 15 mg Tab, 15 mg= 1 tab(s), Oral, Daily Allergies No Known Allergies Social History Alcohol [...] inactivated - Not Given Postpone due to refusalNormal [facility] CenterComment on above:Result Comment: Electronically Signed By: Dana Pastor\.br\Date and Time Signed: 09/01/24 14:33 EDT Ambulatory Visit Summaryon [id number] Visit SummaryAmbulatory Visit Summary JEWELL RICHARDSON :1995 Visit Date:08/23/2024 Ambulatory Visit Instructions Your Diagnosis Cough Sinusitis Fluid level behind tympanic membrane of both ears BMI 25.0-25.9,adult Non-smoker Your Care Team Attending Physician - Dana Pastor Primary Care Physician - Dana Pastor This Is Your Medications List amoxicillin-clavulanate (Augmentin 875 mg oral tablet) brompheniramine/dextromethorphan/PSE (Bromfed DM oral syrup) ethinyl estradiol-levonorgestrel (ethinyl estradiol-levonorgestrel extended cycle 30 mcg-0.15 mg Tab) ibuprofen (ibuprofen 800 mg Tab) Procedures Performed Headache, Ovarian cyst, PCOS- polycystic ovary syndrome, Reattachment of finger. Discharge Vitals Temperature (Tympanic) 37.1 ???C Heart Rate (Peripheral) 128 Respiratory Rate 20 Blood Pressure 130/88 Height 168.0 cm Height 66 in Weight 71.8 kg Weight 158.292 lb BMI 25.44 Medications What How Much When Why Instructions New amoxicillin-clavulanate (Augmentin 875 mg oral tablet) 1 Tablets By Mouth Every 12 hours Cough Sinusitis Fluid level behind tympanic membrane of both ears BMI 25.0-25.9,adult Non-smoker Duration:7 Days Pickup at [facility]/pharmacy #[id number] New brompheniramine/ dextromethorphan/ PSE (Bromfed DM oral syrup) 5 Milliliter By Mouth 4 times a day as needed for for cough and congestion Cough Sinusitis Fluid level behind tympanic membrane of both ears BMI 25.0-25.9,adult Non-smoker Pickup at [facility]/pharmacy #[id number] Unchanged ethinyl estradiol-levonorgestrel (ethinyl estradiol-levonorgestrel extended cycle 30 mcg-0.15 mg Tab) See instructions TAKE 1 TABLET BY MOUTH EVERY DAY Unchanged ibuprofen (ibuprofen 800 mg Tab) 1 Tablets By Mouth Every 8 hours Pharmacy Information [facility]/pharmacy #[id number]: [address] [place], [place] [id number] [phone] Medications and Immunizations Administered Given triamcinolone acetonide [...] you for choosing us for your care. [facility] Medicine Office/Clinic Noteon 20-56-2634Uruetc Medicine Office/Clinic NoteGroton Community Hospital Medicine Office/Clinic Note HPI Staff Jewell is [...] give 40mg kenalog in office today Ordered: amoxicillin-clavulanate, = 1 tab(s), Oral, q12hr, X 7 day(s), # 14 tab(s), Refills(s) 0, Pharmacy: [facility]/pharmacy #[id number], 168, cm, 08/23/24 10:43:00 EDT, Height/Length Dosing, 71.8, kg, 08/23/24 10:43:00 EDT, Weight Dosing brompheniramine/dextromethorphan/PSE, 5 mL, Oral, QID for cough and congestion, 200 mL, Refill(s) 0, [facility]/pharmacy #[id number], 168, cm, 08/23/24 10:43:00 EDT, Height/Length Dosing, 71.8, kg, 08/23/24 10:43:00 EDT, Weight Dosing triamcinolone, 40 mg = 1 mL, Injection, IntraMuscular, Once, Stop date 08/23/24 10:54:00 EDT, Routine, Start date 08/23/24 10:54:00 EDT, 08/23/24 10:54:00 EDT Influenza Type A&B POC 38361 Rapid COVID POC 20440 2. Sinusitis (J32.9: Chronic sinusitis, unspecified) sinus tenderness, nasal congestion. will send in augmenting Ordered: amoxicillin-clavulanate, = 1 tab(s), Oral, q12hr, X 7 day(s), # 14 tab(s), Refills(s) 0, Pharmacy: [facility]/pharmacy #[id number], 168, cm, 08/23/24 10:43:00 EDT, Height/Length Dosing, 71.8, kg, 08/23/24 10:43:00 EDT, Weight Dosing brompheniramine/dextromethorphan/PSE, 5 mL, Oral, QID for cough and congestion, 200 mL, Refill(s) 0, [facility]/pharmacy #[id number], 168, cm, 08/23/24 10:43:00 EDT, Height/Length Dosing, 71.8, kg, 08/23/24 10:43:00 EDT, Weight Dosing 3. Fluid level behind tympanic membrane of both ears (H65.93: Unspecified nonsuppurative otitis media, bilateral) kenalog given in office today. pt getting dizzy from fluid Ordered: amoxicillin-clavulanate, = 1 tab(s), Oral, q12hr, X 7 day(s), # 14 tab(s), Refills(s) 0, Pharmacy: [facility]/pharmacy #[id number], 168, cm, 08/23/24 10:43:00 EDT, Height/Length Dosing, 71.8, kg, 08/23/24 10:43:00 EDT, Weight Dosing brompheniramine/dextromethorphan/PSE, 5 mL, Oral, QID for cough and congestion, 200 mL, Refill(s) 0, [facility]/pharmacy #[id number], 168, cm, 08/23/24 10:43:00 EDT, Height/Length Dosing, 71.8, kg, 08/23/24 10:43:00 EDT, Weight Dosing 4. BMI 25.0-25.9,adult (Z68.25: Body mass index [BMI] 25.0-25.9, adult) BMI education gvien Ordered: amoxicillin-clavulanate, = 1 tab(s), Oral, q12hr, X 7 day(s), # 14 tab(s), Refills(s) 0, Pharmacy: [facility]/pharmacy #[id number], 168, cm, 08/23/24 10:43:00 EDT, Height/Length Dosing, 71.8, kg, 08/23/24 10:43:00 EDT, Weight Dosing brompheniramine/dextromethorphan/PSE, 5 mL, Oral, QID for cough and congestion, 200 mL, Refill(s) 0, [facility]/pharmacy #[id number], 168, cm, 08/23/24 10:43:00 EDT, Height/Length Dosing, 71.8, kg, 08/23/24 10:43:00 EDT, Weight Dosing triamcinolone, 40 mg = 1 mL, Injection, IntraMuscular, Once, Stop date 08/23/24 10:54:00 EDT, Routine, Start date 08/23/24 10:54:00 EDT, 08/23/24 10:54:00 EDT Influenza Type A&B POC 47622 Rapid COVID POC 05249 5. Non-smoker (Z78.9: Other specified health status) continue not smoking Ordered: amoxicillin-clavulanate, = 1 tab(s), Oral, q12hr, X 7 day(s), # 14 tab(s), Refills(s) 0, Pharmacy: [facility]/pharmacy #[id number], 168, cm, 08/23/24 10:43:00 EDT, Height/Length Dosing, 71.8, kg, 08/23/24 10:43:00 EDT, Weight Dosing brompheniramine/dextromethorphan/PSE, 5 mL, Oral, QID for cough and congestion, 200 mL, Refill(s) 0, [facility]/pharmacy #[id number], 168, cm, 08/23/24 10:43:00 EDT, Height/Length Dosing, 71.8, kg, 08/23/24 10:43:00 EDT, Weight Dosing triamcinolone, 40 mg = 1 mL, Injection, IntraMuscular, Once, Stop date 08/23/24 10:54:00 EDT, Routine, Start date 08/23/24 10:54:00 EDT, 08/23/24 10:54:00 EDT Influenza Type A&B POC 94175 Rapid COVID POC 41120 Follow-up No qual (more content not included)...[facility] HospitalComment on above:Result Comment: Electronically Signed By: Dana Pastor.br\Date and Time Signed: 08/23/24 11:00 EDTUrology Office/Clinic Noteon 05-11-2024 Urology Office/Clinic NoteUrology Office/Clinic Note Chief Complaint urinary frequency HPI Staff Referral by Dr. Hamlet's office for frequency of urination. Reports that [...] for stone-formers we recommend 2.5L and for ctn-fnhix-ryrovld it can beeven less. She is at least double to [...] E&M of New Patient Low 30-44 Min 92167 Follow-up With When Contact Information [facility] Additional Instructions: Only if needed/new problems arise. [...] ovary syndrome, Reattachment of finger. Medications ethinyl estradiol-levonorgestrel extended cycle 30 mcg-0.15 mg Tab, See [...] inactivated - Not Given Postpone due to refusalNormal [facility] CenterComment on above:Result Comment: Electronically Signed By: LA SCHEERR PA-C.amanda\Date and Time Signed: 05/11/2416:20 EST IGP,APTIMA HPV,AGE GDLNon 42-27-3707ACV GDLN ACOG TESTINGNote.[facility] Comment on above:TESTS RESULT FLAG UNITS REF RANGE LAB Clinician Provided Cytology Information Source.............Cervix;Endocervix No. of containers..01 ThinPrep Vial Age Wali Gomez... FLAG LEGEND: L-Low Normal,H-High Normal,LL-Alert Low,HH-Alert High <-Panic Low,>-Panic High,A-Abnormal,AA-Critical Abnormal Performed at: 01 =G [facility] [address] Milka Whitley MD, IGP, RFX APTIMA HPV ASCUNote.[facility] HospitalComment on above:TESTS RESULT FLAG UNITS REF RANGE LAB DIAGNOSIS: 02 NEGATIVE FOR INTRAEPITHELIAL LESION OR MALIGNANCY. Specimen adequacy: 02 Satisfactory for evaluation. Endocervical and/or squamous metaplastic cells (endocervical component) are present. Performed by: Chino Hamilton Corporate Responsibility Officer (ASC) . 02 Note: Note 03 The Pap [...] <-Panic Low,>-Panic High,A-Abnormal,AA-Critical Abnormal Performed at: 02 [facility] [address] [place] [address] Darrius Jimenez MD, 03 WB [facility] [address] [address] Milka Whitley MD, Performed at: =G - [facility] [address] [id number] Credit Advisor: Milka Whitley MD, Phone: [phone] Performed at: [facility] - [facility] [address] [place], [place] [id number] Credit Advisor: Darrius Jimenez MD, Phone: [phone] BRUSH-SPATULA CERVIX ENDOCERVIX [facility] HEMOGLOBIN A1Con 62-02-0943Azttmpu [Mass/Vol]97 mg/dLFitzgibbon HospitalHbA1c (Bld) [Mass fraction]5 %4.5 - 6.2 %[facility] Comment on above:ADA RECOMMENDED LIMIT 4.0 - 6.0 ADA THERAPEUTIC TARGET < 7.0 ACTION SUGGESTED > 7.0 [facility] Medicine Office/Clinic Noteon [id number] Medicine Office/Clinic NoteFafree hospital for women Medicine Office/Clinic Note HPI Staff Jewell is [...] day(s), # 6 tab(s), Refills(s) 0, Pharmacy: [facility]/pharmacy #[id number], 167.6, cm, 04/11/24 14:44:00 EDT, Height/Length Dosing, 72.5, kg, 04/11/24 14:44:00 EDT, Weight Dosing 2. BMI 25.0-25.9,adult (Z68.25: Body mass index [BMI] 25.0-25.9, adult) BMI education given Ordered: azithromycin, = 1 packet(s), Oral, As Directed, as directed on package labeling, X 5 day(s), # 6 tab(s), Refills(s) 0, Pharmacy: [facility]/pharmacy #[id number], 167.6, cm, 04/11/24 14:44:00 EDT, Height/Length Dosing, 72.5, kg, 04/11/24 14:44:00 EDT, Weight Dosing 3. Non-smoker (Z78.9: Other specified health status) continue not smoking Ordered: azithromycin, = 1 packet(s), Oral, As Directed, as directed on package labeling, X 5 day(s), # 6 tab(s), Refills(s) 0, Pharmacy: [facility]/pharmacy #[id number], 167.6, cm, 04/11/24 14:44:00 EDT, Height/Length Dosing, 72.5, kg, 04/11/24 14:44:00 EDT, Weight Dosing 4. Overweight (BMI 25.0-29.9) (E66.3: Overweight) see above Ordered: azithromycin, = 1 packet(s), Oral, As Directed, as directed on package labeling, X 5 day(s), # 6 tab(s), Refills(s) 0, [id number], 167.6, cm, 04/11/24 14:44:00 EDT, Height/Length [...] As Directed benzonatate 100 mg Cap ethinyl estradiol-levonorgestrel extended cycle 30 mcg-0.15 mg Tab, See [...] inactivated - Not Given Postpone due to refusalNormal [facility] CenterComment on above:Result Comment: Electronically Signed By: Dana Pastor.amanda\Date and Time Signed: 04/11/24 14:57 EDT Urinalysis - AUTOMATEDon [id number] (U)cloudyNssm [facility] [employer] Other Bilirubin Ql (U)NegativeSutter [employer] Other Color (U)light yellowSutter [employer] Other Glucose Ql (U)NegativeAssetAvenue [employer] Other Hemoglobin Ql (U)traceNosaint joseph hospital west [employer] Other Ketones Ql (U)[facility] StanlyAssetAvenue [employer] Other Leukocyte esterase Test strip Ql (U)smallNoAssetAvenue [employer] Other Nitrite Ql (U)neatFreeman Cancer Institute [employer] Other pH (U)6.5 [pH][employer] Other Protein Ql (U)[facility] StanlyAssetAvenue [employer] Other Specific gravity (U) [Rel density]1.010[employer] Other Urobilinogen (U) [Mass/Vol]0.2 mg/dLSutter [employer] Other Urinalysis - AUTOMATEDAssetAvenue [employer] Other Urine Cultureon 62-53-5334Azyuczlo identified Cx Nom (U)50,000 colonies/ml mixed bacterial skin contaminants 2 Days PERFORMED BY: [address] [address] PATHOLOGIST SYNOPTIC METEOROLOGIST BRADFORD ANNE M.D.Morrow County HospitalComment on above: Performed By: #### CUU #### [place] [address] USABacteria identified Cx Nom (U)[employer] Other CHEMISTRYOrdered By: SYSTEM SYSTEM on 01-30-2023 Albumin [Mass/Vol]4.6 g/dLNormal3.3 - 5.0 gm/dLFTMC RemisolAlbumin/Globulin [Mass ratio]1.5 {ratio}Normal1.1 - 2.2[facility] RemisolALP [Catalytic activity/Vol]73 [iU]/lJeuscb62 - 98 Int._Unit/LFTMC RemisolALT No additional P-5'-P [Catalytic activity/Vol]21 [iU]/dNormal6 - 46 Int._Unit/LFTMC RemisolAnion gap [Moles/Vol] 10 mmol/LNormal6 - 16 mEq/LFTMC RemisolAST [Catalytic activity/Vol]20 [iU]/d Normal5 - 43 Int._Unit/LFTMC RemisolBilirubin [Mass/Vol]0.7 mg/dLNormal0.0 - 1.1 mg/dLFTMC RemisolCalcium [Mass/Vol]9.8 mg/dLNormal8.9 - 11.1 mg/dLFTMC Remisol Chloride [Moles/Vol]109 mmol/CPvkswj518 - 111 mmol/LFTMC RemisolCO2 [Moles/Vol] 24 mmol/QPstixk28 - 31 mmol/LFTMC RemisolCreatinine [Mass/Vol]0.7 mg/dLNormal0.5 - 1.3 mg/dLFTMC RemisolGFR/1.73 sq M.predicted among non-blacks MDRD (S/P/Bld) [Vol rate/Area]122 mL/min/1.73 p4Nkcece>=59mL/min/1.73 m2[facility] Chem SGlobulin (S) [Mass/Vol]3.0 g/dLNormal1.4 - 4.0 gm/dLFTMC RemisolGlucose [Mass/Vol]70 mg/dL Pczdfv35 - 199 mg/dLFTMC RemisolPotassium [Moles/Vol]4.0 mmol/LNormal3.5 - 5.3 mmol/LFTMC RemisolProtein [Mass/Vol]7.6 g/dLNormal6.0 - 7.8 gm/dLFTMC Remisol Sodium [Moles/Vol]139 mmol/RUhwyjh831 - 145 mmol/LFTMC RemisolTSH Qn1.07 m[IU]/L Normal0.34 - 5.60 mcIU/mLFTMC RemisolUrea nitrogen [Mass/Vol]14 mg/dLNormal5 - 21 mg/dLFTMC RemisolUrea nitrogen/Creatinine [Mass ratio]20 mg/vcYjpyyh68 - 20 [facility] RemisolHEMATOLOGYOrdered By: HEXIO SYSTEM on 34-31-7902Uyketzwic/100 WBC (Bld)0.5 %Normal0.0 - 2.0 %[facility] HemeAutoSSBasophils/Leukocytes Auto (Bld) [Pure # fraction]0.0 E9/LNormal0.0 - 0.2 E9/LFTMC HemeAutoSSEosinophils/100 WBC (Bld) 1.0 %Normal0.0 - 8.0 %[facility] HemeAutoSSEosinophils/Leukocytes Auto (Bld) [Pure # fraction]0.1 E9/LNormal0.0 - 0.5 E9/LFTMC HemeAutoSSLymphocytes/100 WBC (Bld) 22.3 %Hmxytl06.0 - 50.0 %[facility] HemeAutoSSLymphocytes/Leukocytes Auto (Bld) [Pure # fraction]1.9 E9/LNormal1.0 - 4.0 E9/LFTMC HemeAutoSSMonocytes/100 WBC (Bld)5.5 %Normal4.0 - 14.0 %[facility] HemeAutoSSMonocytes/Leukocytes Auto (Bld) [Pure # fraction]0.5 E9/LNormal0.2 - 1.0 E9/LFTMC HemeAutoSSNeutrophils/100 WBC (Bld) 70.7 %Fnvuym26.0 - 75.0 %[facility] HemeAutoSSNeutrophils/Leukocytes Auto (Bld) [Pure # fraction]6.1 E9/LNormal2.0 - 7.5 E9/LFTMC HemeAutoSSHEMATOLOGYOrdered By: Maria Alejandra Fitch on 19-05-8843Aatuifwcfil distribution width (RBC) [Ratio]13.6 % Pnaavp35.9 - 14.2 %[facility] HemeAutoSSHematocrit (Bld) [Volume fraction]41.3 %Normal 34.0 - 46.0 %[facility] HemeAutoSSHemoglobin (Bld) [Mass/Vol]13.9 g/bKDldntx52.0 - 16.0 gm/dLFTMC HemeAutoSSMCH (RBC) [Entitic mass]29.2 toElgsea69.0 - 34.0 pgFTMC HemeAutoSSMCHC (RBC) [Mass/Vol]33.6 g/dTOkxkcz49.4 - 36.0 gm/dLFTMC HemeAutoSS MCV (RBC) [Entitic vol]86.8 vLGkdlnw12.0 - 100.0 fLFTMC HemeAutoSSPlatelet mean volume (Bld) [Entitic vol]9.7 fLNormal6.4 - 10.8 fLFTMC HemeAutoSSPlatelets (Bld) [#/Vol]257.0 E9/AGuubzk569.0 - 500.0 E9/LFTMC HemeAutoSSRBC (Bld) [#/Vol] 4.8 E12/LNormal4.3 - 5.9 E12/LFTMC HemeAutoSSWBC corrected for nucl RBC Auto (Bld) [#/Vol]8.6 E9/LNormal4.0 - 11.0 E9/LFTMC HemeAutoSSCULTURE WOUNDon 30-87-0793XOSSSRC WOUNDCulture Observations: IN PROCESS. Isolate 1 Streptococcus constellatus Moderate growth ofThe Surgical Hospital at SouthwoodsComment on above:Performed By: #### [id number] #### [facility] [address] [place] [address] Dr. Dalton Menezes ACOG PANEL 2: 21 to on 03-13-2022..NormalOhiohealth Dublin Methodist HospitalComment on above:Performed By: #### [id number] #### [facility] [address] [place] [address] Dr. Dalton Villarreal Gdln ACOG Yevoiju74-25ZyfzlyLimACMC Healthcare SystemComment on above:Performed By: #### [id number] #### [facility] [address] [place] [address] Dr. Dalton PuckettDIAGNOSIS:CommentMcKitrick Hospital on above: Result Comment: NEGATIVE FOR INTRAEPITHELIAL LESION OR MALIGNANCY.Performed By: #### [id number] #### [facility] [address] [place] [address] Dr. Dalton PuckettMethodology:CommentMcKitrick Hospital on above: Result Comment: This liquid based ThinPrep(R) pap test was screened with the use of an image guided system.Performed By: #### [id number] #### [facility] [address] [place] [address] Dr. Dalton PuckettNote:CommentMcKitrick Hospital on above:Result Comment: The Pap smear is a screening test designed to aid in the detection of premalignant and malignant conditions of the uterine cervix. It is not a diagnostic procedure and should not be used as the sole means of detecting cervical cancer. Both false-positive and false-negative reports do occur. .Performed By: #### [id number] #### [facility] [address] [place] [address] Dr. Dalton PuckettPerformed by:CommentMcKitrick Hospital on above: Result Comment: Capri Peterson, Corporate Responsibility Officer (ASCP)Performed By: #### [id number] #### [facility] [address] [place] [address] Dr. Dalton PuckettReflex Criteria:[facility] on above:Result Comment: The HPV DNA reflex criteria were not met with this specimen result therefore, no HPV testing was performed. .Performed By: #### [id number] #### [facility] [address] [place] [address] Dr. Dalton uPckettSpecimelucas adequacy:[facility] on above:Result Comment: Satisfactory for evaluation. Endocervical and/or squamous metaplastic cells (endocervical component) are present.Performed By: #### [id number] #### [facility] [address] [place] [address] Dr. Dalton Ortega Quick Testingon 13-74-4357OzqfhwsuybppljPutcu [employer] Other Quick Fluon 56-06-2297SURAI Ab CF (S) [Titer]Negative [facility] [employer] Other FLUBV Ab CF (S) [Titer]NegativeNortPennsylvania Hospital [facility] [employer] Other Vital Signs Date TimeVital SignValuePerforming FugbmmbjtVgmaseku53-94-5560 09:32-0400Body qvzfab272.9 cmSteven Rusher DPM Work Phone: [phone] [place], [place] [address]Arrvuqrlyr55-87-5396 09:32-0400Body mass index (BMI) [Ratio]23.85 kg/d0Zwkmbm Rusher DPM Work Phone: [phone]06-04-2025 09:32-0400Body .04 kgSteven Rusher DPM Work Phone: [phone] [place], [place] 6003102-27-2025 14:14-0500Body rmvmuz138.6 cmSteven Rusher DPM Work Phone: [phone]02-27-2025 14:14-0500Body mass index (BMI) [Ratio]25.82 kg/l4Lxbrtr Rusher DPM Work Phone: [phone] [place], [place] [address]Wsmkhhttpu50-73-7010 14:14-0500Body uyiobg87.58 kgSteven Rusher DPM Work Phone: [phone]12-05-2024 10:32-0500Body .9 cmSteven Rusher DPM Work Phone: [phone]12-05-2024 10:32-0500Body mass index (BMI) [Ratio]30.42 kg/y6Etmkbf Rusher DPM Work Phone: [phone] [place], [place] [address]Dfqvtdjche92-49-4693 10:32-0500Body .03 kgSteven Rusher DPM Work Phone: [phone] [place], [place] [address]Megxjcywdz30-69-0695 11:31-0500Blood Pressure LocationJENNIFER GILMER [facility]11-26-2024 11:31-0500Body rzgvcboyzkc31.6 [degF]LA SCHERER [facility]11-26-2024 11:31-0500Diastolic blood anznvlcm08 mm[Hg]LA SCHERER [facility]11-26-2024 11:31-0500Heart rate83 /minJENNIFER GILMER [facility]11-26-2024 11:31-0500Respiratory rate16 /minJENNIFER GILMER [facility]11-26-2024 11:31-0500Systolic blood qmadgshu681 mm[Hg]LA SCHERER [facility]11-20-2024 14:38-0500Body kzheqm764.6 cmSteven Rusher DPM Work Phone: [place] [phone] 14:38-0500Body mass index (BMI) [Ratio]25.99 kg/w2Geeuux Rusher DPM Work Phone: [place] [phone] 14:38-0500Body pfahbt38.03 kgSteven Rusher DPM Work Phone: [place] [phone] 09:11-0500Body mass index (BMI) [Ratio]25.99 kg/m2Yesica STEWART Work Phone: [place] [phone] 09:11-0500Body .03 kgAmy Елена STEWART Work Phone: [place] [phone] 09:11-0500Diastolic blood zfyhlarb47 mm[Hg]Yesica STEWART Work Phone: noSaint [facility]–Barry RoadMspwthupyv04-43-6800 09:11-0500Systolic blood umglnbsk502 mm[Hg]Yesica STEWART Work Phone: [facility] HospitalSzsqwggktm24-62-4185 09:27-0500Body gvuqki225.6 cmSteven Rusher DPM Work Phone: [facility] HospitalRegqdkxavc76-06-3008 09:27-0500Body mass index (BMI) [Ratio]23.4 kg/n6Wjeejy Rusher DPM Work Phone: noSaint [facility]–Barry RoadGndzsdkvne03-74-1908 09:27-0500Body ricixh19.77 kgSteven Rusher DPM Work Phone: [facility] HospitalKetzctinki77-41-5701 10:20-0500Body qsoinv635.18 cmPamelraulito Davis Other [employer] Other 11-27-2023 10:20-0500Body mass index (BMI) [Ratio] 22.39 kg/k5MmsgjbBarbra Davis Other [employer] Other 11-27-2023 10:20-0500Body hvkrlhojpks92.1 [degF]Barbra Davis Other [employer] Other 11-27-2023 10:20-0500Body zcfnpa30.86 kgKasiraulito Susan Other [employer] Other 11-27-2023 10:20-0500Respiratory rate19 /minBarbra Davis Other [employer] Other 11-27-2023 10:20-3530SaO9% (BldA) [Mass fraction]99 % Barbra Davis Other [employer] Other 10-07-2023 12:15-0400Body dpdclo218.18 cmLhillary Marquez Other [facility] Other 10-07-2023 12:15-0400Body mass index (BMI) [Ratio] 23.46 kg/t1CflkigJuliette Marquez Other [facility] Other 10-07-2023 12:15-0400Body tbupxcesdka64 [degF]Juliette Jeffersley Other [facility] Other 10-07-2023 12:15-0400Body lufdem47.95 kgJuliette Marquez Other [facility] Other 10-07-2023 12:15-0400Respiratory rate18 /minJuliette Marquez Other [facility] Other 10-07-2023 12:15-2873EpA8% (BldA) [Mass fraction]99 % Juliette Jeffersley Other [facility] Other 09-13-2023 14:27-0400Blood Pressure LocationMichael NILL [facility] Zyzwrjul96-16-5740 14:27-0400Body rnkmemracba47.8 [degF]Sher NILL [facility] Drpuetpu92-31-5922 14:27-0400Diastolic blood mm[Hg]Sher NILL [facility] Rcqwtnnq07-62-8211 14:27-0400Heart rate 70 /minMichael NILL [facility] Pymfacrw09-44-4053 14:27-0400 Respiratory rate16 /minMichael NILL [facility] Ruwmysui04-56-1902 14:27-0400Systolic blood brnidmye106 mm[Hg]Sher NILL [facility] Oyhomjdg08-85-6215 11:00-0400Body .18 Erick Davis Other [facility] Other 04-16-2022 11:00-0400Body mass index (BMI) [Ratio] 22.71 kg/n5KxsuajBarbra Davis Other [employer] Other 04-16-2022 11:00-0400Body rszmawxqwkn24.8 [degF]Barbra Davis Other [employer] Other 04-16-2022 11:00-0400Body jmebtb84.77 kgBarbra Davis Other [employer] Other 04-16-2022 11:00-0953KuH4% (BldA) [Mass fraction]98 % Barbra Davis Other [employer] Other 04-11-2022 13:50-0400Body .18 Nadine Lyn Other [facility] Other 04-11-2022 13:50-0400Body mass index (BMI) [Ratio] 22.71 kg/b0IwycpjdgqJaye Lyn Other [facility] Other 04-11-2022 13:50-0400Body dnccvunpavd171.3 [degF] Jaye Lyn Other [facility] Other 04-11-2022 13:50-0400Body ukjrwr80.77 kgStteresa Lyn Other [facility] [employer] Other 04-11-2022 13:50-3031NsX3% (BldA) [Mass fraction]98 % Jaye Lyn Other [facility] [employer] Other Encounters Encounter DateEncounter TypeCare ProviderFacilityStart: 01-16-2025 End: 19-95-2471btzmktabetDabawdj NEWELLFacility:Occupational Health and WellnessStart: 11-16-2024 End: 18-12-1781Taxuhi flowsheetSteven A Rusher DPM Work Phone: noms PODIATRYStart: 11-16-2024 End: 91-30-1754Wrxfsc flowsheetSteven A Rusher DPM Work Phone: noms PODIATRYStart: 11-16-2024 End: 65-66-0232Yuhkhe outpatient visit 15 minutesSteven A Rusher DPM Work Phone: noms PODIATRYComment on above:Dermatophytosis of nail (Primary Dx); Dystrophic nail; Pain around toenail; OnychocryptosisStart: 11-16-2024 End: 27-20-5843wupnktptuyYTFWRO A RUSHERNot AvailableStart: 09-01-2024 End: 40-42-4198irgjsknfxjSiuc L SchwabFacility:[facility] BellevueStart: 08-23-2024 End: 72-03-7711xfwfeekxvzYuzw L SchwabFacility:[facility] BellevueStart: 08-11-2024 End: 40-94-6067Vmrjbv outpatient visit 15 minutesSteven A Rusher DPM Work Phone: noms PODIATRYComment on above:Dermatophytosis of nail (Primary Dx); Dystrophic nail; Pain around toenailStart: 08-11-2024 End: 38-53-8632ccvwbrgkqdQSKUEH A RUSHERNot AvailableStart: 08-11-2024 End: 02-32-9898Ahmcxb flowsheetSteven A Rusher DPM Work Phone: [facility]S PODIATRYStart: 08-11-2024 End: 47-86-1151Ohifgi flowsheetSteven A Rusher DPM Work Phone: [facility]S PODIATRYStart: 07-27-2024 End: 87-84-7464pihygvxzwvNbui L SchwabFacility:FT evueStart: 05-19-2024 End: 61-17-9608Uvrvbp flowsheetSteven A Rusher DPM Work Phone: [facility]S PODIATRYStart: 05-19-2024 End: 32-47-7042Aizozo flowsheetSteven A Rusher DPM Work Phone: [facility]S PODIATRYStart: 05-19-2024 End: 90-17-4600Faanon outpatient visit 15 minutesSteven A Rusher DPM Work Phone: [facility] PODIATRYComment on above:Paronychia of great toe of right foot (Primary Dx); Pain of right great toe; Onychocryptosis; Difficulty walkingStart: 05-19-2024 End: 94-11-7548ptcraydgvzRNDVGT A RUSHERNot AvailableStart: 05-10-2024 End: 69-99-8777bscszjububWBSTGOJF E PERRYFacility:EU tart: 05-10-2024 End: 16-97-1058Wlaqzhb encounter procedureJENNIFER E GILMER [facility] start: 05-04-2024 End: 99-99-4816Revrlb outpatient visit 15 minutesSteven A Rusher DPM Work Phone: noms PODIATRYComment on above:Dermatophytosis of nail (Primary Dx); Dystrophic nail; Pain around toenail; OnychocryptosisStart: 05-04-2024 End: 58-56-0522mrmemwpdacOEZGFO A RUSHERNot AvailableStart: 05-04-2024 End: 76-15-1067Khbtks flowsheetSteven A Rusher DPM Work Phone: noms PODIATRYStart: 05-04-2024 End: 37-76-4467Wiylvi flowsheetSteven A Rusher DPM Work Phone: noms PODIATRYStart: 34-51-3001gtflshfrehYZMCJHRR PERRYFacility:EU BellevueStart: 04-20-2024 End: 43-69-0753Subkhuheh Result EncounterYesica STEWART Work Phone: noms External Department UnsolicitedStart: 04-20-2024 End: 33-55-1855Atrarixdo Result EncounterYesica STEWART Work Phone: n[facility] External Department UnsolicitedStart: 04-19-2024 End: 01-34-4313Xukhri flowsheetYesica STEWART Work Phone: [facility] BCP OBStart: 04-19-2024 End: 24-41-8691Vboqhb flowsheetYesica STEWART Work Phone: [facility]oms BCP OBStart: 04-19-2024 End: 53-62-9620Lstrxzvwv Result EncounterYesica STEWART Work Phone: noms External Department UnsolicitedStart: 04-19-2024 End: 76-43-3725Muryypn encounter procedureYesica STEWART Work Phone: [facility] Work Phone: Start: 04-19-2024 End: 56-40-6745Tuccypzd preventive med est patient 18-39 yrsYesica STEWART Work Phone: N[facility] BCP OBComment on above:Well woman exam with routine gynecological exam; Frequent urinationStart: 04-19-2024 End: 55-82-2897jlhqcttjjfLOJ RAMEYNot AvailableStart: 04-11-2024 End: 75-34-0678kjlnzqdxlcIogs L SchwabFacility:FT WILFRED BellevueStart: 01-27-2024 End: 62-30-1579opstlstyscKTFFLJ Raulito CHANDANAHERNot AvailableStart: 07-16-2023 End: 38-69-5465Qbpjuk outpatient visit 15 minutesSteven Raulito Chandana DPM Work Phone: [facility] PODIATRYComment on above:Onychocryptosis (Primary Dx); Paronychia of great toe of right foot; Pain of right great toe; Difficulty walkingStart: 05-12-2023 End: 79-27-8972wncdypidacKcyzbw Susan Other [employer] Other Start: 09-84-4365Ggoobslvy encounterPamela NegritoG Urgent Care ClydeStart: 38-52-0171Ifpziq outpatient visit 15 minutesPamela NegritoG Urgent Care ClydeStart: 05-11-2023 End: 34-31-2428gjcejptfkoRpmnpr SusanNo[employer] Other Start: 03-21-2023 End: 00-85-7970mliqepgksqVmfkdd Bailey Other [facility] Other Start: 02-19-6830Uzzrov outpatient visit 15 minutes Juliette Hinkle [facility] ClydeStart: 03-18-2023 End: 87-83-1500Ffn Drop offJodi L Debora [facility] Start: 02-25-2023 End: 62-21-8673Itfcjfq encounter procedureMichael R NILL General Surgery Nill/[facility] [place] Start: 01-30-2023 End: 54-74-9137Eot Drop offJodi L Debora [facility] Start: 11-10-2022 End: 45-87-9907msxdhomvmpKLBAIS DIAB .Facility:V4Pvjcw: 03-05-2022 End: 16-11-7129ozanpxecpbFY TERESITA MEDINA .Facility:Q8Lqzrs: 09-28-2021 End: 30-74-5698degphqpoknFstjpa Dymond Other [facility] [employer] Other Start: 97-60-0494Sgqnws outpatient visit 15 minutes Barrba SusanFPG [facility] ClydeStart: 09-23-2021 End: 77-13-3195cekayuxjntIksmpjiyd Breault Other [facility] [employer] Other Start: 35-12-7710Asxcfl outpatient visit 25 minutes Jaye LynFPG [facility] [place] Procedures DateProcedureProcedure DetailPerforming ClinicianStart: 68-57-6342KMD HEMOGLOBIN A1CYesica STEWART Work Phone: Start: 64-32-6978SWD,APTIMA HPV,AGE GDLNAmy Елена STEWART Work Phone: Start: 52-89-4467Iqmgshwqm cyst (morphologic abnormality)Dana Cazares Cyst of ovary (disorder)LA SCHERER Headache (finding)LA SCHERER Polycystic ovary syndromeJENNIFER GILMER Reattachment of fingerMichael NILL Plan of Treatment DateCare ActivityDetailAuthorStart: 04-24-2025 End: 07-92-1486Hneulce encounter fpnkzyopi17/10/2025 10:00 AM EST Office Visit [facility] [address] [place] [phone] Yesica Saldivar PA [address] [place] [address] [place] [address] [facility] BCP OBStart: 02-22-2025 End: 29-55-5554Msfulwb encounter igyjznqxr88/10/2025 1:00 PM EDT Office Visit [facility] [address] [place] [phone] Layo Gautam, DPM [address] [place] [address] [facility] FH PODIATRYStart: 11-16-2024 End: 14-95-1322Hxkwfnp encounter procedureNOMS FH PODIATRYComment on above: ArrivedStart: 08-11-2024 End: 95-25-2527Nnkcisj encounter procedureNOMS FH PODIATRYComment on above: ArrivedStart: 05-19-2024 End: 94-87-8041Rkjvnju encounter wyizsybbl10/05/2024 10:30 AM EST Office Visit [facility] [address] [place] [phone] Layo Gautam, MAXINE [address] [place] [address] ArrivedNOMS FH PODIATRYComment on above:ArrivedStart: 05-04-2024 End: 19-10-9083Ckqmsoc encounter procedureNOMS FH PODIATRYComment on above: ArrivedStart: 04-19-2024 End: 68-83-7204WQI W Auto Differential panel - BloodCBC and differential Lab Routine Well woman exam with routine gynecological exam Expected: 04/19/2024 (Approximate), Expires: 04/19/2025NOMS HealthcareComment on above:Expected: 04/19/2024 (Approximate), Expires: 04/19/2025Start: 04-19-2024 End: 06-09-6549Xtixydbfgnlac metabolic 2000 panel - Serum or PlasmaComprehensive metabolic panel Lab Routine Well woman exam with routine gynecological exam Expected:04/19/2024 (Approximate), Expires: 04/19/2025NOMS HealthcareComment on above:Expected: 04/19/2024 (Approximate), Expires: 04/19/2025Start: 04-19-2024 End: 56-85-9093Djwgmzlhpx A1c/Hemoglobin.total in BloodHemoglobin A1c Lab Routine Well woman exam with routine gynecological exam Expected: 04/19/2024 (Approximate), Expires: 04/19/2025NOMD HealthcareComment on above:Expected: 04/19/2024 (Approximate), Expires: 04/19/2025Start: 04-19-2024 End: 13-86-4596Yzwiv 1996 panel - Serum or PlasmaLipid panel Lab Routine Well woman exam with routine gynecological exam Expected: 04/19/2024 (Approximate), Expires: 04/19/2025NOMS HealthcareComment on above:Expected: 04/19/2024 (Approximate), Expires: 04/19/2025Start: 04-19-2024 End: 97-66-4895Shnmmsrvlyq [Units/volume] in Serum or PlasmaTSH Lab Routine Well woman exam with routine gynecological exam Expected: 04/19/2024 (Approximate), Expires: 04/19/2025NOMD HealthcareComment on above:Expected: 04/19/2024 (Approximate), Expires: 04/19/2025Start: 04-19-2024 End: 13-38-8084Piruhawsws complete panel - UrineUrinalysis with reflex microscopic Lab Routine Frequent urination Expected: 04/19/2024 (Approximate), Expires: 04/19/2025NOMS HealthcareComment on above:Expected: 04/19/2024 (Approximate), Expires: 04/19/2025Start: 04-19-2024 End: 25-75-0096Ggkzrbt encounter procedureNOMS BCP OBComment on above:Arrived Start: 10-21-2023 End: 01-10-1160Mrjwlup encounter /08/2024 3:15 PM EDT Office Visit [facility] [address] [place] [address] Layo aGutam DPM [address] [place] [address] NOMS PODIATRYCytology Cervical or vaginal smear or scraping studyPap Smear Pathology and Cytology Routine Well woman exam with routine gynecological exam Ordered: 04/19/2024[facility] Work Phone: comment on above:Ordered: 04/19/2024 Immunizations Immunization DateImmunizationNotesCare ProviderFacilityNEGATED: Highlighted row has not occurred!19-80-3434ekluyazas virus vaccine, unspecified formulation LA SCHERER 121-5390Swcfuq-QobjcEast [facility] [place] Payers DatePayer CategoryPayerPolicy [id number] [facility] Medical CenterBS [id number] BS [id number] 2023-Present [phone] [id number] [place] [address] [id number] 2..1.472591.3.57[id number] 2..1.892704.3.57[id number] 2..1.804557.3.579.2.[id number] 2..840.1.110065.3.57[id number] 2.16.840.1.212563.3.579.2.630296-97-3775Wjbflgq1524617 2..840.1.526144.3.579.2.877450-78-7108Ozgklcf1011513 2.840.1.510202.3.579.2.587893-76-3278Fxxmcys1653841 2..840.1.228191.3.579.[id number] 2.16.840.1.291506.3.579.[id number] 2.0.1.578811.3.57[id number] 2.840.1.337936.3.57[id number] 2.840.1.423435.3.57[id number] 2.840.1.407005.3.579.2.45231-02-1339Ivew Cross Blue [id number] 2.0.2.495859.00256931-69-9223Nleb-payBlue Cross Blue [id number] 2.[id number] 2.840.1.025988.3.579.2.531 Social History DateTypeDetailFacilityUnknown if ever smokedNort Sand Technology Other Start: 06-18-2023 End: 53-36-9026[facility]-30-2023 End: 41-72-3690Rmtxnsk smoking statusNever smoked tobacco (finding)[facility] [place] smoking statusNeverSelect Medical [facility] Hospital, Edwin ShawueStart: 88-54-9613Waxgfat use and exposureSmokeless tobacco non-userNOMD HealthcareStart: 07-16-2023 End: 83-78-8194Etawkhq intakeCurrent drinker of alcohol (finding)[facility] Start: 06-18-2023 End: 13-48-0042Leemytd of Social functionNOMS HealthcareHow often to you have a drink containing alcohol?Monthly or lessNOMS HealthcareHow many standard drinks containing alcohol do you have on a typical day?1 or 2NOMS HealthcareHow often do you have 6 or more drinks on 1 occasion?MonthlyNOMD HealthcareStart: 08-41-7671Stipcjn Comment1-2 drinks less than monthly in the past yearNOMD HealthcareStart: 75-54-8086Khl Assigned At BirthNot on [facility] Functional Status ZrwySroehobugoRbkiruVnbnmmzr18-07-3959Yewscdyhpx StatusN/AExecutive Urology of [facility]09-13-2023Functional StatusN/AGeneral Surgery [place] Clinical Notes 09-23-2021 to 11-16-2024 Note Date & GadyRtahRfrtzyqt30-76-4572 History of Present illness Narrative* Layo Gautam, DPM - 11/16/2024 9:30 AM EDT Images from the original note were not included. Subjective Patient ID: Jewell Richardson is a 29 y.o. female who presents for Fungus (Pt is here today for FUV nail fungus, she completed the oral Lamisil, she did notice she felt itchy while taking it. /SS: 8). HPI Follow-up assessment: Onychodystrophy/mycosis bilateral great toes. Patient completed most recent 90 day course oral Lamisil therapy end of October 2024. Reports transientpruritus; which has resolved with completion of therapy. Relates continued improvement from baseline; particularly the right great toe. Reports good compliance with adjunctive topical care measures. Generally well satisfied with response and progress to date. Mildly symptomatic over the past several weeks or so. Denies bleeding or drainage. Medications Current Outpatient Medications: ibuprofen 800 MG tablet, Take 800 mg by mouth every 8 (eight) hours PRN, Disp: , Rfl: levonorgestrel-ethinyl estradiol (Seasonale) 0.15-0.03 MG tablet, Take 1 tablet by mouth Daily, Disp: , Rfl: Allergies Lamisil [terbinafine] Past Surgical History No past surgical history on file. Family History Family History Problem Relation Name Age of Onset Diabetes Paternal Grandfather Rajan Zimmer Cancer Other Objective General Examination: GENERAL EXAMINATION: Alert and oriented. Pleasant disposition. Vascular: DORSALIS PEDIS [...] noted. NAIL PATHOLOGY: Right great toe: Estimate 5-10 % residual DSO deformity; with distal subungual keratotic and mycotic debris. The margins are incurvated, mildly keratotic, non-inflamed, non-tender; without drainage. Left great toe: Persistent residual DSO deformity. There remains distal subungual [...] 90 day course of oral terbinafine therapy end of October 2024; with mild transient pruritus. Plantar myofasciitis symptoms of the right foot by history; effectively resolved with Powerstep orthoses. Plan: Notes: review of clinical findings, differential diagnosis, recalcitrant nature of condition left great toe, overall response to date, treatment strategy and objectives. Positive dermatophyte identification by history. Review of overall efficacy with oral Lamisil therapy, benefit/risk profile, anticipated time frame for effective nail plate clearing, potential for recalcitrance and/or relapse. Adjunctive topical care: Fungi foam 1%, preceded by use of vinegar and/or Listerine as directed; encompassing cuticle massage. Discussed eventual formula 7 therapy. Hygiene and skin care measures discussed. Procedure: [...] understanding. Layo Gautam DPM documented in this [facility]06-04-2025 Instructions* Patient Instructions* Layo Gautam DPM - 11/16/2024 9:30 AM EDT Topical care measures as noted documented in this [facility]02-27-2025 History of Present illness Narrative* Layo Gautam DPM - 08/11/2024 2:15 PM EST Images from the original note were not included. Subjective Patient ID: Jewell Richardson is a 28 y.o. female who presents for Lamisil FUV ( Jewell Richardson is a 28 y.o.female who presents for FUV of Lamisil. Patient [...] The margins are incurvated, mildly keratotic, non-inflamed, non-tender;without drainage. Left great toe: Maintains near-complete proximal [...] terbinafine therapy in June of 2023; without adverseeffects. Plantar myofasciitis symptoms of the right foot; effectively resolved with Powerstep orthoses. Plan: Notes: review of clinical findings, differential diagnosis, recalcitrant nature of condition left great toe, overall response to date, treatment strategy and objectives. Positive dermatophyte identification by history. [place] agreement for another 90 day course of [...] understanding. Layo Gautam DPM documented in this [facility]02-27-2025 Instructions* Patient Instructions* Layo Gautam DPM - 08/11/2024 2:15 PM EST As noted documented in this [facility]12-05-2024 History of Present illness Narrative* Layo Gautam DPM - 05/19/2024 10:30 AM EST Images from the original note were not [...] toenail medial margin of the right great toe;which has developed over the past several days. [...] near complete clearing of the nail plate; withmild residual DSO relapse. The medial nail plate [...] understanding. Layo Gautam DPM documented in this [facility]12-05-2024 Instructions* Patient Instructions* Layo Gautam DPM - 05/19/2024 10:30 AM EST As noted documented in this [facility]11-27-2024 NotePatient Education Urology Urinary Frequency, Adult Urinary frequency [...] keep your urine pale yellow. ? Take cyzi-mwm-iyywboe or prescription medicines. ? Eat foods that are high in fiber, such as beans, whole grains, and fresh fruits and vegetables. ? Limit foods that are high in fat and processed sugars, such as fried or sweet foods. General instructions ??? Take znva-tpo-tvntqql and prescription medicines only as told by [...] fluid and do not have a bladder infectionor other bladder condition. ??? Your health care provider may recommend that you keep a bladder diary, follow a bladder training program, or make dietary changes. ??? If told by your health care provider, do Kegel exercises to strengthen the muscles that help control urination. ??? Take pnrl-xla-cswinhc and prescription medicines only as told by your health care provider. ??? Contact a health care provider if your symptoms do not improve or get worse. This information is not intended to replace advice given to you by your health care provider. Make sure you discuss any questions you have with your health care provider. Document Revised: 01/04/2021 Document Reviewed: 01/04/2021 [employer] Patient Education ? 2023 [employer] 05-04-2024 History of Present illness Narrative* Layo Gautam, MAXINE - 05/04/2024 2:45 PM EST Images from the original note were not [...] June 2023. Reports no adverse effects. Relates continuedimprovement from baseline; particularly with the left great toe since last visit. Reports good compliance with adjunctive topical care measures. Generally well satisfied with response and progress todate. Patient well satisfied with Powerstep orthoses; comments [...] near complete clearing of the nail plate; withmild residual DSO relapse. Left great toe: Maintains [...] understanding. Layo Gautam DPM documented in this [facility]11-20-2024 Instructions* Patient Instructions* Layo Gautam DPM - 05/04/2024 2:45 PM EST Topical care measures as noted documented in this [facility]11-05-2024 History of Present illness Narrative* TERRY Lange - 04/19/2024 9:00 AM EST Reason for Appointment: Patient ID: Jewell Richardson [...] nursing note reviewed. Exam conducted with a assisted living executive director present. Vitals: Estimated body mass index is [...] weight loss. She would like a referral tourology. We will also send wellness labs and urinalysis order for evalulation Orders Placed This Encounter Procedures TSH Lipid panel Comprehensive metabolic panel Hemoglobin A1c CBC and differential Urinalysis with reflex microscopic Follow Up: Patient is to return in one year for annual unless needed otherwise. Documented by Cris Lebron LPN on behalf of: TERRY Lange documented in this encounterFitzgibbon [id number] History of Present illness Narrative* Layo Gautam, MAXINE - 07/16/2023 9:30 AM EST Images from the original note were not [...] understanding. Layo Gautam DPM documented in this [facility]02-01-2024 Instructions* Patient Instructions* Layo Gautam DPM - 07/16/2023 9:30 AM EST As noted documented in this [facility]11-27-2023 Evaluation note* Encounter Date Diagnosis Assessment Notes Treatment Notes Treatment Clinical Notes Apr, Dysuria (ICD-10 - R30.0) Drink plenty fluids, get plenty of rest. You may take Tylenol as needed for pain. Take cranberry pills as needed for dysuria. Your urine will be sent for culture and we will call you with the resultsif we need to place you on an antibiotic. No antibiotic is needed at this time. Follow-up with yourfamily physician if no improvement in 2 to 3 days. Patient recently finished a course of doxycycline for a UTI that was diagnosed approximately 5 daysago. She states she feels somewhat better. Denies nausea vomiting chills or fevers. Denies any headache. [employer] Other 10-07-2023 Evaluation note* Encounter Date Diagnosis Assessment Notes Treatment Notes Treatment Clinical Notes Mar, Strain of right trap ezius muscle, initial encounter (ICD-10 - S46.811A) Discussed with patient exam is consistent with muscular strain to area. Continue heat, gentle stretching, topical rubs such as Biofreeze. Will Rx as needed cyclobenzaprine. Discussed may cause drowsiness, caution advised. Continue ibuprofen 800 3 times daily, Tylenol in between as needed. Avoid strenuous activity until symptoms have improved. Follow-up with PCP if not gradually improving over thenext week. Patient verbalized understanding of treatment plan. [employer] Other 10-04-2023 Evaluation + Plan note Diagnostic Tests Pending * PAP IG w/rflx HPV 03/18/23 [facility]04-16-2022 Evaluation note* Encounter Date Diagnosis Assessment Notes Treatment Notes Treatment Clinical Notes Sep, Acute sinusitis, rec urrence not specified, unspecified location (ICD-10 - J01.90) Drink plenty fluids, get plenty of rest. Take the amoxicillin with clavulanate as prescribed until gone. Take the prednisone as prescribed until gone. Use the Flonase inhaler as prescribed until yoursymptoms improve. You may continue your gpaq-lje-cdezluk medications as instructed. Follow-up with your family physician if no improvement in 2 to 3 days. [employer] Other 04-11-2022 Evaluation note* Encounter Date Diagnosis Assessment Notes Treatment Notes Treatment Clinical Notes Sep, Fever (ICD-10 - R50.9) Sep,Viral URI (ICD-10 - J06.9)Symptoms appear viral today. Bacteria infections take several days to weeks of symptoms to develop.Use saline nasal spray before prescription one and you have better results. Recommend OTC medications such as Mucinex DM, Delsym, Cepocal Lozenges Continue tylenol/ibuprofen for general discomfort. Encourage fluids. Symptoms should improve within the next 10-14 days. If no improvement of symptoms in 14 days call primary care provider to discuss antibiotic therapy [facility] [employer] Other Evaluation + Plan note No data available for this section [facility] noteNo InformationNortPennsylvania Hospital [facility] [employer] Other Evaluation note* Diagnosis Onychocryptosis- Primary Ingrowing nail Paronychia of great toe of right foot Pain of right great toe Difficulty walking Difficulty in walking [facility]* Diagnosis Well woman exam with routine gynecological exam Routine gynecological examination Frequent urination Urinary frequency documented in this encounter [facility] Healthcare[facility]* Diagnosis Dermatophytosis of nail- Primary Dystrophic nail Other specified disease of nail Pain around toenail Onychocryptosis Ingrowing nail documented in this encounter [facility]* Diagnosis Paronychia of great toe of right foot- Primary Pain of right great toe Onychocryptosis Ingrowing nail Difficulty walking Difficulty in walking [facility]* Diagnosis Dermatophytosis of nail- Primary Dystrophic nail Other specified disease of nail Pain around toenail documented in this encounter [facility] HealthcareEvaluation note* Diagnosis Dermatophytosis of nail- Primary Dystrophic nail Other specified disease of nail Pain around toenail Onychocryptosis Ingrowing nail documented [facility] encounter [facility] Healthcare[facility] general Narrative - Reported* Type Description Date Medical History acne Medical Historyasthma-not confirmed [facility] [employer] Other Hospital Discharge instructions No data available for this section [facility] No data available for this section [facility] Summary Purpose Family History No Family [...] FOR VISIT (unrecogniz ed section and content) ReasonCommentsIngrown ToenailEstablished pt presents today for possible ingrown nail, RGT. Started to become bothersome about a week ago. Pt states she feels pressure on nail when wearing work shoes. Pt has been soaking in epsomsalts. ReasonComments[facility] Women VisitReasonCommentsRomel Richardson is a 28 y.o. female, Established pt presents today for lamisil fuv, RGT. 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 Started to become bothersome on Thursday.ReasonCommentsLamisil Violet Richardson is a 28 y.o. female who presents for FUV of Lamisil. Patient relates very slow progress. ReasonCommentsFungusPt is here today for FUV nail fungus, she completed the oral Lamisil, she did notice she felt itchywhile taking it. SS: 8 INFORMATION SOURCE (unrecogn ized section and content) DATE CREATED AUTHOR 11/21/2022 [facility] DATE CREATED AUTHOR AUTHOR'S ORGANIZ ATION 05/22/2023 [facility] DATE CREATED AUTHOR AUTHOR'S ORGANIZ ATION 11/17/2024 [facility] DATE CREATED AUTHOR AUTHOR'S ORGANIZ ATION 01/18/2025 [facility] Patient Care team informatio n (unrecognized section and content) Team MemberRelationshipSpecialtyStart DateEnd Date Lindy Mcgregor MD [address] [place] [address] PCP - GeneralFamily Medicine03/09/23Team MemberRelationshipSpecialtyStart DateEnd Date Lindy Mcgregor MD [address] [place] [address] PCP - GeneralFamily Medicine03/09/23Team MemberRelationshipSpecialtyStart DateEnd Date Lindy Mcgregor MD [address] [place] [address] PCP - GeneralFamily Medicine03/09/23Team MemberRelationshipSpecialtyStart DateEnd Date Lindy Mcgregor MD [address] [place] [address] PCP - Generalmily Medicine03/09/23Team MemberRelationshipSpecialtyStart DateEnd Date Lindy Mcgregor MD [address] [place] [address] PCP - Generalmi Medicine03/09/23Team MemberRelationshipSpecialtyStart DateEnd Date Lindy Mcgregor MD [address] [place] [address] PCP - Generalmily Medicine03/09/23Team MemberRelationshipSpecialtyStart DateEnd Date Lindy Mcgregor MD [address] [place] [address] PCP - Generalmily Medicine03/09/23Team MemberRelationshipSpecialtyStart DateEnd Date Dana Cazares MD [address] [place] [address] Primary Care Providermily Medicine11/16/24Team MemberRelationshipSpecialtyStart DateEnd Date Dana Cazares MD [address] [place] [address] Primary Care Providermily Medicine11/16/24 FOR RECORDS PERTAINING TO PATIENTS WHO ARE [...] BE BASED ON THE PRIMARY CLINICAL RECORDS. [facility] [employer] [facility]. provides no warranty or guarantee of the accuracy or completeness of information in this document.
[2025-05-09 12:08] LABS: Age Gdln ACOG Testing Note (.); IGP, rfx Aptima HPV ASCU Note (.)
== END 2025-05-04 16:02 | disposition home or self-care (01) ==
LOC: LAB 16:01
PROVIDERS: PCP Nurse Practitioner; Visit Provider Physician Assistant
DX: Z01.419 Encounter for gynecological examination (general) (routine) without abnormal findings (principal)
CPT/HCPCS: 88175